=== PATIENT | female | born 1940 | race Caucasian/White ===

== ENCOUNTER → 2018-01-01 | Outpatient (CLI) | payer OTHER, MEDICARE ==
[2018-01-01 10:07] LABS: BASO % 0.4 %; BASO ABS # 0.03 K/uL (0-0.2); EOS % 5.4 %; HEMOGLOBIN 13.9 g/dL (12.0-16.0); IG# 0.03 K/uL (0.00-0.02); LYMPH % 25.7 %; LYMPH ABS # 1.89 K/uL (1.2-3.4); MEAN CELL VOLUME 92.3 fL (80-100); MEAN CORPUSCULAR HEMOGLOBIN 31.3 pg (25-34); MEAN CORPUSCULAR HGB CONC 33.9 g/dl (32-36); MEAN PLATELET VOLUME 9.5 fL (7.4-10.4); MONO % 10.1 %; MONO ABS # 0.74 K/uL (0.11-0.59); NEUT ABS # 4.26 K/uL (1.4-6.5); PLATELET COUNT 208 K/uL (130-400); RED CELL DISTRIBUTION WIDTH CV 13.7 % (11.5-14.5); RED CELL DISTRIBUTION WIDTH SD 46.3 fL (36.4-46.3); WHITE BLOOD COUNT 7.35 K/uL (4.8-10.8)
[2018-01-01 10:15] LABS: ALBUMIN 3.5 gm/dl (3.4-5.0); BLOOD UREA NITROGEN 13 mg/dl (7-18); CALCIUM 9.4 mg/dl (8.5-10.1); CARBON DIOXIDE 30 mmol/L (21-32); CREATININE 0.83 mg/dl (0.60-1.20); GLUCOSE 80 mg/dl (70-99); POTASSIUM 3.5 mmol/L (3.5-5.1); SODIUM 139 mmol/L (136-145)
[2018-01-01 10:26] LABS: ALKALINE PHOSPHATASE 67 U/L (45-117); ALT/SGPT 28 U/L (12-78); AST/SGOT 20 U/L (15-37); TOTAL PROTEIN 6.9 gm/dl (6.4-8.2)
== END | disposition home or self-care (01) ==
LOC: C.LABVPSUW 09:30
PROVIDERS: ATTEND Internal Medicine Critical Care Medicine
DX: D64.9 Anemia, unspecified (principal); E03.9 Hypothyroidism, unspecified; I10 Essential (primary) hypertension; L93.0 Discoid lupus erythematosus

== ENCOUNTER 2019-04-16 10:34 | Inpatient (IN) ==
[2019-04-16 11:37] LABS: Basophils # (auto) 0.03 K/uL (0-0.2); Basophils % (auto) 0.2 %; Eosinophils # (auto) 0.03 K/uL (0-0.5); Eosinophils % (auto) 0.2 %; Hematocrit (blood only) 38.8 % (37-47); Hemoglobin 13.9 g/dL (12.0-16.0); Immature Granulocytes # (auto) 0.06 K/uL (0.00-0.02); Immature Granulocytes % (auto) 0.4 %; Lymphocytes # (auto) 0.95 K/uL (1.2-3.4); Lymphocytes % (auto) 5.7 %; Mean Corpuscular Hgb Conc 35.8 g/dL (32-36); Mean Corpuscular Volume 89.6 fL (80-100); Mean Platelet Volume 8.7 fL (7.4-10.4); Monocytes # (auto) 1.41 K/uL (0.11-0.59); Monocytes % (auto) 8.5 %; Neutrophils # (auto) 14.12 K/uL (1.4-6.5); Platelet Count 252 K/uL (130-400); RDW Coefficient of Variation 12.8 % (11.5-14.5); RDW Standard Deviation 42.2 fL (36.4-46.3); Red Blood Count 4.33 M/uL (4.2-5.4)
[2019-04-16] MEDS ORDERED: SODIUM CHLORIDE 0.9% 500 ML IV SCH (11:45)
[2019-04-16 11:52] LABS: Albumin Level 3.3 gm/dl (3.4-5.0); BUN Creatinine Ratio 13.5 (10-20); Calcium 9.6 mg/dl (8.5-10.1); Creatinine Clr Calc Pharmacy 52.5 ml/min; Est GFR (African American) 76.6; Est GFR (Non-African American) 66.1; Potassium 3.8 mmol/L (3.5-5.1)
[2019-04-16 11:54] LABS: Appearance Urine Clear (Clear); Bacteria Urine Automated Negative (Negative); Bilirubin Urine Negative (Negative); Blood Urine Negative (Negative); Color Urine Yellow; Glucose Urine UA Negative (Negative); Ketones Urine Negative (Negative); Leukocyte Esterase Urine 2+ (Negative); Nitrite Urine Negative (Negative); Protein Urine Negative (Negative); Specific Gravity Urine 1.015 (1.000-1.030); Urobilinogen Urine Negative (Negative)
[2019-04-16 11:56] LABS: Albumin Globulin Ratio 0.8 (0.9-2); Bilirubin,Total 0.4 mg/dl (0.2-1); Total Protein 7.3 gm/dl (6.4-8.2)
[2019-04-16] MEDS ORDERED: IOVERSOL 100ml IV PRN (12:32)
--- NOTE | 2019-04-16 12:46 | CT Scan Report ---
CT SCAN OF THE ABDOMEN AND PELVIS WITH IV CONTRAST CLINICAL HISTORY: Left lower quadrant abdominal pain. COMPARISON STUDY: No priors. TECHNIQUE: Following the IV administration of 94 cc of Optiray 320, CT scan of the abdomen and pelvi s is performed from the lung bases to the proximal femora. Images are reviewed in the axial, sagittal , and coronal planes. IV contrast was administered without complication. A dose lowering technique wa s utilized adhering to the principles of ALARA. CT DOSE: 484.39 mGy.cm FINDINGS: Lung bases: The heart is normal in size and without pericardial effusion. The coronary arteries are d ensely calcified. The lung bases are clear. Postoperative change is noted in the left breast. A 5.5 x 3 cm fluid collection left breast likely represents a seroma. There is a tiny hiatal hernia. Liver: The contrast-enhanced liver is normal in size, contour, and attenuation. There is no intrahepa tic biliary ductal dilatation. The hepatic veins and portal veins are patent. Gallbladder: Unremarkable. Spleen: Normal in size and attenuation. Pancreas: Unremarkable. Adrenal glands: Unremarkable. Kidneys: The contrast enhanced kidneys demonstrate mild cortical atrophy and are without hydronephros is. The kidneys enhance symmetrically. Abdominal vasculature: The abdominal aorta is normal in course and caliber noting mild to moderate at herosclerotic calcification. Bowel: There is no bowel obstruction. There are scattered colonic diverticula. There is focal wall th ickening involving the distal descending/proximal sigmoid colon with surrounding inflammatory change and trace fluid. The appearance is typical for acute diverticulitis. There is a small and multilocula yared diverticular abscess seen on image #327 which measures approximately 2 x 3 x 1.5 cm. The appendix is well-visualized and normal. Peritoneum: Trace free fluid is noted in the paracolic gutter and the pelvis. No intraperitoneal free air is seen. Lymphadenopathy: None. Pelvic viscera: Evaluation of the pelvis is degraded by streak artifact from a right hip arthroplasty . The bladder is partially distended and grossly unremarkable. The uterus is surgically absent. No ad nexal lesion is seen. Skeletal structures: The skeletal structures are osteopenic. There is [id number] lumbosacral s pondylosis and scoliosis. No lytic or blastic lesions are seen. A right hip arthroplasty is in place. IMPRESSION: 1. Findings are consistent with acute diverticulitis involving the distal descending/proximal sigmoid colon. 2. There is a small loculated diverticular abscess which measures approximately 2 x 3 x 1.5 cm. 3. No intraperitoneal free air is seen. 4. Postoperative change is noted in the left breast, with an associated 5.5 cm simple appearing fluid collection. This likely represents a seroma. Clinical correlation will be required. 5. Additional findings as above. Electronically signed by: Navneet Suresh M.D. 04/16/2019 12:44 PM
[2019-04-16] MEDS ORDERED: AMPICILLIN/SULBACTAM SOD 3,000 MG in 0.9 % SODIUM CHLORIDE 100 ML IV STA (13:07)
--- NOTE | 2019-04-16 14:04 | History & Physical Report ---
Date of Service April 16, 2019 Assessment & Plan (1) Diverticulitis: Patient with diverticulitis with abscess formation. Presently afebrile, hemodynamically stable, non-toxic in appearance. Abdomen is soft, NT and ND. No prior history of diverticulitis. -Observation to medical floor -Unasyn 3mg IV q 6 hours -LR at 80mL/hr x 1 liter -Clear liquid diet -General Surgery consultation -Patient should have referral to GI for colonoscopy after acute issues resolve Present on Admission?: Yes (2) Colonic diverticular abscess: As above Present on Admission?: Yes (3) Lupus: Chronic. Stable -Continue Plaquenil -Continue Prednisone -Stress dosed steroids should patient develop hypotension Present on Admission?: Yes (4) Hypertension: Blood pressure stable at present -Continue Lisinopril -Continue HCTZ -Continue to monitor Present on Admission?: Yes (5) Gout: Chronic. Stable. No acute flare -Continue Allopurinol Present on Admission?: Yes (6) Breast cancer: Patient in remission Present on Admission?: Yes (7) UTI (urinary tract infection): Patient on Nitrofurantoin. Afebrile, no urinary symptoms -Unasyn as above F/E/N - LR at 80mL/hr, monitor electrolytes and replete as needed, Clear liquids for now Ppx - low risk for DVT Code -DNR/DNI per discussion with patient Dispo - Obs to medical floor History of Present Illness Chief Complaint: diverticulitis with abscess Primary Care Provider: [facility] Mrs. Hayward is a pleasant 78yo C female with history of lupus presenting with acute diverticulitis. She has had abdominal pain in the LLQ for the last 7-10 days. Pain is intermittent, squeezing, crescendo, 4/10 in severity. She denies nausea/vomiting/abdominal distention/fevers/chills. Her BMs have been more loose than usual. She had an episode of watery diarrhea this AM. Denies m marguerite/hematochezia. No known history of diverticulitis. Reports last screening colonoscopy performed approximately 10 years ago at the [facility] with no concerning findings. No additional complaints at this time. Recent UTI - patient on day 4/5 of Macrobid ER Course: Unasyn, NSS, Surgical consult Allergies Allergy/AdvReac Type Severity Reaction Status Date / Time SEAFOOD AdvReac Severe Gastrointestinal Uncoded 04/16/19 12:27 Upset Home Medications Home Medications Medication Instructions Recorded Confirmed Type allopurinol [Zyloprim] 300 mg PO QAM 02/16/19 04/16/19 History cholecalciferol (vitamin D3) 4,000 unit PO QAM 02/16/19 04/16/19 History [Vitamin D3] hydrochlorothiazide 25 mg PO QAM 02/16/19 04/16/19 History hydroxychloroquine [Plaquenil] 300 mg PO QAM 02/16/19 04/16/19 History lisinopril [Zestril] 5 mg PO QAM 02/16/19 04/16/19 History bjai-3-oiv-dha-fish oil-flax-E 1 cap PO QAM 02/16/19 04/16/19 History [Thera Tears Nutrition] prednisone 5 mg PO QAM 02/16/19 04/16/19 History nitrofurantoin monohyd/m-cryst 100 mg PO BID 04/16/19 04/16/19 History Past Med/Surg History Medical History Breast cancer In remission Gout H/O: hysterectomy Hypertension Lupus Surgical History H/O bladder repair surgery Family History Other Coronary heart disease Social History Preferred Language: [place] marital status: Current Living Situation: Spouse current occupational status: retired Feels Safe at Home: Yes Smoking Status: Former smoker Hx Alcohol Use: No Hx Substance Use: No Review of Systems Review of Systems: All systems reviewed & are unremarkable except as noted in HPI & below Physical Exam Physical Exam: General: patient resting comfortably, NAD, non-toxic in appearance, AA&O x 4 Skin: warm, dry, intact, no rashes or lesions HEENT: NC/AT, PERRL, EOMI, anicteric sclera, conjunctiva without injection, external ear normal to inspection and nontender, nares patent, moist mucus membranes, dentition intact, no oropharyngeal lesions, neck supple, trachea midline, no LAD, no thyromegaly, no JVD Heart: +S1/S2, regular, no m/r/g Lungs: equal air entry bilaterally, no rales/rhonchi/wheezes Abd: +BS, soft, NT/ND, no masses/organomegaly/ascites Ext: warm, 2+ pulses in UE/LE bilaterally, no clubbing/cyanosis or edema Neuro: nonfocal, patient AA&O x 4, speech intact, no facial droop, moving all extremities on command with equal strength 5/5 Results & Data Vital Signs (Past 12 Hours) Vital Signs Temp Pulse Pulse Resp BP BP Pulse Ox 04/16/19 12:30 77 16 99/64 L 99 04/16/19 10:36 36.6 C 97 H 18 120/76 95 Laboratory Results Lab Results 04/16/19 04/16/19 04/16/19 Range/Units 11:30 11:30 11:39 WBC 16.60 H (4.8-10.8) K/uL RBC 4.33 (4.2-5.4) M/uL Hgb 13.9 (12.0-16.0) g/dL Hct 38.8 (37-47) % MCV 89.6 (80-100) fL MCH 32.1 (25-34) pg MCHC 35.8 (32-36) g/dL RDW Std Deviation 42.2 (36.4-46.3) fL RDW Coeff of Ivana 12.8 (11.5-14.5) % Plt Count 252 (130-400) K/uL MPV 8.7 (7.4-10.4) fL Immature Gran % (Auto) 0.4 % Neut % (Auto) 85.0 % Lymph % (Auto) 5.7 % [place] % (Auto) 8.5 % Eos % (Auto) 0.2 % Baso % (Auto) 0.2 % Immature Gran # (Auto) 0.06 H (0.00-0.02) K/uL Neut # (Auto) 14.12 H (1.4-6.5) K/uL Lymph # (Auto) 0.95 L (1.2-3.4) K/uL [place] # (Auto) 1.41 H (0.11-0.59) K/uL Eos # (Auto) 0.03 (0-0.5) K/uL Baso # (Auto) 0.03 (0-0.2) K/uL Sodium 137 (136-145) mmol/L Potassium 3.8 (3.5-5.1) mmol/L Chloride 101 (98-107) mmol/L Carbon Dioxide 29 (21-32) mmol/L Anion Gap 7.0 (3-11) BUN 11 (7-18) mg/dl Creatinine 0.85 (0.6-1.2) mg/dl Est Cr Clr Drug Dosing 52.5 ml/min Est GFR ( Amer) 76.6 Est GFR (Non-Af Amer) 66.1 BUN/Creatinine Ratio 13.5 (10-20) Glucose 123 H (70-99) mg/dl Calcium 9.6 (8.5-10.1) mg/dl Total Bilirubin 0.4 (0.2-1) mg/dl AST 22 (15-37) U/L ALT 28 (12-78) U/L Alkaline Phosphatase 75 (45-117) U/L Total Protein 7.3 (6.4-8.2) gm/dl Albumin 3.3 L (3.4-5.0) gm/dl Globulin 4.0 (2.5-4.0) gm/dl Albumin/Globulin Ratio 0.8 L (0.9-2) Lipase 114 (73-393) U/L Urine Color Yellow Urine Appearance Clear (Clear) Urine pH 7.0 (4.5-7.5) Ur Specific Ola 1.015 (1.000-1.030) Urine Protein Negative (Negative) Urine Glucose (UA) Negative (Negative) Urine Ketones Negative (Negative) Urine Blood Negative (Negative) Urine Nitrite Negative (Negative) Urine Bilirubin Negative (Negative) Urine Urobilinogen Negative (Negative) Ur Leukocyte Esterase 2+ H (Negative) Urine WBC (Auto) 5-10 H (0-5) /hpf Urine RBC (Auto) 5-10 H (0-4) /hpf U Hyaline Cast (Auto) 1-5 (0-5) /lpf U Epithel Cells (Auto) 10-20 H (0-5) /lpf Urine Bacteria (Auto) Negative (Negative) Diagnostic Findings CT SCAN OF THE ABDOMEN AND PELVIS WITH IV CONTRAST CLINICAL HISTORY: Left lower quadrant abdominal pain. COMPARISON STUDY: No priors. TECHNIQUE: Following the IV administration of 94 cc of Optiray 320, CT scan of the abdomen and pelvis is performed from the lung bases to the proximal femora. Images are reviewed in the axial, sagittal, and coronal planes. IV contrast was administered without complication. A dose lowering technique was utilized adhering to the principles of ALARA. CT DOSE: 484.39 mGy.cm FINDINGS: Lung bases: The heart is normal in size and without pericardial effusion. The coronary arteries are densely calcified. The lung bases are clear. Postoperative change is noted in the left breast. A 5.5 x 3 cm fluid collection left breast likely represents a seroma. There is a tiny hiatal hernia. Liver: The contrast-enhanced liver is normal in size, contour, and attenuation. There is no intrahepatic biliary ductal dilatation. The hepatic veins and portal veins are patent. Gallbladder: Unremarkable. Spleen: Normal in size and attenuation. Pancreas: Unremarkable. Adrenal glands: Unremarkable. Kidneys: The contrast enhanced kidneys demonstrate mild cortical atrophy and are without hydronephrosis. The kidneys enhance symmetrically. Abdominal vasculature: The abdominal aorta is normal in course and caliber noting mild to moderate atherosclerotic calcification. Bowel: There is no bowel obstruction. There are scattered colonic diverticula. There is focal wall thickening involving the distal descending/proximal sigmoid colon with surrounding inflammatory change and trace fluid. The appearance is typical for acute diverticulitis. There is a small and multiloculated diverticular abscess seen on image #327 which measures approximately 2 x 3 x 1.5 cm. The appendix is well-visualized and normal. Peritoneum: Trace free fluid is noted in the paracolic gutter and the pelvis. No intraperitoneal free air is seen. Lymphadenopathy: None. Pelvic viscera: Evaluation of the pelvis is degraded by streak artifact from a right hip arthroplasty. The bladder is partially distended and grossly unremarkable. The uterus is surgically absent. No adnexal lesion is seen. Skeletal structures: The skeletal structures are osteopenic. There is [id number] lumbosacral spondylosis and scoliosis. No lytic or blastic lesions are seen. A right hip arthroplasty is in place. IMPRESSION: 1. Findings are consistent with acute diverticulitis involving the distal desc ending/proximal sigmoid colon. 2. There is a small loculated diverticular abscess which measures approximately 2 x 3 x 1.5 cm. 3. No intraperitoneal free air is seen. 4. Postoperative change is noted in the left breast, with an associated 5.5 cm simple appearing fluid collection. This likely represents a seroma. Clinical correlation will be required. 5. Additional findings as above. Electronically signed by: Navneet Suresh M.D. 04/16/2019 12:44 PM Dictated: 04/16/19 1235 Transcribed: 04/16/19 1235 Code Status & VTE Plan Code Status DNR/DNI per discussion with patient Critical Care Time Critical Care Time: No (1) Hypertension Hypertension type: essential hypertension Qualified Code(s): I10 - Essential (primary) hypertension
--- NOTE | 2019-04-16 14:40 | Surgery Consultation ---
Date of Consultation April 16, 2019 Assessment & Plan (1) Colonic diverticular abscess: (2) Diverticulitis: 78-yo female with first episode of acute diverticulitis complicated by small diverticular abscess. Patient to be admitted by Hospitalist service. Recommend IV cipro and flagyl. Patient can try clear liquids and see how she tolerates. Pain med PRN. No surgical intervention indicated at this time- hopefully abscess will respond to antibiotic therapy. General Surgery will continue to follow her closely. pt seen/as above clinically looks good clear liquids only. IV antibiotics no indication for surgical intervention at this time. will follow along closely. History of Present Illness Reason for Consultation: Diverticular abscess, Diverticulitis History of Present Illness Very pleasant 78-year-old female with past medical history significant for hypertension, gout, lupus, and recent UTI presents to [facility] at the instruction of her primary care provider for evaluation of left lower quadrant abdominal pain x 1 week. Patient states that the pain began shortly after being diagnosed with a UTI. Patient states that she was started on Macrobid for her UTI. She reports that the LLQ abdominal pain, which at first began as just a dull ache, became more intense and sharp. Patient reports that she has never had this type of pain before. Her last colonoscopy was roughly 10 years ago and she states that it was "normal." She denies fever or chills. Denies nausea or vomiting. Past surgical history includes a breast lumpectomy (6 yrs ago) hysterectomy and bladder surgery for bladder prolapse. 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 Denies family history of diverticulitis or colon cancer. Patient does states that she is supposed to fly out to [employer] this . In ED- WBC elevated at 16.60 CT scan of abdomen reveals acute diverticulitis involving the distal descending/proximal sigmoid colon with a small loculated diverticular abscess which measures approximately 2 x 3 x 1.5 cm. Currently, patient states that she is hungry. She reports that her abdominal pain is much improved since arriving to ED. She denies nausea or vomiting. Allergies Allergy/AdvReac Type Severity Reaction Status Date / Time SEAFOOD AdvReac Severe Gastrointestinal Uncoded 04/16/19 12:27 Upset Home Medications Home Medications Medication Instructions Recorded Confirmed Type allopurinol [Zyloprim] 300 mg PO QAM 02/16/19 04/16/19 History cholecalciferol (vitamin D3) 4,000 unit PO QAM 02/16/19 04/16/19 History [Vitamin D3] hydrochlorothiazide 25 mg PO QAM 02/16/19 04/16/19 History hydroxychloroquine [Plaquenil] 300 mg PO QAM 02/16/19 04/16/19 History lisinopril [Zestril] 5 mg PO QAM 02/16/19 04/16/19 History cjrj-1-eee-dha-fish oil-flax-E 1 cap PO QAM 02/16/19 04/16/19 History [Thera Tears Nutrition] prednisone 5 mg PO QAM 02/16/19 04/16/19 History nitrofurantoin monohyd/m-cryst 100 mg PO BID 04/16/19 04/16/19 History Patient History Medical History Breast cancer In remission Gout H/O: hysterectomy Hypertension Lupus Surgical History H/O bladder repair surgery Family History Other Coronary heart disease Social History Preferred Language: Dive[place] marital status: Current Living Situation: Spouse current occupational status: retired Feels Safe at Home: Yes Smoking Status: Former smoker Hx Alcohol Use: No Hx Substance Use: No Physical Exam Constitutional: WD/WN, vitals as above no acute distress Gastrointestinal (Abdomen): Inspection/Auscultation: abdomen not distended Percussion/Palpation: + abdomen tender (tender with deep palpation in left lower quadrant. ) and abdomen soft; no guarding and abdomen not rigid Results & Data Vital Signs (Past 12 Hours) Vital Signs Temp Pulse Pulse Resp BP BP Pulse Ox 04/16/19 12:30 77 16 99/64 L 99 04/16/19 10:36 36.6 C 97 H 18 120/76 95
--- NOTE | 2019-04-16 15:30 | Emergency Department Note ---
Entered by Tona Burris acting as a scribe for Navneet Hamilton MD History of Present Illness General Chief complaint: Abdominal Pain Stated complaint: ABD PAIN Time Seen by Provider: 04/16/19 11:29 Source: patient History of Present Illness Provider complaint: LLQ abdominal pain Onset (ago): week(s) (over the last week ) Location: abdomen and left Maximum Pain Intensity: 4 Current Pain Intensity: 0 Quality: + other (pain) Associated symptoms: + other (diarrhea); no fever/chills and no nausea/vomiting The patient is a 78 year old female who presents to the Emergency Department with complaints of worsening left lower quadrant abdominal pain over the last week. The patient rates her pain at a 0/10 currently but states that when she has the pain she rates it at a 4/10. She denies a history of diverticulitis. She states that her pain began in her left groin over a week ago and states that she also had a bladder infection at this time and is on her last pill of Macrobid. The patient denies being febrile or having nausea or vomiting. She states that she has had a little bit of diarrhea today. She denies having blood in the diarrhea or urine. She reports a history of a bladder repair and a hysterectomy. The patient states that her doctor referred her here. Review of notes show that the patient was sent in for possible diverticulitis. She has had a low grade temperature elevation and a change in bowel habits. She is from the [facility]. Home Medications Home Medications Medication Instructions Recorded Confirmed Type allopurinol [Zyloprim] 300 mg PO QAM 02/16/19 04/16/19 History cholecalciferol (vitamin D3) 4,000 unit PO QAM 02/16/19 04/16/19 History [Vitamin D3] hydrochlorothiazide 25 mg PO QAM 02/16/19 04/16/19 History hydroxychloroquine [Plaquenil] 300 mg PO QAM 02/16/19 04/16/19 History lisinopril [Zestril] 5 mg PO QAM 02/16/19 04/16/19 History oyhd-0-vuz-dha-fish oil-flax-E 1 cap PO QAM 02/16/19 04/16/19 History [Thera Tears Nutrition] prednisone 5 mg PO QAM 02/16/19 04/16/19 History nitrofurantoin monohyd/m-cryst 100 mg PO BID 04/16/19 04/16/19 History Allergies Allergy/AdvReac Type Severity Reaction Status Date / Time SEAFOOD AdvReac Severe Gastrointestinal Uncoded 04/16/19 12:27 Upset Past Med/Surg History Medical History Breast cancer In remission Gout H/O: hysterectomy Hypertension Lupus Surgical History H/O bladder repair surgery Family History Other Coronary heart disease Social History Preferred Language: Czech marital status: Current Living Situation: Spouse current occupational status: retired Feels Safe at Home: Yes Smoking Status: Former smoker Hx Alcohol Use: No Hx Substance Use: No Review of Systems See HPI for pertinent positives & negatives. and A total of 10 systems reviewed and were otherwise negative Physical Exam Vital Signs Vital Signs - 24 hr 04/16/19 10:36 04/16/19 12:30 Temperature 36.6 C Temperature Source Oral Sepsis Recent Fever Within 48 Hours No Sepsis New/Unexplained Change in Mental Status No Sepsis Action Taken by Nursing No Action Required Pulse Rate 97 H Pulse Rate [Finger] 77 Pulse Rhythm [Finger] Regular Pulse Strength [Finger] Normal Respiratory Rate 18 16 Respiratory Effort / Characteristics Non-Labored Spontaneous Non-Labored Spontaneous Respiratory Depth Normal Normal Respiratory Pattern Regular Regular Blood Pressure 120/76 Blood Pressure [Right Arm] 99/64 L Blood Pressure Mean 90 Blood Pressure Mean [Right Arm] 75 Blood Pressure Position Sitting Blood Pressure Position [Right Arm] Lying Pulse Oximetry 95 99 Oxygen Delivery Method Room Air Room Air GENERAL: Patient is in no acute distress. HEENT: No acute trauma, normocephalic atraumatic, mucous membranes moist, no nasal congestion, no scleral icterus. NECK: No stridor, no adenopathy, no meningismus, trachea is midline. LUNGS: Clear to auscultation bilaterally, no wheeze, no rhonchi, breath sounds equal. HEART: Without murmurs gallops or rubs, regular rate and rhythm. ABDOMEN: Soft, moderately tender in the left lower quadrant, bowel sounds positive, no hernias, no peritonitis. EXTREMITIES: No cyanosis or edema, full range of motion of all the joints without pain or difficulty, no signs for acute trauma. NEUROLOGIC: Oriented x 3, no acute motor or sensory deficits, no focal weakness. SKIN: No rash, no jaundice, no diaphoresis. Course 1132: The patient was evaluated in room C2B. A history and physical were performed. 1305: I discussed the patient's case with Bon Whiteside PA-C General Surgery who said that no surgical intervention is necessary and to admit to Medicine. 1310: I updated the patient who verbalized agreement and understanding of the treatment plan. 1314: I discussed the patient's case with Dr. Jose Gilbert who will evaluate the patient for further management. Consultations Consultation #1: Bon Whiteside PA-C General Surgery Time: 13:05 Consultation #2: Dr. Jose Gilbert Time: 13:14 Administered Medications Discontinued Medications Sodium Chloride (Nss) 500 mls @ 999 mls/hr IV .Q31M CHANDAN Stop: 04/16/19 12:15 Last Infusion: 04/16/19 12:15 Dose: 0 mls/hr Documented by: [id number] Admin: 04/16/19 11:44 Dose: 999 mls/hr Documented by: [id number] Ampicillin Sodium/Sulbactam Sodium 3,000 mg/ Sodium Chloride 108 mls @ 200 mls/hr IV NOW STA; Protocol Stop: 04/16/19 13:39 Last Infusion: 04/16/19 14:04 Dose: 0 mls/hr Documented by: [id number] Admin: 04/16/19 13:31 Dose: 200 mls/hr Documented by: [id number] Ioversol (Optiray 320 100ml) 94 ml IV ONCE PRN PRN Reason: Interaction Checking Stop: 04/20/19 12:31 Last Admin: 04/16/19 12:32 Dose: 94 ml Documented by: [id number] Medical Decision Making Differential Diagnosis Differentials include diverticulitis, colitis, abscess, UTI, pyelonephritis, renal colic, hernia, pancreatitis, and hematoma. Medical Records Attestation: I reviewed the patient's medical records. Home Medications Current Medication List: was personally reviewed by me Laboratory Data Attestation: I reviewed the patient's lab results. Result diagrams: 04/16/19 11:30 04/16/19 11:30 Lab Results 04/16/19 04/16/19 04/16/19 Range/Units 11:30 11:30 11:39 WBC 16.60 H (4.8-10.8) K/uL RBC 4.33 (4.2-5.4) M/uL Hgb 13.9 (12.0-16.0) g/dL Hct 38.8 (37-47) % MCV 89.6 (80-100) fL MCH 32.1 (25-34) pg MCHC 35.8 (32-36) g/dL RDW Std Deviation 42.2 (36.4-46.3) fL RDW Coeff of Ivana 12.8 (11.5-14.5) % Plt Count 252 (130-400) K/uL MPV 8.7 (7.4-10.4) fL Immature Gran % (Auto) 0.4 % Neut % (Auto) 85.0 % Lymph % (Auto) 5.7 % Upson % (Auto) 8.5 % Eos % (Auto) 0.2 % Baso % (Auto) 0.2 % Immature Gran # (Auto) 0.06 H (0.00-0.02) K/uL Neut # (Auto) 14.12 H (1.4-6.5) K/uL Lymph # (Auto) 0.95 L (1.2-3.4) K/uL Upson # (Auto) 1.41 H (0.11-0.59) K/uL Eos # (Auto) 0.03 (0-0.5) K/uL Baso # (Auto) 0.03 (0-0.2) K/uL Sodium 137 (136-145) mmol/L Potassium 3.8 (3.5-5.1) mmol/L Chloride 101 (98-107) mmol/L Carbon Dioxide 29 (21-32) mmol/L Anion Gap 7.0 (3-11) BUN 11 (7-18) mg/dl Creatinine 0.85 (0.6-1.2) mg/dl Est Cr Clr Drug Dosing 52.5 ml/min Est GFR ( Amer) 76.6 Est GFR (Non-Af Amer) 66.1 BUN/Creatinine Ratio 13.5 (10-20) Glucose 123 H (70-99) mg/dl Calcium 9.6 (8.5-10.1) mg/dl Total Bilirubin 0.4 (0.2-1) mg/dl AST 22 (15-37) U/L ALT 28 (12-78) U/L Alkaline Phosphatase 75 (45-117) U/L Total Protein 7.3 (6.4-8.2) gm/dl Albumin 3.3 L (3.4-5.0) gm/dl Globulin 4.0 (2.5-4.0) gm/dl Albumin/Globulin Ratio 0.8 L (0.9-2) Lipase 114 (73-393) U/L Urine Color Yellow Urine Appearance Clear (Clear) Urine pH 7.0 (4.5-7.5) Ur Specific Delanson 1.015 (1.000-1.030) Urine Protein Negative (Negative) Urine Glucose (UA) Negative (Negative) Urine Ketones Negative (Negative) Urine Blood Negative (Negative) Urine Nitrite Negative (Negative) Urine Bilirubin Negative (Negative) Urine Urobilinogen Negative (Negative) Ur Leukocyte Esterase 2+ H (Negative) Urine WBC (Auto) 5-10 H (0-5) /hpf Urine RBC (Auto) 5-10 H (0-4) /hpf U Hyaline Cast (Auto) 1-5 (0-5) /lpf U Epithel Cells (Auto) 10-20 H (0-5) /lpf Urine Bacteria (Auto) Negative (Negative) Imaging Data Radiologist's Impression: Radiology results as stated below per my review and t he radiologist's interpretation: CT SCAN OF THE ABDOMEN AND PELVIS WITH IV CONTRAST CLINICAL HISTORY: Left lower quadrant abdominal pain. COMPARISON STUDY: No priors. TECHNIQUE: Following the IV administration of 94 cc of Optiray 320, CT scan of the abdomen and pelvis is performed from the lung bases to the proximal femora. Images are reviewed in the axial, sagittal, and coronal planes. IV contrast was administered without complication. A dose lowering technique was utilized adhering to the principles of ALARA. CT DOSE: 484.39 mGy.cm FINDINGS: Lung bases: The heart is normal in size and without pericardial effusion. The coronary arteries are densely calcified. The lung bases are clear. Postoperative change is noted in the left breast. A 5.5 x 3 cm fluid collection left breast likely represents a seroma. There is a tiny hiatal hernia. Liver: The contrast-enhanced liver is normal in size, contour, and attenuation. There is no intrahepatic biliary ductal dilatation. The hepatic veins and portal veins are patent. Gallbladder: Unremarkable. Spleen: Normal in size and attenuation. Pancreas: Unremarkable. Adrenal glands: Unremarkable. Kidneys: The contrast enhanced kidneys demonstrate mild cortical atrophy and are without hydronephrosis. The kidneys enhance symmetrically. Abdominal vasculature: The abdominal aorta is normal in course and caliber noting mild to moderate atherosclerotic calcification. Bowel: There is no bowel obstruction. There are scattered colonic diverticula. There is focal wall thickening involving the distal descending/proximal sigmoid colon with surrounding inflammatory change and trace fluid. The appearance is typical for acute diverticulitis. There is a small and multiloculated diverticular abscess seen on image #327 which measures approximately 2 x 3 x 1.5 cm. The appendix is well-visualized and normal. Peritoneum: Trace free fluid is noted in the paracolic gutter and the pelvis. No intraperitoneal free air is seen. Lymphadenopathy: None. Pelvic viscera: Evaluation of the pelvis is degraded by streak artifact from a right hip arthroplasty. The bladder is partially distended and grossly unremarkable. The uterus is surgically absent. No adnexal lesion is seen. Skeletal structures: The skeletal structures are osteopenic. There is [id number]-[id number] lumbosacral spondylosis and scoliosis. No lytic or blastic lesions are seen. A right hip arthroplasty is in place. IMPRESSION: 1. Findings are consistent with acute diverticulitis involving the distal descending/proximal sigmoid colon. 2. There is a small loculated diverticular abscess which measures approximately 2 x 3 x 1.5 cm. 3. No intraperitoneal free air is seen. 4. Postoperative change is noted in the left breast, with an associated 5.5 cm simple appearing fluid collection. This likely represents a seroma. Clinical correlation will be required. 5. Additional findings as above. Electronically signed by: Navneet Suresh M.D. 04/16/2019 12:44 PM Blood Pressure Blood Pressure Findings: Normal blood pressure MDM Narrative There is a moderate leukocytosis at 16,000, this is consistent with infection. No significant electrolyte abnormality or kidney failure. No findings of pancreatitis. No liver enzyme elevation. Urinalysis shows some contamination, no obvious infection. Abdominal and pelvis CT shows diverticulitis with a small abscess, no bowel perforation. The patient received IV Unasyn, 3 g. She was given IV saline. I spoke with general surgery. A hospital stay was recommended on the medical service. No surgical intervention recommended at this point. I spoke to the patient and case management. The on-call hospitalist has been consulted. Patient has diverticulitis with a small abscess, admission/observation is warranted. Impression & Plan Colonic diverticular abscess, Diverticulitis, Leukocytosis Discharge Plan Visit Data *Final* Discharge Date/Time: 04/16/19 15:35 Chief Complaint: Abdominal Pain Stated Complaint: ABD PAIN ED Provider: Navneet Hamilton Discharge Problem: Colonic diverticular abscess, Diverticulitis, Leukocytosis Patient Disposition: Admitted As Inpatient Discharge Instructions Interventions: ED Discharge Assessment Last Done: 04/16/19 15:35 Discharge Problem: Leukocytosis Qualifiers: Leukocytosis type: unspecified Qualified Code(s): D72.829 - Elevated white blood cell count, unspecified The lyssaibe's documentation has been prepared under my direction and personally reviewed by me in its entirety. I confirm that the note above accurately reflects all work, treatment, procedures, and medical decision making performed by me.
[2019-04-16] MEDS ORDERED: ONDANSETRON INJ 2 MG/ML 2 ML VIAL IV PRN (16:49)
[2019-04-16] MEDS ORDERED: ACETAMINOPHEN 325 MG TAB PO PRN (16:49)
[2019-04-16] MEDS ORDERED: LACTATED RINGER'S 1,000 ML IV SCH (16:49)
[2019-04-16] MEDS: AMPICILLIN/SULBACTAM SOD 3,000 MG in 0.9 % SODIUM CHLORIDE 100 ML IV SCH (20:25)
[2019-04-17] MEDS: AMPICILLIN/SULBACTAM SOD 3,000 MG in 0.9 % SODIUM CHLORIDE 100 ML IV SCH ×2 (01:30→08:46)
[2019-04-17 07:02] LABS: Basophils # (auto) 0.03 K/uL (0-0.2); Basophils % (auto) 0.4 %; Eosinophils # (auto) 0.19 K/uL (0-0.5); Eosinophils % (auto) 2.7 %; Hematocrit (blood only) 36.4 % (37-47); Hemoglobin 12.5 g/dL (12.0-16.0); Immature Granulocytes # (auto) 0.04 K/uL (0.00-0.02); Immature Granulocytes % (auto) 0.6 %; Lymphocytes # (auto) 1.25 K/uL (1.2-3.4); Lymphocytes % (auto) 17.8 %; Mean Corpuscular Hgb Conc 34.3 g/dL (32-36); Mean Platelet Volume 8.9 fL (7.4-10.4); Monocytes # (auto) 0.77 K/uL (0.11-0.59); Neutrophils # (auto) 4.74 K/uL (1.4-6.5); Neutrophils % (auto) 67.5 %; Platelet Count 210 K/uL (130-400); RDW Standard Deviation 43.4 fL (36.4-46.3); White Blood Count 7.02 K/uL (4.8-10.8)
[2019-04-17 07:31] LABS: BUN Creatinine Ratio 11.9 (10-20); Est GFR (African American) 93.6; Est GFR (Non-African American) 80.8; Potassium 3.5 mmol/L (3.5-5.1)
[2019-04-17] MEDS: metroNIDAZOLE 500 MG/100 ML BAG IV SCH ×2 (08:56→16:46)
[2019-04-17] MEDS: CIPROFLOXACIN 400 MG/200 ML BAG IV SCH ×2 (08:56→20:42)
[2019-04-17] MEDS: LISINOPRIL 5 MG TAB PO SCH (08:57)
[2019-04-17] MEDS: predniSONE 5 MG TAB PO SCH (08:57)
[2019-04-17] MEDS: hydroCHLOROthiazide 25 MG TAB PO SCH (08:57)
[2019-04-17] MEDS: ALLOPURINOL 300 MG TAB PO SCH (08:58)
[2019-04-17] MEDS: HYDROXYCHLOROQUINE SULFATE 200 MG TAB PO SCH (08:58)
[2019-04-17] MEDS: OMEGA-3 (PURIFIED FISH OIL) 1 GM CAP PO SCH (08:58)
--- NOTE | 2019-04-17 10:44 | Surgery Progress Note ---
Date of Service April 17, 2019 Assessment & Plan (1) Diverticulitis: Patient doing very well this AM- abdominal pain has resolved. WBC within normal limits. Pt afebrile, vital signs stable. She is tolerating a clear liquid diet. IV abx per primary team. Hopefully can be discharged home possibly tomorrow if she continues to do well. Pt will need to be discharged with PO abx. doing great. denies pain today wbc normal will advance to full liquids will need home antibiotics and low residue diet at d/c f/u with me in 2-3 weeks. (2) Colonic diverticular abscess: Subjective Patient sitting in chair at bedside- she states that she feels good. No abdominal pain since yesterday. Denies nausea. Yesenia clear liquid diet very well. Physical Exam Gastrointestinal (Abdomen): Inspection/Auscultation: abdomen not distended Percussion/Palpation: abdomen soft; abdomen nontender, no guarding and abdomen not rigid Results & Data Vital Signs (Past 12 Hours) Vital Signs Temp Pulse Pulse Resp BP Pulse Ox 04/17/19 07:31 36.7 C 68 17 118/76 96 04/16/19 23:20 36.7 C 82 16 110/64 96
--- NOTE | 2019-04-17 12:31 | Hospitalist Progress Note ---
Date of Service April 17, 2019 Assessment & Plan (1) Diverticulitis: Patient with diverticulitis with abscess formation. Continues to be afebrile, hemodynamically stable, non-toxic in appearance. Abdomen is soft, NT and ND. No prior history of diverticulitis. -Cipro, flagyl -Clear liquid diet -General Surgery consultation - medical management, can likely dc tomorrow. -Patient should have referral to GI for colonoscopy after acute issues resolve (2) Colonic diverticular abscess: As above (3) Lupus: Chronic. Stable -Continue Plaquenil -Continue Prednisone -no need for stress dosing at this time (4) Hypertension: Blood pressure stable at present -Continue Lisinopril -Continue HCTZ -Continue to monitor (5) Gout: Chronic. Stable. No acute flare -Continue Allopurinol (6) Breast cancer: Patient in remission (7) UTI (urinary tract infection): Patient on Nitrofurantoin. Afebrile, no urinary symptoms - abx as above Ppx - low risk for DVT Subjective Ms. Hayward is feeling well this morning, no pain, no nausea. Had a bowel movement this morning. Tolerating clear liquid diet Review of Systems Review of Systems: All systems reviewed & are unremarkable except as noted in HPI & below Physical Exam Physical Exam: General: no distress Eyes: normal inspection, PERLL Respiratory: chest non tender, clear to auscultation, normal breath sounds, no respiratory distress, no accessory muscle use Cardiac: regular rate and rhythm, no rub or gallop, no murmur, no edema, no jvd GI/: hypoactive bowel sounds, no abd pain or tenderness, soft, non distended Extremities: normal range of motion, normal strength, non tender Neuro/Psych: alert and oriented x 3, normal mood and affect Skin: normal color, dry Results & Data Vital Signs (Past 12 Hours) Vital Signs Temp Pulse Resp BP Pulse Ox 04/17/19 07:31 36.7 C 68 17 118/76 96 (1) Hypertension Hypertension type: essential hypertension Qualified Code(s): I10 - Essential (primary) hypertension
[2019-04-18] MEDS: metroNIDAZOLE 500 MG/100 ML BAG IV SCH ×2 (00:46→07:33)
[2019-04-18] MEDS: CIPROFLOXACIN 400 MG/200 ML BAG IV SCH (07:33)
[2019-04-18 08:21] LABS: Basophils # (auto) 0.02 K/uL (0-0.2); Basophils % (auto) 0.3 %; Eosinophils # (auto) 0.18 K/uL (0-0.5); Eosinophils % (auto) 2.5 %; Hematocrit (blood only) 37.5 % (37-47); Immature Granulocytes # (auto) 0.04 K/uL (0.00-0.02); Immature Granulocytes % (auto) 0.5 %; Lymphocytes # (auto) 1.24 K/uL (1.2-3.4); Lymphocytes % (auto) 16.9 %; Mean Corpuscular Hgb Conc 34.7 g/dL (32-36); Mean Corpuscular Volume 90.8 fL (80-100); Mean Platelet Volume 8.8 fL (7.4-10.4); Monocytes # (auto) 0.62 K/uL (0.11-0.59); Monocytes % (auto) 8.4 %; Neutrophils # (auto) 5.24 K/uL (1.4-6.5); Neutrophils % (auto) 71.4 %; Platelet Count 232 K/uL (130-400); RDW Coefficient of Variation 12.7 % (11.5-14.5); RDW Standard Deviation 42.5 fL (36.4-46.3); Red Blood Count 4.13 M/uL (4.2-5.4); White Blood Count 7.34 K/uL (4.8-10.8)
[2019-04-18 08:50] LABS: BUN Creatinine Ratio 9.5 (10-20); Calcium 9.4 mg/dl (8.5-10.1); Creatinine Clr Calc Pharmacy 53.7 ml/min; Est GFR (African American) 78.8; Potassium 3.7 mmol/L (3.5-5.1)
[2019-04-18] MEDS: OMEGA-3 (PURIFIED FISH OIL) 1 GM CAP PO SCH (09:45)
[2019-04-18] MEDS: LISINOPRIL 5 MG TAB PO SCH (09:45)
[2019-04-18] MEDS: predniSONE 5 MG TAB PO SCH (09:45)
[2019-04-18] MEDS: HYDROXYCHLOROQUINE SULFATE 200 MG TAB PO SCH (09:46)
[2019-04-18] MEDS: ALLOPURINOL 300 MG TAB PO SCH (09:46)
[2019-04-18] MEDS: hydroCHLOROthiazide 25 MG TAB PO SCH (09:46)
--- NOTE | 2019-04-18 14:13 | Discharge Summary ---
Date of Service April 18, 2019 Admission HPI Per Admitting Provider Mrs. Hayward is a pleasant 78yo C female with history of lupus presenting with acute diverticulitis. She has had abdominal pain in the LLQ for the last 7-10 days. Pain is intermittent, squeezing, crescendo, 4/10 in severity. She denies nausea/vomiting/abdominal distention/fevers/chills. Her BMs have been more loose than usual. She had an episode of watery diarrhea this AM. Denies melena/hematochezia. No known history of diverticulitis. Reports last screening colonoscopy performed approximately 10 years ago at the [facility] with no concerning findings. No additional complaints at this time. Recent UTI - patient on day 4 of Macrobid ER Course: Unasyn, NSS, Surgical consult Principal Diagnosis Diverticulitis with abscess Discharge Exam Constitutional WD/WN, vitals as above Respiratory normal respiratory effort, lungs clear to auscultation Cardiovascular RRR, no murmur, no edema Gastrointestinal (Abdomen) Inspection/Auscultation: + hypoactive bowel sounds; abdomen not distended Percussion/Palpation: abdomen soft; abdomen nontender and no guarding Musculoskeletal no cyanosis or clubbing, extremities motor strength 5/5 Skin no rashes, warm and dry Neurologic moves all extremities and awake Psychiatric A+Ox3, euthymic affect Discharge Data Allergies Allergy/AdvReac Type Severity Reaction Status Date / Time SEAFOOD AdvReac Severe Gastrointestinal Uncoded 04/16/19 12:27 Upset Consultations 04/16/19 13:15 ED Decision to Admit Stat 04/16/19 16:49 Consult General Surgery Routine Ordered Studies 04/16/19 11:33 CT abd pelvis IV con only Stat Hospital Course (1) Diverticulitis: Patient with diverticulitis with abscess formation. Continues to be afebrile, hemodynamically stable, non-toxic in appearance. Abdomen is soft, NT and ND. No prior history of diverticulitis. -Cipro flagyl - will dc with 10 day regimen -Clear liquid diet - advanced to bland diet -General Surgery consultation - medical management -Patient should have referral to GI for colonoscopy after acute issues resolve (2) Colonic diverticular abscess: As above (3) Lupus: Chronic. Stable -Continue Plaquenil -Continue Prednisone -no need for stress dosing at this time (4) Hypertension: Blood pressure stable at present -Continue Lisinopril -Continue HCTZ (5) Gout: Chronic. Stable. No acute flare -Continue Allopurinol (6) Breast cancer: Patient in remission (7) UTI (urinary tract infection): Patient on Nitrofurantoin. Afebrile, no urinary symptoms - abx as above Ppx - low risk for DVT Total Time Total Time Spent Total Time Spent (In Minutes): greater than 30 minutes Discharge Plan Discharge Items Patient Disposition: [facility] Reason For Visit: DIVERTICULITIS WITH ABSCESS Discharge Diagnosis: Diverticulitis with abscess Discharge Goals: Decrease discomfort and Improve disease control Activity: Resume your previous activity Non-emergency contact: Primary Care Provider Call non-emergency contact if: you have any medication questions, your symptoms worsen, your pain is not controlled, your pain is worsening and you have a fever Follow-up/Referrals: Fortunato Goldman DO [Surgeon] - [facility] [Primary Care Provider] - Diet: Low Fiber Addtl Provider Instructions: Please follow up with Dr. Goldman with general surgery in 2 weeks. Please see your primary care provider within a week. You will discharge with an antibiotic regimen, please complete the full course. Eat a low fiber diet until instructed otherwise by surgery. I did not continue the nitrofurantoin you were taking for your UTI as the ciprofloxacin will cover it. Prescriptions: New metronidazole 500 mg tablet 500 mg PO Q8H Qty: 25 RF: 0 ciprofloxacin HCl 500 mg tablet 500 mg PO BID Qty: 17 RF: 0 Continued prednisone 5 mg tablet 5 mg PO QAM RF: 0 allopurinol [Zyloprim] 300 mg tablet 300 mg PO QAM RF: 0 hydrochlorothiazide 25 mg tablet 25 mg PO QAM RF: 0 hydroxychloroquine [Plaquenil] 200 mg tablet 300 mg PO QAM RF: 0 lisinopril [Zestril] 5 mg tablet 5 mg PO QAM RF: 0 cholecalciferol (vitamin D3) [Vitamin D3] 2,000 unit Capsule 4,000 unit PO QAM RF: 0 Thera Tears Nutrition [phone] [id number]-unit Capsule 1 cap PO QAM RF: 0 Discontinued nitrofurantoin monohyd/m-cryst 100 mg capsule 100 mg PO BID RF: 0 Stand-Alone Forms: Call Back Authorization, [facility] Discharge Orders: Discharge Order (Routine); Ordered 04/18/19 Ordered By: Lacey Vargas Admission Data Admit Date/Time: 04/17/19 16:57 Attending Provider: Luis Eduardo May Admit Provider: Viviana Soria Primary Care Provider: Lacey Cortes Other Providers: Viviana Soria ; Jasmin Abernathy Service: Medical
--- NOTE | 2019-04-18 14:32 | Surgery Progress Note ---
Date of Service April 18, 2019 Assessment & Plan (1) Colonic diverticular abscess: Pt doing very well. No abdominal pain, no nausea. Yesenia low fiber diet. She was seen by motion study engineer yesterday and was given handout on low fiber diet. Ok for discharge to home today. Discharge per primary service. PO abx per primary service. Patient to follow up with General Surgery in 2-3 weeks. Return precautions reviewed. Subjective Patient in chair at bedside- eager to go home today. Feeling wonderful- no abdominal, no nausea. Yesenia low fiber diet. Physical Exam Gastrointestinal (Abdomen): Inspection/Auscultation: abdomen not distended Percussion/Palpation: abdomen soft; abdomen nontender, no guarding and abdomen not rigid Results & Data Vital Signs (Past 12 Hours) Vital Signs Temp Pulse Resp BP Pulse Ox 04/18/19 07:18 36.5 C 69 16 121/74 98
== END 2019-04-18 15:42 | disposition home or self-care (01) | DRG 392 ==
LOC: 3N 10:34 → ED 10:34 → SUATTDRO 14:22 → 3N 15:35

== ENCOUNTER 2019-12-26 06:35 | Inpatient (IN) ==
--- NOTE | 2019-12-06 15:42 | PAT Medication Instructions ---
Medication Instructions Date of Service December 06, 2019 Home Medications allopurinol [Zyloprim] 300 mg PO QAM cholecalciferol (vitamin D3) [Vitamin D3] 4,000 unit PO QAM hydrochlorothiazide 25 mg PO QAM hydroxychloroquine [Plaquenil] 300 mg PO QAM lisinopril [Zestril] 5 mg PO QAM prednisone 5 mg PO QAM cyclosporine [Restasis] 1 drp OPHTHALMIC (EYE) BID valacyclovir 500 mg PO QAM ASK your prescriber and surgeon hydroxychloroquine [Plaquenil] 300 mg PO QAM DO NOT take the morning of surgery cholecalciferol (vitamin D3) [Vitamin D3] 4,000 unit PO QAM hydrochlorothiazide 25 mg PO QAM lisinopril [Zestril] 5 mg PO QAM Take morning of surgery With a small sip of water, OTHERWISE NOTHING TO EAT OR DRINK AFTER MIDNIGHT: allopurinol [Zyloprim] 300 mg PO QAM prednisone 5 mg PO QAM cyclosporine [Restasis] 1 drp OPHTHALMIC (EYE) BID valacyclovir 500 mg PO QAM Take evening before surgery cyclosporine [Restasis] 1 drp OPHTHALMIC (EYE) BID Other Notes If you have any questions please call us at [phone] or [phone] or [phone] or [phone]
--- NOTE | 2019-12-09 11:06 | Anesthesiology Consultation ---
Date of Service December 09, 2019 Assessment & Plan (1) Encounter for pre-operative examination: Chart Review Chart Review: Acceptable Risk for Surgery (pending preop UA (bringing specimen to outpatient lab)) and Patient seen in Pre Admission Testing Teaching & Discussion Pre-Anesthesia Teaching/Discussion Notes: Instructed NPO after midnight before surgery,except medications with 15 cc of water. Medication instructions provided according to the PAT guidelines. History Surgery Operation Date: 12/26/19 08:15 Proposed Procedures p Right Total Shoulder Arthroplasty Chong - Xander Darby M.D. Height/Weight Height: 5 ft 2 in Weight: 68.3 kg Allergies Allergy/AdvReac Type Severity Reaction Status Date / Time morphine AdvReac Unknown n/v Verified 12/05/19 08:27 SEAFOOD AdvReac Severe Gastrointestinal Uncoded 12/05/19 08:27 Upset Medications Home Medications Medication Instructions Recorded Confirmed Last Taken allopurinol [Zyloprim] 300 mg PO QAM 02/16/19 12/05/19 12/05/19 cholecalciferol (vitamin D3) 4,000 unit PO QAM 02/16/19 12/05/19 12/05/19 [Vitamin D3] hydrochlorothiazide 25 mg PO QAM 02/16/19 12/05/19 12/05/19 hydroxychloroquine [Plaquenil] 300 mg PO QAM 02/16/19 12/05/19 12/05/19 lisinopril [Zestril] 5 mg PO QAM 02/16/19 12/05/19 12/05/19 prednisone 5 mg PO QAM 02/16/19 12/05/19 12/05/19 cyclosporine [Restasis] 1 drp OPHTHALMIC (EYE) BID 12/05/19 12/05/19 Unknown valacyclovir 500 mg PO QAM 12/05/19 12/05/19 12/05/19 Past Medical History Medical History Breast cancer in remission/hx radiation- LUE restriction Gout hx History of diverticulitis 03/2019 Hypertension Lupus on prednisone/plaquenil Shoulder problem right Exercise / Class Metabolic Activity II 4-5 Yardwork/Stairs/Walk up hill Past Family History Family History Mother Family history of diabetes mellitus Grandmother Family history of diabetes mellitus Other Coronary heart disease Past Surgical History Surgical History H/O bladder repair surgery H/O: hysterectomy History of colonoscopy History of left cataract surgery History of lumpectomy of left breast History of right cataract surgery History of total right hip replacement Past Anesthesia History No Family Hx of Anesthesia Complications and Other ("slow to wake") History of PONV No Hx of PONV and No Hx of Motion Sickness Social History Smoking Status: Former smoker tobacco type: cigarettes Do You Dip or Chew Tobacco: No Smoking End Date: QUIT 40 YRS AGO Hx Alcohol Use: Yes Alcohol type: wine and hard liquor alcohol intake frequency: other Alcohol Intake Frequency Comment: ONCE A WEEK Hx Substance Use: No substance use type: does not use Review of Systems Patient denies chest pain, shortness of breath, dyspnea on exertion, joint pain, reflux, cough, wheezing, palpitations. Physical Exam Vital Signs VITALS BP 118/73 P 80 TEMP 98.5 SP02 98%RA RESP 18 PHYSICAL Full neck and c-spine range of motion. Full TMJ range of motion. TMD 4 finger breaths Mallampati Score 3 Dentition: intact, several crowns, upper front left filling Lungs: clear throughout to auscultation Cardiac: regular rate and rhythm, no murmurs noted Spine: normal Carotid arteries: negative bruit Extremities: no edema Testing Laboratory Results 12/09/19 11:19 12/09/19 11:19 PT 10.4 Seconds (9.0-12.0) 12/09/19 11: INR 1.0 (0.9-1.1) 12/09/19 11:19 APTT 23.4 Seconds (21.0-31.0) 12/09/19 11:19 Hemoglobin A1c 5.9 % (4.5-5.6) H 12/09/19 11:19 Blood Type B Positive 12/09/19 11:19 Antibody Screen NEGATIVE 12/09/19 11:19 Electrocardiogram Date: 12/09/19 NSR at 79bpm. LAD. Prolonged QT. Chest X-Ray Date: 12/09/19 Findings: + NAD
[2019-12-09 11:38] LABS: Basophils # (auto) 0.02 K/uL (0-0.2); Basophils % (auto) 0.2 %; Eosinophils # (auto) 0.07 K/uL (0-0.5); Eosinophils % (auto) 0.8 %; Hematocrit (blood only) 43.9 % (37-47); Immature Granulocytes # (auto) 0.04 K/uL (0.00-0.02); Immature Granulocytes % (auto) 0.5 %; Lymphocytes # (auto) 1.02 K/uL (1.2-3.4); Lymphocytes % (auto) 11.6 %; Mean Corpuscular Hemoglobin 32.3 pg (25-34); Mean Corpuscular Hgb Conc 34.2 g/dL (32-36); Mean Corpuscular Volume 94.6 fL (80-100); Monocytes # (auto) 0.57 K/uL (0.11-0.59); Monocytes % (auto) 6.5 %; Neutrophils # (auto) 7.08 K/uL (1.4-6.5); Neutrophils % (auto) 80.4 %; Platelet Count 182 K/uL (130-400); RDW Coefficient of Variation 13.8 % (11.5-14.5); RDW Standard Deviation 47.5 fL (36.4-46.3); Red Blood Count 4.64 M/uL (4.2-5.4)
[2019-12-09 11:52] LABS: Partial Thromboplastin Ratio 0.9; Partial Thromboplastin Time 23.4 Seconds (21.0-31.0); Prothrombin Time 10.4 Seconds (9.0-12.0)
[2019-12-09 11:59] LABS: Estimated Average Glucose 123 mg/dl; Hemoglobin A1C 5.9 % (4.5-5.6)
--- NOTE | 2019-12-09 12:33 | XRay Report ---
XR chest Pre-admission PA/Lat HISTORY: Preop. COMPARISON: None. FINDINGS: The lungs are clear. Cardiac silhouette is normal in size. No pleural effusions. No pneumot horax. Surgical clips noted within the left breast. IMPRESSION: No acute process. ACT 112: Negative or not required by law. Electronically signed by: Kevin Licona M.D. 12/09/2019 12:32 PM
[2019-12-09 13:19] LABS: Albumin Level 3.8 gm/dl (3.4-5.0); BUN Creatinine Ratio 18.9 (10-20); Calcium 9.6 mg/dl (8.5-10.1); Creatinine Clr Calc Pharmacy 47.2 ml/min; Est GFR (African American) 71.9; Est GFR (Non-African American) 62.1; Potassium 3.7 mmol/L (3.5-5.1)
--- NOTE | 2019-12-09 23:00 | Electrocardiogram Report ---
Test Reason : Blood Pressure : / mmHG Vent. Rate : 079 BPM Atrial Rate : 079 BPM P-R Int : 160 ms QRS Dur : 086 ms QT Int : 428 ms P-R-T Axes : 068 -36 024 degrees QTc Int : 490 ms Normal sinus rhythm Left axis deviation Prolonged QT Abnormal ECG No previous ECGs available Confirmed by Chino Parker ([id number]) on 12/09/2019 10:59:49 PM Referred By: Xander Darby Confirmed By:Chino Parker
--- NOTE | 2019-12-25 16:47 | History & Physical Report ---
Date of Service December 25, 2019 Assessment & Plan (1) Right rotator cuff tear arthropathy: She has a massive, retracted, full-thickness supraspinatus rotator cuff tear with 70% fatty atrophy of the muscle belly. This was atraumatic. I explained to her that this is an irrepairable rotator cuff tear. Explained the process of rotator cuff tear arthropathy. We discussed the range of treatment options, including observation, injections, and a reverse total shoulder arthroplasty. I recommended injections as first-line treatment, but surprisingly she was fairly opposed to this. She would really like to just proceed with a reverse total shoulder arthroplasty to improve her function. I do not think that this is unreasonable, as injections will likely only provide temporary benefit, but I still recommended a trial of injections first, but she declined. We will therefore plan for a right reverse total shoulder arthroplasty. We will get a preoperative CT scan for planning. Risks, benefits, and alternatives of surgery were explained in detail. The surgical procedure, as well as postoperative recovery and rehabilitation, was also explained in detail. Risks include bleeding; infection; damage to surrounding structures such as nerves, blood vessels, and tendons that run in the area; persistent pain or stiffness; hardware failure; dislocation; brachial plexus palsy; blood clots; or need for further surgery. The patient understands all of this and wishes to proceed with surgery. Preoperative workup was completed today, and informed consent was obtained. Present on Admission?: Yes History of Present Illness Chief Complaint: Ms. Hayward is a 71-year-old [id number] female who returns today for follow-up of her progressively worsening right shoulder pain and weakness for the past month without any obvious injury or exacerbating event. She denies any significant problems with this shoulder prior to 1 month ago, although she does mention a similar incident of shoulder pain about 10 years ago that improved with therapy. Over the past week she is now had significant pain when reaching behind to latch her bra and also driving. The pain is now waking her up at night. When I first saw her last week for this, her x-rays showed proximal migration of the humeral head that I thought was likely consistent with rotator cuff tear arthropathy. I sent her for an MRI for further evaluation. She returns today for the results of this. Primary Care Provider: [facility] Allergies Allergy/AdvReac Type Severity Reaction Status Date / Time morphine AdvReac Unknown n/v Verified 12/05/19 08:27 SEAFOOD AdvReac Severe Gastrointestinal Uncoded 12/05/19 08:27 Upset Home Medications Home Medications Medication Instructions Recorded Confirmed Type allopurinol [Zyloprim] 300 mg PO QAM 02/16/19 12/05/19 History cholecalciferol (vitamin D3) 4,000 unit PO QAM 02/16/19 12/05/19 History [Vitamin D3] hydrochlorothiazide 25 mg PO QAM 02/16/19 12/05/19 History hydroxychloroquine [Plaquenil] 300 mg PO QAM 02/16/19 12/05/19 History lisinopril [Zestril] 5 mg PO QAM 02/16/19 12/05/19 History prednisone 5 mg PO QAM 02/16/19 12/05/19 History cyclosporine [Restasis] 1 drp OPHTHALMIC (EYE) BID 12/05/19 12/05/19 History valacyclovir 500 mg PO QAM 12/05/19 12/05/19 History Past Med/Surg History Medical History Breast cancer in remission/hx radiation- LUE restriction Gout hx History of diverticulitis 03/2019 Hypertension Lupus on prednisone/plaquenil Shoulder problem right Surgical History H/O bladder repair surgery H/O: hysterectomy History of colonoscopy History of left cataract surgery History of lumpectomy of left breast History of right cataract surgery History of total right hip replacement Family History Mother Family history of diabetes mellitus Grandmother Family history of diabetes mellitus Other Coronary heart disease Social History Preferred Language: Welsh Communication Ability: Effective 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 Awake, alert, and oriented x 3. Appropriate mood and affect. Normal gait and station. Normal coordination and balance. Skin: The skin over the right shoulder shows no lesion or erythema. Inspection/Palpation: Visual inspection reveals no gross deformity of the shoulder. There is no palpable focal swelling. There is no significant focal tenderness to palpation. Range of Motion: There is full symmetric passive range of motion of the shoulder. Active abduction is limited due to pain. Stability: There is no gross ligamentous laxity. Strength: Supraspinatous and especially infraspinatous strength is limited due to pain. Subscapularis strength is well maintained. Sensation: The patient reports no numbness in the hand. Vascular: Hand is warm and well perfused. No diffuse edema. Results & Data Diagnostic Findings MRI of the right shoulder was reviewed. It shows a massive, retracted, full- thickness rotator cuff tear involving the entirety of the supraspinatus tendon and the upper border of the subscapularis. The biceps tendon is ruptured. The infraspinatus looks largely intact. There is about 70% fatty atrophy of the supraspinatus muscle belly, with proximal migration of the humeral head.
[~2019-12-26 06:35] MED LIST: ACETAMINOPHEN 500 MG TAB PO SCH; CEFAZOLIN 2000MG 2,000 MG/15 ML SYR IV SCH; CeleBREX 200 MG CAP PO SCH; DEXAMETHASONE SOD INJ 4 MG/ML VIAL ONE; FAMOTIDINE 20 MG TAB PO SCH; GABAPENTIN 300 MG CAP PO SCH; GLYCOPYRROLATE 0.2 MG/ML VIAL ONE; LR 15ML/HR IV SCH; MIDAZOLAM HCL 1 MG/ML 2ML VIAL ONE; NEOSTIGMINE METHYLSULFATE 5 MG/5 ML SYR ONE; ONDANSETRON INJ 2 MG/ML 2 ML VIAL ONE; PROPOFOL IV EMULSION 10 MG/ML 20 ML VIAL IV ONE; ROCURONIUM BROMIDE 10 MG/ML 5 ML VIAL ONE; TRANEXAMIC ACID 1,000 MG **IV Pre-op IV SCH; dexAMETHasone 4 MG TAB PO SCH; fentaNYL citrate 100 MCG/2 ML VIAL ONE
[2019-12-26] MEDS ORDERED: DEXAMETHASONE SOD INJ 4 MG/ML VIAL ONE (06:44)
[2019-12-26] MEDS ORDERED: ROPIVACAINE 0.5% 5 MG/ML 30 ML VIAL ONE (06:45)
--- NOTE | 2019-12-26 07:50 | History & Physical Bridge Note ---
Date of Service December 26, 2019 History & Physical Bridge Note I have examined the patient, reviewed the History & Physical and in the interval since the performance of the History & Physical I have noted the following changes of clinical significance: no changes noted
[2019-12-26] MEDS ORDERED: LIDOCAINE HCL 2% MPF (LOCAL) 5 ML VIAL INFIL ONE (08:02)
[2019-12-26] MEDS ORDERED: ePHEDrine sulfate 50 MG/ML AMP ONE (09:17)
[2019-12-26] MEDS ORDERED: ONDANSETRON INJ 2 MG/ML 2 ML VIAL IV PRN (10:17)
[2019-12-26] MEDS ORDERED: HYDROmorphone INJ 2 MG/ML SYR/VIAL IV PRN (10:17)
[2019-12-26] MEDS ORDERED: ePHEDrine sulfate 50 MG/ML AMP IV PRN (10:17)
[2019-12-26] MEDS ORDERED: ATROPINE SULFATE 0.1 MG/ML 10ML SYR IV PRN (10:17)
[2019-12-26] MEDS ORDERED: fentaNYL citrate 100 MCG/2 ML VIAL IV PRN (10:17)
[2019-12-26] MEDS ORDERED: DEXAMETHASONE SOD INJ 4 MG/ML VIAL IV PRN (10:17)
--- NOTE | 2019-12-26 11:11 | Post Operative Brief Note ---
Immediate Post Op Note v1 Date of Surgery December 26, 2019 Pre & Post Diagnosis Operation Date: 12/26/19 08:15 Pre-Op Diagnosis: Right Shoulder Rotator Cuff Tear Arthropathy Post-Op Diagnosis: Right Shoulder Rotator Cuff Tear Arthropathy I identified the patient and participated in the time-out.: Yes Procedure Operation Date: 12/26/19 08:15 Actual Procedures p Right Reverse Total Shoulder Arthroplasty, uncemented(Right) - Xander Darby M.D. Surgeon Xander Darby District Associate Judge Hal Das PA-C Estimated Blood Loss 100 Findings Consistent with Post-Op Diagnosis
--- NOTE | 2019-12-26 12:05 | Operative Report ---
Post Operative Report Pre & Post Diagnosis Operation Date: 12/26/19 08:15 Pre-Op Diagnosis: Right Shoulder Rotator Cuff Tear Arthropathy Post-Op Diagnosis: Right Shoulder Rotator Cuff Tear Arthropathy I identified the patient and participated in the time-out.: Yes Procedure Operation Date: 12/26/19 08:15 Actual Procedures Right Reverse Total Shoulder Arthroplasty (25581) Open biceps tenodesis (73910) - Xander Darby M.D. Surgeon Xander Darby Hydroelectric Plant Electrician Hal Das PA-C Estimated Blood Loss 100 Findings Consistent with Post-Op Diagnosis Specimens Humeral head Drains None Anesthesia Type General Regional Complications none Disposition Disposition: Recovery Room Indications Ms. Hayward is a 79-year-old female with chronic right shoulder pain. History, clinical exam, and imaging were consistent with the above diagnosis. Risks, benefits, and alternatives of surgery were explained in detail. The patient understood all this and wished to proceed. Description of Procedure Components Implanted: Tornier Reverse Total Shoulder implants Perform glenoid baseplate: 25mm, 15 degree full wedge with 6.5mm central screw and 5.0mm peripheral screws Glenosphere: 36mm standard Ascend Flex humeral stem: 2B Standard length (70mm) Humeral tray: 1.5mm offset, +0mm thickness Polyethylene insert: 36mm, +9mm thickness Patient was identified in the preoperative holding area. Operative extremity was marked. Regional blockade was given by the Anesthesia Staff. Patient was then brought back to the operating room, and general anesthesia was induced without complication. Appropriate weight-based dose of Ancef was infused intravenously for antibiotic prophylaxis. The patient was then placed in the beachchair position. Right arm was then prepped and draped in a standard sterile fashion using Chlorhexidine prep. A standard deltopectoral incision was made through the skin and subcutaneous tissue. The cephalic vein was identified and retracted medially. Small branches to the deltoid were coagulated as necessary. The clavipectoral fascia was then incised and the subdeltoid space was opened. The rotator cuff was found to be deficient, and I therefore decided to perform a reverse total shoulder arthroplasty as planned preoperatively. The biceps tendon was identified within the bicipital groove and tenodesed at the superior border of the pectoralis tendon with #2 FiberWire sutures. The biceps tendon was then divided proximal to the tenodesis site and the rotator interval was opened. The proximal portion of the biceps tendon was excised. The remaining subscapularis tendon was elevated subperiosteally off of the lesser tuberosity and tagged with a #0 Vicryl suture. The glenohumeral joint was then dislocated, and large osteophytes were debrided with a ronguer. The humeral head cut was then made in the appropriate inclination and version using the cutting guide. The intramedullary canal of the humerus was then opened with a canal finder. The humeral canal was then sequentially broached to the appropriate size. A protective cap was then placed on top of the humeral trial. I then turned my attention to the glenoid. The proximal stump of the biceps tendon was excised, along with the labrum circumferentially around the glenoid. The Blueprint drill guide was then positioned on the glenoid, and the guidepin was then inserted. The 15 degree angled reamer was then inserted over the guidepin and an reamed to an appropriate depth. The central screw hole was drilled, and appropriate length 6.5mm central screw was selected. The baseplate was then implanted into place according to our preoperative Blueprint plan by tightening down the central screw. A peripheral 5mm nonlocking screw was placed superiorly first for additional compression of the baseplate, and then additional locking 5 mm peripheral screws were placed to complete fixation of the baseplate. Glenosphere was then impacted and secured. A trial humeral tray and insert were placed on the trial humeral stem, and a trial reduction was carried out. Once I achieved acceptable joint stability and range of motion with the trial implants, the final humeral implants were assembled on the back table and then impacted into position. I then took the shoulder through full range of motion to ensure good stability and acceptable motion. Wound was then copiously irrigated with sterile saline. Subscapularis was repaired to the lesser tuberosity with #2 FiberWire sutures. Deep fascia was closed with 0 V-lock suture. Subcutaneous tissue was closed with 2-0 V-lock, and skin was closed with 3-0 V-lock. Skin was then sealed with Dermabond. Sterile dressings were then applied with a waterproof silver-impregnated rajendra ssing, and the arm was placed into a sling. The patient was awakened from anesthesia and taken to the Post Anesthesia Care Unit in stable condition. There were no immediate complications from the procedure. I was present and scrubbed for the entire procedure, with the exception of final skin closure and dressing application. Due to the complex nature of the procedure, the entire surgery was performed with the operational assistance of Hal Das PA-C. The optical assistant, under direct supervision, was involved in the performance of all aspects of the surgical procedure including patient positioning, tissue retraction, hemostasis, wound closure, and dressing application. I attest to the content of the Intraoperative Record and any orders documented therein. Any exceptions are noted below.
--- NOTE | 2019-12-26 12:18 | Anesthesiology Progress Note ---
Date of Service December 26, 2019 Anesthesia Post Procedure Vital Signs Vital Signs: Temp Pulse Resp BP BP Pulse Ox 12/26/19 12:05 84 14 112/71 99 12/26/19 11:55 81 16 120/62 100 12/26/19 11:45 82 16 107/65 100 12/26/19 11:39 36.0 C L 86 18 118/65 94 12/26/19 07:03 36.4 C L 79 18 113/78 98 Pain Intensity Right Shoulder: Pain Intensity: 0 Transfer of Care Handoff Completed per policy Notes Mental Status: alert / awake / arousable and participated in evaluation Patient Amnestic to Procedure: Yes Nausea / Vomiting: adequately controlled Pain: adequately controlled Airway Patency, RR, SpO2: stable & adequate BP & HR: stable & adequate Hydration State: stable & adequate Anesthetic Complications: no major complications apparent
--- NOTE | 2019-12-26 12:34 | XRay Report ---
XR shoulder RT min 2V routine CLINICAL HISTORY: Post shoulder surgery COMPARISON: None FINDINGS: Alignment of the right shoulder arthroplasty is anatomic. There is no periprosthetic fract ure or unexpected radiopaque foreign body. IMPRESSION: Expected findings following right shoulder arthroplasty. ACT 112: Negative or not required by law. Electronically signed by: Bi Magana M.D. 12/26/2019 12:33 PM
[2019-12-26] MEDS ORDERED: NALOXONE HCL 0.4 MG/1 ML VIAL/CARP IV PRN (13:01)
[2019-12-26] MEDS ORDERED: MAGNESIUM HYDROXIDE SUSP 30 ML UDC PO PRN (13:01)
[2019-12-26] MEDS ORDERED: bisacodyL 10 MG SUPP PR PRN (13:01)
[2019-12-26] MEDS ORDERED: OXYCODONE HCL IR 5 MG TAB (IMMEDIATE RELEASE) PO PRN (13:01)
[2019-12-26] MEDS ORDERED: METOCLOPRAMIDE HCL INJ 5 MG/ML 2 ML VIAL IV PRN (13:01)
[2019-12-26] MEDS: ACETAMINOPHEN 500 MG TAB PO SCH ×2 (14:12→18:56)
[2019-12-26] MEDS: SODIUM CHLORIDE 0.9% 1000ML 1,000 ML IV SCH (14:13)
[2019-12-26] MEDS: IBUPROFEN 600 MG TAB PO SCH ×2 (16:09→22:09)
[2019-12-26] MEDS: CEFAZOLIN 2000MG 2,000 MG/15 ML SYR IV SCH (16:48)
[2019-12-26] MEDS: DOCUSATE SODIUM 100 MG CAP PO SCH (20:39)
[2019-12-26] MEDS: cycloSPORINE (RESTASIS) OP SCH (20:40)
[2019-12-26] MEDS ORDERED: SENNA 8.6 MG TAB PO SCH (21:00)
[2019-12-26] MEDS ORDERED: COUGH DROP (SUGAR FREE) LOZ 24 LOZ/1 BOX BUCCAL PRN (22:13)
[2019-12-27] MEDS: SODIUM CHLORIDE 0.9% 1000ML 1,000 ML IV SCH (00:10)
[2019-12-27] MEDS: CEFAZOLIN 2000MG 2,000 MG/15 ML SYR IV SCH (00:10)
[2019-12-27] MEDS: ACETAMINOPHEN 500 MG TAB PO SCH ×2 (00:11→06:38)
[2019-12-27] MEDS: IBUPROFEN 600 MG TAB PO SCH ×2 (03:20→09:31)
[2019-12-27 04:59] LABS: Basophils # (auto) 0.01 K/uL (0-0.2); Basophils % (auto) 0.1 %; Hematocrit (blood only) 34.7 % (37-47); Hemoglobin 12.1 g/dL (12.0-16.0); Immature Granulocytes # (auto) 0.05 K/uL (0.00-0.02); Immature Granulocytes % (auto) 0.3 %; Lymphocytes # (auto) 0.86 K/uL (1.2-3.4); Lymphocytes % (auto) 4.8 %; Mean Corpuscular Hemoglobin 32.3 pg (25-34); Mean Corpuscular Hgb Conc 34.9 g/dL (32-36); Mean Corpuscular Volume 92.5 fL (80-100); Mean Platelet Volume 9.7 fL (7.4-10.4); Monocytes # (auto) 1.71 K/uL (0.11-0.59); Monocytes % (auto) 9.6 %; Neutrophils # (auto) 15.24 K/uL (1.4-6.5); Neutrophils % (auto) 85.2 %; Platelet Count 173 K/uL (130-400); RDW Coefficient of Variation 13.6 % (11.5-14.5); RDW Standard Deviation 45.8 fL (36.4-46.3); Red Blood Count 3.75 M/uL (4.2-5.4); White Blood Count 17.87 K/uL (4.8-10.8)
[2019-12-27 05:31] LABS: BUN Creatinine Ratio 14.6 (10-20); Calcium 8.5 mg/dl (8.5-10.1); Est GFR (Non-African American) 52.6; Potassium 4.3 mmol/L (3.5-5.1)
[2019-12-27] MEDS: cycloSPORINE (RESTASIS) OP SCH (08:27)
[2019-12-27] MEDS: DOCUSATE SODIUM 100 MG CAP PO SCH (08:28)
--- NOTE | 2019-12-27 08:39 | Anesthesiology Progress Note ---
Date of Service December 27, 2019 Anesthesia Post Procedure Vital Signs Vital Signs: Temp Pulse Pulse Resp BP Pulse Ox 12/27/19 07:45 36.7 C 82 16 122/76 95 12/27/19 03:29 36.8 C 73 17 106/65 93 12/26/19 22:58 36.7 C 90 17 108/69 93 12/26/19 22:14 36.4 C L 12/26/19 19:51 36.6 C 93 H 17 104/65 92 12/26/19 15:57 36.6 C 100 H 18 113/67 95 12/26/19 14:55 36.6 C 96 H 17 118/63 98 12/26/19 14:11 36.4 C L 96 H 18 113/70 99 12/26/19 13:23 36.4 C L 88 14 103/68 98 12/26/19 12:50 36.5 C 88 16 102/67 94 12/26/19 12:35 36.1 C L 85 13 114/66 99 12/26/19 12:25 36.2 C L 86 10 L 118/71 96 12/26/19 12:15 83 16 102/65 98 12/26/19 12:05 84 14 112/71 99 12/26/19 11:55 81 16 120/62 100 12/26/19 11:45 82 16 107/65 100 12/26/19 11:39 36.0 C L 86 18 118/65 94 Pain Intensity Right Shoulder: Pain Intensity: 0 Notes Mental Status: alert / awake / arousable and participated in evaluation Patient Amnestic to Procedure: Yes Nausea / Vomiting: adequately controlled Pain: adequately controlled Airway Patency, RR, SpO2: stable & adequate BP & HR: stable & adequate Hydration State: stable & adequate Anesthetic Complications: no major complications apparent and Pt Satisfied with anesthetic care
[2019-12-27] MEDS ORDERED: MULTIVITAMIN TAB PO SCH (09:00)
[2019-12-27] MEDS ORDERED: predniSONE 5 MG TAB PO SCH (09:00)
[2019-12-27] MEDS ORDERED: allopurinoL 300 MG TAB PO SCH (09:00)
[2019-12-27] MEDS ORDERED: ASPIRIN 325 MG ECTAB PO SCH (09:00)
[2019-12-27] MEDS ORDERED: CHOLECALCIFEROL 1,000 UNITS 25 MCG TAB PO SCH (09:00)
[2019-12-27] MEDS ORDERED: hydroCHLOROthiazide 25 MG TAB PO SCH (09:00)
[2019-12-27] MEDS ORDERED: lisinopriL 5 MG TAB PO SCH (09:00)
--- NOTE | 2019-12-27 11:04 | Orthopedic Progress Note ---
Date of Service December 27, 2019 Assessment & Plan (1) Right rotator cuff tear arthropathy: POD #1 s/p Right Reverse Total Shoulder Arthroplasty, Open biceps tenodesis Dressing kept in place. PT/OT Pain control DVT prophylaxis--325 mg BID x 30 days. D/C planning--d/c home today. Subjective Right shoulder has no pain it today. States she can feel some spasm in the shoulder from time to time but that's it. Denies CP, SOB, LH. States she lives with her so her plan is to head home, hopefully today. Physical Exam Constitutional: WD/WN, vitals as above Musculoskeletal: Shoulder: + surgical incision (Right anterior shoulder: dressing C/D/I.); no skin erythema, no ecchymosis and no surgical drain present Neurologic: normal touch/pain/proprioception (Right hand with full ROM of fingers. Sensation intact.) Psychiatric: A+Ox3, euthymic affect Speech: normal rate/rhythm/volume of speech Results & Data ([facility]) Vital Signs (Past 12 Hours) Vital Signs Temp Pulse Pulse Resp BP Pulse Ox 12/27/19 07:45 36.7 C 82 16 122/76 95 12/27/19 03:29 36.8 C 73 17 106/65 93
--- NOTE | 2019-12-27 13:04 | Discharge Summary ---
Date of Service December 27, 2019 Admission HPI Per Admitting Provider Ms. Hayward is a 79-year-old female with chronic right shoulder pain consistent with rotator cuff tear arthropathy. Principal Diagnosis Right rotator cuff tear arthropathy Discharge Data Allergies Allergy/AdvReac Type Severity Reaction Status Date / Time shellfish derived AdvReac Severe Gastrointestinal Verified 12/26/19 07:08 Upset morphine AdvReac Unknown n/v Verified 12/26/19 07:08 Procedures Performed Operation Date: 12/26/19 08:15 Actual Procedures p Right Reverse Total Shoulder Arthroplasty, uncemented(Right) - Xander Darby M.D. Ordered Studies 12/26/19 05:00 US - OR guided needle placemen Routine Hospital Course (1) Right rotator cuff tear arthropathy: She was taken to the operating room on the date of admission where she underwent a right reverse total shoulder arthroplasty without complication. She was transferred up to the general orthopedic surgery floor in stable condition. Perioperative antibiotic coverage was initiated with Ancef and continued for 24 hours. She was started on oral pain medications, which controlled her pain very well. She was started on DVT prophylaxis consisting of aspirin 325 mg daily starting the morning after surgery. On postoperative day 1, her pain was very well controlled on oral medications, and she was tolerating regular diet. She was determined to be safe and ready for discharge to home. Total Time Total Time Spent Total Time Spent (In Minutes): 5 Discharge Plan Discharge Items Patient Disposition: Home - Self-Care Reason For Visit: Right Shoulder Rotator Cuff Tear Arthropathy Discharge Diagnosis: right shoulder arthropathy Activity: Per Instructions section Non-emergency contact: Surgeon Call non-emergency contact if: your pain is not controlled, your temperature is above 101.5, your wound has increased redness and your wound has increased drainage Follow-up/Referrals: Xander Darby M.D. [Physician] - Lacey Cortes [Primary Care Provider] - Diet: Regular Addtl Attending Provider Instructions: Things to Watch Out For -Go to the Emergency Room if you have sudden onset of nausea, vomiting, chest pain, shortness of breath, or uncontrollable pain. -Call the clinic or go to the Emergency Room if you have a sudden increase in the amount of wound drainage or the drainage becomes thick, yellow or green, or foul-smelling. -For routine questions, call the clinic during regular business hours (8am-5pm). For urgent issues after regular business hours, you may call the clinic to be connected to the on-call physician. Dressings -A special waterproof, silver-impregnated dressing was placed on your shoulder. Keep this dressing in place for 1 week after surgery. You may shower with the waterproof dressing in place, but do not soak the dressing in the bathtub or pool. -One week after surgery, you may remove the waterproof dressing. You may continue to shower, and let water run BRIEFLY over the incision, but do not soak the incision in the bathtub or pool for 2 weeks. You may also gently clean the incision with mild soap and water; pat the incision dry after cleaning-do not rub the incision. Apply a new dressing daily thereafter. Shoulder Exercises -Keep your operative shoulder in the sling for comfort, except as detailed below. -You should come out of the sling 4-5 times a day for passive pendulum exercises: lean over and swing your arm in a circular pattern. -You should also do active-assisted forward flexion exercises: use your opposite hand to lift your operative arm forward to 90 degrees. -Do not use your arm to push yourself up out of bed or up from a seated position. -Do not flex your elbow (curl motion) or supinate your forearm (rotating palm up) against resistance. ?Subscapularis repair: Do not externally rotate your arm past neutral rotation (forearm pointed straight out from your body) or internally rotate your arm (pull your forearm towards your body) against resistance. Do not abduct your shoulder past 90 degrees (bring your arm out to the side past shoulder level). Ice Pack -You may use an ice pack for pain relief. You should use it 20-30 minutes at a time. Place a towel between the ice pack and your skin to prevent frostbite. -You should use the ice pack fairly regularly for the first 1-2 weeks after surgery to help reduce pain and inflammation. -About 2 weeks after your surgery, you should start using heat to loosen up your shoulder prior to doing your stretching exercises, then use the cooling sleeve after your exercises are complete to reduce swelling and pain. Pain Medicines -You have been prescribed an anti-inflammatory (Motrin/ibuprofen) and a non- narcotic pain medicine (Tylenol/acetaminophen). These are your primary pain medications. Take them each every 6 hours as instructed. It is recommended that you stagger these medicines every 3 hours (i.e. take ibuprofen at 8:00 am, then acetaminophen at 11:00 am, then ibuprofen at 2:00 pm, etc) -DO NOT take any additional anti-inflammatories (Advil, Aleve/naproxen, Mobic/meloxicam, Celebrex) or any additional Tylenol/acetaminophen products with these prescribed medications. -You have also been prescribed an additional narcotic pain medication (oxycodone). Take this medicine ONLY for breakthrough pain not controlled by the ibuprofen and acetaminophen. -Do not drive or operate heavy machinery while taking the narcotic medication. -Common side effects of narcotic pain medicines include itching, nausea, constipation, and feeling ``loopy. However, if you develop a rash or hives, stop taking the medicine and call the clinic. If you develop swelling in your throat or difficulty breathing, go to the Emergency Room or call 911 IMMEDIATELY. -You may take over the counter stool softeners if needed for constipation. Aspirin -Take a full strength (325mg) aspirin every day for 4 weeks (28 days) to prevent blood clots. -If you were taking a baby aspirin (81mg) prior to surgery, you may resume taking this 81mg dose after you complete the 28-day course of the 325mg strength dose; do not take the 325mg dose in addition to your 81mg dose. -Be aware that you will bruise easier while taking Aspirin; this is normal. However, if you develop a significantly large area of swelling after an injury, or have a cut that will not stop bleeding, call the clinic or go to the Emergency Room immediately. Pending Studies at Discharge: No Stand-Alone Forms: My [facility] Medications and DC Order Prescriptions: New aspirin 325 mg Tablet,Delayed Release (Dr/Ec) 325 mg PO QAM Qty: 50 RF: 0 oxycodone 5 mg Tablet 5 - 10 mg PO Q4H PRN (Reason: pain) Qty: 20 RF: 0 Continued prednisone 5 mg tablet 5 mg PO QAM RF: 0 allopurinol [Zyloprim] 300 mg tablet 300 mg PO QAM RF: 0 hydrochlorothiazide 25 mg tablet 25 mg PO QAM RF: 0 hydroxychloroquine [Plaquenil] 200 mg tablet 300 mg PO QAM RF: 0 lisinopril [Zestril] 5 mg tablet 5 mg PO QAM RF: 0 cholecalciferol (vitamin D3) [Vitamin D3] 2,000 unit Capsule 4,000 unit PO QAM RF: 0 Restasis 0.05 % Dropperette 1 drp OPHTHALMIC (EYE) BID RF: 0 valacyclovir 500 mg Tablet 500 mg PO QAM RF: 0 Discharge Orders: Discharge Order (Routine); Ordered 12/27/19 Ordered By: George Guidry Admission Data Admit Date/Time: 12/26/19 11:57 Attending Provider: Xander Darby Admit Provider: Xander Darby Primary Care Provider: Lacey Cortes Other Interventions: Discharge Summary Assessment (RN) Last Done: 12/27/19 11:16 DC Date/Time DO NOT enter until pt leaves facility: 12/27/19 12:09
== END 2019-12-27 12:09 | disposition home or self-care (01) | DRG 483 ==
LOC: ASU 06:35 → EDSTATUS 08:15 → 3E 11:57

== ENCOUNTER 2021-02-04 09:55 | Inpatient (IN) ==
--- NOTE | 2021-01-08 15:08 | PAT Medication Instructions ---
Medication Instructions Date of Service January 08, 2021 Home Medications allopurinol [Zyloprim] 300 mg PO QAM hydrochlorothiazide 25 mg PO QAM hydroxychloroquine [Plaquenil] 300 mg PO QAM lisinopril [Zestril] 5 mg PO QAM prednisone 5 mg PO QAM alendronate [Fosamax] 70 mg PO WK propylene glycol-glycerin [Soothe Lubricant] drp OPHTHALMIC (EYE) HS ASK your prescriber and surgeon hydroxychloroquine [Plaquenil] 300 mg PO QAM DO NOT take the morning of surgery hydrochlorothiazide 25 mg PO QAM lisinopril [Zestril] 5 mg PO QAM alendronate [Fosamax] 70 mg PO WK Take morning of surgery With a small sip of water, OTHERWISE NOTHING TO EAT OR DRINK AFTER MIDNIGHT: allopurinol [Zyloprim] 300 mg PO QAM prednisone 5 mg PO QAM Take evening before surgery propylene glycol-glycerin [Soothe Lubricant] drp OPHTHALMIC (EYE) HS Other Notes If you have any questions please call us at [phone] or [phone] or [phone] or [phone]
--- NOTE | 2021-01-12 15:00 | Anesthesiology Consultation ---
Date of Service January 12, 2021 Assessment & Plan (1) Encounter for pre-operative examination: Chart Review Chart Review: Pending: Refer to Additional Notes / Consult section (pending surgeon ordered PCP clearance and preop Covid testing ) and Patient seen in Pre Admission Testing Awaiting surgeon ordered PCP clearance (done 01/12/21) Per PAT appt on 01/12/21, patient denies any recent travel. No known Covid positive contacts or Covid related symptoms. No known Covid infection in the past 90 days. Preop Covid testing 01/28/21= await results. Educated on importance of self quarantining, social distancing and wearing mask in public both for the patient and household contacts. Right reverse total shoulder 12/26/19= Done under [facility] with Grade 1 view with MAC #3. ETT #7.0. Teaching & Discussion Pre-Anesthesia Teaching/Discussion Notes: Instructed NPO after midnight before surgery,except medications with 15 cc of water. Medication instructions provided according to the PAT guidelines. History Surgery Operation Date: 02/04/21 09:35 Proposed Procedures p Left Total Hip Arthroplasty - Jabier Bradshaw MD Height/Weight Height: 5 ft 3 in Weight: 70.9 kg Allergies Allergy/AdvReac Type Severity Reaction Status Date / Time shellfish derived AdvReac Intermediate Gastrointestinal Verified 01/07/21 09:59 Upset morphine AdvReac Mild n/v Verified 01/07/21 09:59 Medications Home Medications Medication Instructions Recorded Confirmed Last Taken allopurinol [Zyloprim] 300 mg PO QAM 02/16/19 01/07/21 12/26/19 05:30 hydrochlorothiazide 25 mg PO QAM 02/16/19 01/07/21 12/26/19 05:30 hydroxychloroquine [Plaquenil] 300 mg PO QAM 02/16/19 01/07/21 12/05/19 lisinopril [Zestril] 5 mg PO QAM 02/16/19 01/07/21 12/26/19 05:30 prednisone 5 mg PO QAM 02/16/19 01/07/21 12/26/19 05:30 alendronate [Fosamax] 70 mg PO WK 01/07/21 01/07/21 Unknown propylene glycol-glycerin [Soothe drp OPHTHALMIC (EYE) HS 01/07/21 Unknown Lubricant] Past Medical History Medical History (Updated 01/12/21 @ 15:30 by Sujatha Mathis PA-C) Dry eye syndrome FOLLOWS WITH EYE DOCTOR ANNUALLY USES LUBRICANT Q HS Hx of breast cancer LEFT (SURGERY AND RADIATION TX 8 YRS AGO) NO CURRENT ISSUES Hx of gout Hypertension Lumbar disc disease Lupus On prednisone/plaquenil- follows with PCP for management - controlled and stable Osteoarthritis Exercise / Class Metabolic Activity III < 4 Walking/Shop/Light housework (one flight of stairs - no chest pain, mild SOB) Past Family History Family History Mother Family history of diabetes mellitus Grandmother No problems noted. Grandmother (Maternal) Family history of diabetes mellitus Other Coronary heart disease No family history of adverse response to anesthesia Past Surgical History Surgical History H/O bladder repair surgery H/O shoulder replacement RT H/O: hysterectomy History of cataract surgery RT/LEFT History of colonoscopy History of esophagogastroduodenoscopy (EGD) History of lumpectomy of left breast History of total right hip replacement Anatone teeth removed Past Anesthesia History No Hx of Anesthesia Complications and No Family Hx of Anesthesia Complications History of PONV No Hx of PONV and No Hx of Motion Sickness Social History Smoking Status: Former smoker tobacco type: cigarettes Do You Dip or Chew Tobacco: No Smoking End Date: 30+ YEARS Hx Alcohol Use: Yes Alcohol type: wine and hard liquor alcohol intake frequency: a few times a month Hx Substance Use: No substance use type: does not use Review of Systems Patient denies chest pain, shortness of breath, dyspnea on exertion, reflux, cough, wheezing, palpitations. No hx of seizures, stroke, MD, apnea/snoring. No hx of blood clots or blood transfusions Physical Exam Vital Signs VITALS BP 118/71 P 94 TEMP 98.1 SP02 96% RESP 16 Constitutional no acute distress ENMT Mouth: no TMJ clicking Thyromental Distance: > or= 3.5 Finger Breadths (3.5) Mallampati Class: III Crowns on molars Neck + limited neck extension (mild ) Respiratory normal respiratory effort; no respiratory distress Auscultation: lungs clear to auscultation bilaterally; no wheezes Cardiovascular Rate/Rhythm: regular rate and regular rhythm Heart Sounds: no murmur Vessels: no carotid bruit Musculoskeletal Spine: no pain with cervical ROM Extremities: extremities normal to inspection Psychiatric Orientation: alert Testing Laboratory Results 01/12/21 15:30 01/12/21 15:30 PT 10.1 Seconds (9.0-12.0) 01/12/21 15:30 INR 1.0 (0.9-1.1) 01/12/21 15:30 Hemoglobin A1c 6.0 % (4.5-5.6) H 01/12/21 15:30 Urine Color Yellow 01/12/21 15:30 Urine Appearance Clear (Clear) 01/12/21 15:30 Urine pH 6.5 (4.5-7.5) 01/12/21 15:30 Ur Specific [place] 1.011 (1.000-1.030) 01/12/21 15:30 Urine Protein Negative (Negative) 01/12/21 15:30 Urine Glucose (UA) Negative (Negative) 01/12/21 15:30 Urine Ketones Negative (Negative) 01/12/21 15:30 Urine Nitrite Positive (Negative) A 01/12/21 15:30 Ur Leukocyte Esterase 2+ (Negative) H 01/12/21 15:30 Urine WBC (Auto) >30 /hpf (0-5) H 01/12/21 15:30 Urine RBC (Auto) 0-4 /hpf (0-4) 01/12/21 15:30 U Hyaline Cast (Auto) 1-5 /lpf (0-5) 01/12/21 15:30 U Epithel Cells (Auto) 0-5 /lpf (0-5) 01/12/21 15:30 Urine Bacteria (Auto) 4+ (Negative) H 01/12/21 15:30 Blood Type B Positive 01/12/21 15:30 Antibody Screen NEGATIVE 01/12/21 15:30 01/12/21 15:30 Urine Culture - Preliminary Urine,Clean Catch Gram negative bacilli L/m with surgeon's office regarding abnormal UA Electrocardiogram Date: 01/12/21 SR with premature supraventricular complexes at 91 bpm. Left axis deviation.
[2021-01-12 16:22] LABS: Basophils # (auto) 0.03 K/uL (0-0.2); Basophils % (auto) 0.3 %; Eosinophils # (auto) 0.07 K/uL (0-0.5); Eosinophils % (auto) 0.7 %; Hematocrit (blood only) 42.7 % (37-47); Hemoglobin 14.6 g/dL (12.0-16.0); Immature Granulocytes # (auto) 0.02 K/uL (0.00-0.02); Immature Granulocytes % (auto) 0.2 %; Lymphocytes # (auto) 1.24 K/uL (1.2-3.4); Lymphocytes % (auto) 12.1 %; Mean Corpuscular Hemoglobin 31.7 pg (25-34); Mean Corpuscular Hgb Conc 34.2 g/dL (32-36); Mean Corpuscular Volume 92.6 fL (80-100); Mean Platelet Volume 9.7 fL (7.4-10.4); Monocytes # (auto) 0.98 K/uL (0.11-0.59); Monocytes % (auto) 9.6 %; Neutrophils # (auto) 7.91 K/uL (1.4-6.5); Neutrophils % (auto) 77.1 %; Platelet Count 217 K/uL (130-400); RDW Coefficient of Variation 13.2 % (11.5-14.5); RDW Standard Deviation 44.4 fL (36.4-46.3); Red Blood Count 4.61 M/uL (4.2-5.4); White Blood Count 10.25 K/uL (4.8-10.8)
[2021-01-12 16:55] LABS: Prothrombin Time 10.1 Seconds (9.0-12.0)
--- NOTE | 2021-01-12 16:57 | Electrocardiogram Report ---
Test Reason : Blood Pressure : / mmHG Vent. Rate : 091 BPM Atrial Rate : 091 BPM P-R Int : 152 ms QRS Dur : 078 ms QT Int : 394 ms P-R-T Axes : 064 -37 032 degrees QTc Int : 484 ms Sinus rhythm with Premature supraventricular complexes Left axis deviation Abnormal ECG When compared with ECG of 09-DEC-2019 11:24, Premature supraventricular complexes are now Present Confirmed by Roland Brand ([id number]) on 01/12/2021 4:56:40 PM Referred By: Jaiber Bradshaw Confirmed By:Rock Brand
[2021-01-12 17:04] LABS: Albumin Level 3.8 gm/dl (3.4-5.0); Calcium 9.6 mg/dl (8.5-10.1); Creatinine Clr Calc Pharmacy 51.9 ml/min; Est GFR (African American) 77.7; Est GFR (Non-African American) 67.1; Potassium 3.7 mmol/L (3.5-5.1)
[2021-01-12 17:07] LABS: Albumin Globulin Ratio 1.1 (0.9-2); Bilirubin,Total 0.5 mg/dl (0.2-1); Globulin 3.5 gm/dl (2.5-4.0); Total Protein 7.3 gm/dl (6.4-8.2)
[2021-01-12 17:08] LABS: Appearance Urine Clear (Clear); Bacteria Urine Automated 4+ (Negative); Bilirubin Urine Negative (Negative); Blood Urine Trace (Negative); Color Urine Yellow; Epithelial Cell Urine Auto 0-5 /lpf (0-5); Glucose Urine UA Negative (Negative); Ketones Urine Negative (Negative); Leukocyte Esterase Urine 2+ (Negative); Nitrite Urine Positive (Negative); Protein Urine Negative (Negative); RBC Urine Automated 0-4 /hpf (0-4); Specific Gravity Urine 1.011 (1.000-1.030); Urobilinogen Urine Negative (Negative); WBC Urine Automated >30 /hpf (0-5); pH Urine 6.5 (4.5-7.5)
[2021-01-13 06:12] LABS: Estimated Average Glucose 126 mg/dl
--- NOTE | 2021-01-13 15:07 | History & Physical Report ---
Date of Service January 13, 2021 Assessment & Plan Admission and Anticipated Discharge Date Admission Date: PRE-OP Diagnosis: Left hip osteoarthritis; lupus Planned Procedure: Left total hip arthroplasty Plan: Patient is scheduled to undergo this procedure at the [facility] on February 04, [address] Jabier Bradshaw. Risks and complications of the procedure such as: Infection, bleeding, pain, scarring, nerve blood vessel damage, weakness, wound problems, stiffness, incomplete relief of symptoms, hardware failure, hardware loosening, wear, fracture, tendon or ligament injury, dislocation, leg length inequality, blood clots, embolism, heart attack, stroke and were explained the patient at her visit today by Dr. Bradshaw. Informed consent form the procedure was obtained. Patient also understands risks of proceeding with surgical intervention during the COVID-19 pandemic. Currently she is asymptomatic and she understands that she will need to be tested 1 week prior to surgery. Patient has her preanesthesia appointment after her visit today and while at the hospital she will obtain a CBC with differential, complete metabolic panel, PT/INR, blood type and screen, urinalysis, urine culture and sensitivity, EKG, hemoglobin A1c and a nasal culture for MRSA. We have already obtained preoperative medical clearance from the patient's primary care provider Dr. Morgan. During today's visit we discussed discharge planning, lectures offered by [facility] regarding joint replacement surgery via zoom, the use of antibiotics before dental cleaning or procedures, proper use of prep wipes, use of an abduction pillow for 6 weeks postoperatively, walker and cane use, purchasing a raised toilet seat and a hip kit, total hip precautions and I provided the patient with paperwork to obtain a handicap placard for her vehicle. Due to her history of lupus will most likely give her a loading dose of prednisone before surgery. I advised patient that I will provide her with prescriptions for an opioid a nalgesic for postoperative pain control, and anti-inflammatory and we will have her on Xarelto for 3 weeks postoperatively for blood clot prevention and then would like her to use 2 baby aspirin daily for an additional week. Patient is scheduled for 2-week postoperative follow-up with myself on February 19 at 1:30 PM. At that appointment I will provide her with an order for outpatient physical therapy and her rehab protocol. Patient verbalizes understanding of all information provided during today's visit. She thanks for the care that she received. Patient states she has questions or concerns should arise prior to her surgery, she will contact clinic. History of Present Illness Chief Complaint: Chief Complaint: Left hip pain Primary Care Provider: Jabier Morgan MD History of Present Illness (including history relevant to procedure): This 80-year-old female presents the clinic today for preoperative history and physical. Patient has had pain in her left hip since April of 2020. She has seen an outside orthopedic surgeon, who has done 2 cortisone shots in her left hip and 2 in her knee. Unfortunately, these have not given her much relief. She has been doing physical therapy for the last 1-1/2 months. Unfortunately, this has not helped her much. She is having difficulty lifting her left leg. She has had a right hip replacement done in the past back in 2006. She says this feels similar to the way her right hip felt before surgery. Denies any numbness or tingling. She feels like the pain is in the groin and nonradiating. Worse with walking and better with rest. Occasionally feels like her hip is going to give out on her. Review Of Systems: A 14 point review of systems performed is unremarkable except for those things stated in the HPI Past Medical History: Problems: Osteoarthritis of left hip Preop testing Actinic cheilitis Cheilitis Breast cancer Spitting suture Changing skin lesion Actinic keratoses Inflamed seborrheic keratosis History of squamous cell carcinoma Breast ca Arthritis of foot Hand arthritis Gout Hypertension Lupus HX: breast cancer Procedure History Procedure Procedure Date Comments Punch biopsy of skin Shave biopsy and cauterisation of skin 07/20/2020 Reverse shoulder replacement 12/26/2019 Mohs micrographic surgery 12/25/2018 Shave biopsy and cauterization of skin 11/27/2018 - right guevara Anterior colporrhaphy 12/13/2017 Cystourethroscopy 12/13/2017 Cystourethroscopy 05/01/2017 Hysterectomy 05/01/2017 Uterosacral ligament 05/01/2017 Mammogram - screening 09/15/2016 - Amendment; Prior outside mammograms from the [facility] dated , 09/23/2013, 09/03/2014, 09/09/15 became available for review. there has been no significant interval change compared to the recent prior mammograms. There are stable post surgical changes/posttreatment changes in the left breast. Scattered benignappearing calcifications bilaterally. No new suspicious mass, architectural distortion or cluster of suspicious microcalcifications is identif ied. Advise follow-upp in 1 year for next annual screening mammogram. - Impression: Expected postsurgical changes in the left breast from prior lumpectomy. There is no mammograpic evidence of maligna ncy bilaterally. Prior outside mammograms are currently being requested and if obtained they will be reviewed and compared to the current exam to assess for any more subtle changes. Then an addendum will be paid to this report. Otherwise, a 1 year screening mammogram is recommended. The patient will receive written notification of the results. Bone density scan 09/15/2016 - T-score: -1.5. Excision squamous cell ca of Right lower leg 2014 - 2014 Pap smear for cervical cancer screening 07/29/2015 - Diagnosis: Negative for intraepithelial lesion or malignancy. Lumpectomy of breast left 2013 - 2013 Pap smear for cervical cancer screening 07/08/2014 - diagnosis: negative for intraepithelial lesion or malignancy. Squamous epithelial atrophy. Pap smear for cervical cancer screening 07/03/2013 - diagnosis: Negative for intraepithelial lesion or malignancy. Hip replacement right 2010 - 2010 Cataracts, bilateral 2010 - 2010 Allergies and Sensitivities: morphine(Vomiting) scallops(nausea, vomitting & diarrhea) lobster(nausea, vomitting, diarrhea) Social history: Patient was a pack per day smoker but quit 35 years ago. She states she consumes approximately 1 alcoholic beverage per week. She denies illicit drug use Family history: Cancer, diabetes, heart disease, lung disease and stroke Current Home Meds: (Last Updated 01/13 11:43) alendronate (Fosamax 70 mg oral tablet) 70 mg PO q7days allopurinol (allopurinol 300 mg oral tablet) TAKE 1 TABLET BY MOUTH DAILY cholecalciferol (Vitamin D3 2000 intl units oral tablet) 4,000 Int_Unit PO Daily ciprofloxacin (Cipro 500 mg oral tablet) 500 mg PO q12h hydroCHLOROthiazide (hydroCHLOROthiazide 25 mg oral tablet) TAKE 1 TABLET BY MOUTH DAILY hydroxychloroquine (hydroxychloroquine 200 mg oral tablet) TAKE 1 AND 1/2 TABLETS BY MOUTH DAILY lisinopril (lisinopril 5 mg oral tablet) TAKE 1 TABLET BY MOUTH DAILY predniSONE (predniSONE 5 mg oral tablet) TAKE 1 TABLET BY MOUTH DAILY Initial Wt: 01/12 71.0 kg 156 lb Allergies Allergy/AdvReac Type Severity Reaction Status Date / Time shellfish derived AdvReac Intermediate Gastrointestinal Verified 01/07/21 09:59 Upset morphine AdvReac Mild n/v Verified 01/07/21 09:59 Home Medications Medication Instructions Recorded Confirmed Type allopurinol [Zyloprim] 300 mg PO QAM 02/16/19 01/07/21 History hydrochlorothiazide 25 mg PO QAM 02/16/19 01/07/21 History hydroxychloroquine [Plaquenil] 300 mg PO QAM 02/16/19 01/07/21 History lisinopril [Zestril] 5 mg PO QAM 02/16/19 01/07/21 History prednisone 5 mg PO QAM 02/16/19 01/07/21 History alendronate [Fosamax] 70 mg PO WK 01/07/21 01/07/21 History propylene glycol-glycerin [Soothe drp OPHTHALMIC (EYE) HS 01/07/21 History Lubricant] Past Med/Surg History Medical History Dry eye syndrome FOLLOWS WITH EYE DOCTOR ANNUALLY USES LUBRICANT Q HS Hx of breast cancer LEFT (SURGERY AND RADIATION TX 8 YRS AGO) NO CURRENT ISSUES Hx of gout Hypertension Lumbar disc disease Lupus On prednisone/plaquenil- follows with PCP for management - controlled and stable Osteoarthritis Surgical History H/O bladder repair surgery H/O shoulder replacement RT H/O: hysterectomy History of cataract surgery RT/LEFT History of colonoscopy History of esophagogastroduodenoscopy (EGD) History of lumpectomy of left breast History of total right hip replacement [place] teeth removed Family History Mother Family history of diabetes mellitus Grandmother No problems noted. Grandmother (Maternal) Family history of diabetes mellitus Other Coronary heart disease No family history of adverse response to anesthesia Social History Smoking Status: Former smoker Second Hand Exposure: Yes ( A CHILD); Hx Alcohol Use: Yes Alcohol type: wine and hard liquor Hx Substance Use: No Preferred Language: Turkish Communication Ability: Effective Visual Impairment: No Limitations Hearing Ability: Normal [employer] Ac[employer] Attorney Required: No Beliefs That Will Affect Care: None marital status: Current Living Situation: Spouse Current Living Situation Comment: LIVES AT [facility]. LIVING current occupational status: retired Feels Safe at Home: Yes Assistive Devices: Glasses Review of Systems All systems reviewed & are unremarkable except as noted in Subjective Physical Exam Physical Exam: Physical Exam: (relevant to the procedure, including heart and lung evaluation) General: Alert and oriented x3 appropriately and hygiene Eyes: Pupils are equal and reactive to light with accommodation. Extraocular movements are intact Throat: Deferred due to COVID-19 precautions Cardiac: Regular rate and rhythm with no murmurs or gallops appreciated Lungs: Clear to auscultation throughout with no wheezing, rales or rhonchi Abdomen: Nonobese, nondistended, nontender with normoactive bowel sounds Extremities: Left hip exam shows the patient's skin to be intact. Distally neurovascularly intact with palpable pulses. Positive Stinchfield test. Range of motion is reasonably well preserved, but is diminished compared with normal. She gets up to 120 degrees of flexion, external rotation to 45 degrees, internal rotation of 15 degrees. Neuro: Cranial nerves II through XII are intact no motor or sensory deficit Skin: Normal appearance no open skin areas or discharge Results & Data ([facility]) Laboratory Results Lab Results 01/12/21 01/12/21 01/12/21 Range/Units 15:30 15:30 15:30 WBC 10.25 (4.8-10.8) K/uL RBC 4.61 (4.2-5.4) M/uL Hgb 14.6 (12.0-16.0) g/dL Hct 42.7 (37-47) % MCV 92.6 (80-100) fL MCH 31.7 (25-34) pg MCHC 34.2 (32-36) g/dL RDW Std Deviation 44.4 (36.4-46.3) fL RDW Coeff of Ivana 13.2 (11.5-14.5) % Plt Count 217 (130-400) K/uL MPV 9.7 (7.4-10.4) fL Immature Gran % (Auto) 0.2 % Neut % (Auto) 77.1 % Lymph % (Auto) 12.1 % [place] % (Auto) 9.6 % Eos % (Auto) 0.7 % Baso % (Auto) 0.3 % Neut # (Auto) 7.91 H (1.4-6.5) K/uL Lymph # (Auto) 1.24 (1.2-3.4) K/uL [place] # (Auto) 0.98 H (0.11-0.59) K/uL Eos # (Auto) 0.07 (0-0.5) K/uL Baso # (Auto) 0.03 (0-0.2) K/uL Immature Gran # (Auto) 0.02 (0.00-0.02) K/uL PT 10.1 (9.0-12.0) Seconds INR 1.0 (0.9-1.1) Sodium (136-145) mmol/L Potassium (3.5-5.1) mmol/L Chloride (98-107) mmol/L Carbon Dioxide (21-32) mmol/L Anion Gap (3-11) BUN (7-18) mg/dl Creatinine (0.6-1.2) mg/dl Est Cr Clr Drug Dosing ml/min Est GFR ( Amer) Est GFR (Non-Af Amer) BUN/Creatinine Ratio (10-20) Glucose (70-99) mg/dl Estimat Average Glucose 126 mg/dl Hemoglobin A1c 6.0 H (4.5-5.6) % Calcium (8.5-10.1) mg/dl Total Bilirubin (0.2-1) mg/dl AST (15-37) U/L ALT (12-78) U/L Alkaline Phosphatase (45-117) U/L Total Protein (6.4-8.2) gm/dl Albumin (3.4-5.0) gm/dl Globulin (2.5-4.0) gm/dl Albumin/Globulin Ratio (0.9-2) Urine Color Urine Appearance (Clear) Urine pH (4.5-7.5) Ur Specific [place] (1.000-1.030) Urine Protein (Negative) Urine Glucose (UA) (Negative) Urine Ketones (Negative) Urine Blood (Negative) Urine Nitrite (Negative) Urine Bilirubin (Negative) Urine Urobilinogen (Negative) Ur Leukocyte Esterase (Negative) Urine WBC (Auto) (0-5) /hpf Urine RBC (Auto) (0-4) /hpf U Hyaline Cast (Auto) (0-5) /lpf U Epithel Cells (Auto) (0-5) /lpf Urine Bacteria (Auto) (Negative) Nasal Screen MRSA (PCR) (Negative) Blood Type Antibody Screen 01/12/21 01/12/21 01/12/21 Range/Units 15:30 15:30 15:30 WBC (4.8-10.8) K/uL RBC (4.2-5.4) M/uL Hgb (12.0-16.0) g/dL Hct (37-47) % MCV (80-100) fL MCH (25-34) pg MCHC (32-36) g/dL RDW Std Deviation (36.4-46.3) fL RDW Coeff of Ivana (11.5-14.5) % Plt Count (130-400) K/uL MPV (7.4-10.4) fL Immature Gran % (Auto) % Neut % (Auto) % Lymph % (Auto) % [place] % (Auto) % Eos % (Auto) % Baso % (Auto) % Neut # (Auto) (1.4-6.5) K/uL Lymph # (Auto) (1.2-3.4) K/uL [place] # (Auto) (0.11-0.59) K/uL Eos # (Auto) (0-0.5) K/uL Baso # (Auto) (0-0.2) K/uL Immature Gran # (Auto) (0.00-0.02) K/uL PT (9.0-12.0) Seconds INR (0.9-1.1) Sodium 138 (136-145) mmol/L Potassium 3.7 (3.5-5.1) mmol/L Chloride 102 (98-107) mmol/L Carbon Dioxide 29 (21-32) mmol/L Anion Gap 7.0 (3-11) BUN 14 (7-18) mg/dl Creatinine 0.83 (0.6-1.2) mg/dl Est Cr Clr Drug Dosing 51.9 ml/min Est GFR ( Amer) 77.7 Est GFR (Non-Af Amer) 67.1 BUN/Creatinine Ratio 17.0 (10-20) Glucose 85 (70-99) mg/dl Estimat Average Glucose mg/dl Hemoglobin A1c (4.5-5.6) % Calcium 9.6 (8.5-10.1) mg/dl Total Bilirubin 0.5 (0.2-1) mg/dl AST 27 (15-37) U/L ALT 32 (12-78) U/L Alkaline Phosphatase 66 (45-117) U/L Total Protein 7.3 (6.4-8.2) gm/dl Albumin 3.8 (3.4-5.0) gm/dl Globulin 3.5 (2.5-4.0) gm/dl Albumin/Globulin Ratio 1.1 (0.9-2) Urine Color Yellow Urine Appearance Clear (Clear) Urine pH 6.5 (4.5-7.5) Ur Specific [place] 1.011 (1.000-1.030) Urine Protein Negative (Negative) Urine Glucose (UA) Negative (Negative) Urine Ketones Negative (Negative) Urine Blood Trace H (Negative) Urine Nitrite Positive A (Negative) Urine Bilirubin Negative (Negative) Urine Urobilinogen Negative (Negative) Ur Leukocyte Esterase 2+ H (Negative) Urine WBC (Auto) >30 H (0-5) /hpf Urine RBC (Auto) 0-4 (0-4) /hpf U Hyaline Cast (Auto) 1-5 (0-5) /lpf U Epithel Cells (Auto) 0-5 (0-5) /lpf Urine Bacteria (Auto) 4+ H (Negative) Nasal Screen MRSA (PCR) Negative (Negative) Blood Type Antibody Screen 01/12/21 Range/Units 15:30 WBC (4.8-10.8) K/uL RBC (4.2-5.4) M/uL Hgb (12.0-16.0) g/dL Hct (37-47) % MCV (80-100) fL MCH (25-34) pg MCHC (32-36) g/dL RDW Std Deviation (36.4-46.3) fL RDW Coeff of Ivana (11.5-14.5) % Plt Count (130-400) K/uL MPV (7.4-10.4) fL Immature Gran % (Auto) % Neut % (Auto) % Lymph % (Auto) % [place] % (Auto) % Eos % (Auto) % Baso % (Auto) % Neut # (Auto) (1.4-6.5) K/uL Lymph # (Auto) (1.2-3.4) K/uL [place] # (Auto) (0.11-0.59) K/uL Eos # (Auto) (0-0.5) K/uL Baso # (Auto) (0-0.2) K/uL Immature Gran # (Auto) (0.00-0.02) K/uL PT (9.0-12.0) Seconds INR (0.9-1.1) Sodium (136-145) mmol/L Potassium (3.5-5.1) mmol/L Chloride (98-107) mmol/L Carbon Dioxide (21-32) mmol/L Anion Gap (3-11) BUN (7-18) mg/dl Creatinine (0.6-1.2) mg/dl Est Cr Clr Drug Dosing ml/min Est GFR ( Amer) Est GFR (Non-Af Amer) BUN/Creatinine Ratio (10-20) Glucose (70-99) mg/dl Estimat Average Glucose mg/dl Hemoglobin A1c (4.5-5.6) % Calcium (8.5-10.1) mg/dl Total Bilirubin (0.2-1) mg/dl AST (15-37) U/L ALT (12-78) U/L Alkaline Phosphatase (45-117) U/L Total Protein (6.4-8.2) gm/dl Albumin (3.4-5.0) gm/dl Globulin (2.5-4.0) gm/dl Albumin/Globulin Ratio (0.9-2) Urine Color Urine Appearance (Clear) Urine pH (4.5-7.5) Ur Specific [place] (1.000-1.030) Urine Protein (Negative) Urine Glucose (UA) (Negative) Urine Ketones (Negative) Urine Blood (Negative) Urine Nitrite (Negative) Urine Bilirubin (Negative) Urine Urobilinogen (Negative) Ur Leukocyte Esterase (Negative) Urine WBC (Auto) (0-5) /hpf Urine RBC (Auto) (0-4) /hpf U Hyaline Cast (Auto) (0-5) /lpf U Epithel Cells (Auto) (0-5) /lpf Urine Bacteria (Auto) (Negative) Nasal Screen MRSA (PCR) (Negative) Blood Type B Positive Antibody Screen NEGATIVE Diagnostic Findings Studies (relevant to the procedure): X-rays done demonstrate [id number] arthritis of the left hip. Proximal femoral cortices appear reasonably well preserved despite her prednisone therapy.
[~2021-02-04 09:55] MED LIST changes: +BUPIVACAINE 0.5 % 5 MG/1 ML PF 10ML VIAL ONE; -CEFAZOLIN 2000MG 2,000 MG/15 ML SYR IV SCH; -DEXAMETHASONE SOD INJ 4 MG/ML VIAL ONE; -GABAPENTIN 300 MG CAP PO SCH; -GLYCOPYRROLATE 0.2 MG/ML VIAL ONE; +LIDOCAINE HCL 2% 2 ML VIAL/AMP(20MG/ML) INFIL ONE; -LR 15ML/HR IV SCH; +LR 500ML BOLUS, THEN 15ML/HR IV SCH; +LR 60ML/HR IV SCH; +METOCLOPRAMIDE HCL 10 MG TABLET PO SCH; -NEOSTIGMINE METHYLSULFATE 5 MG/5 ML SYR ONE; -ONDANSETRON INJ 2 MG/ML 2 ML VIAL ONE; -ROCURONIUM BROMIDE 10 MG/ML 5 ML VIAL ONE; +ROPIVACAINE 0.5% HCL/PF 150 MG, BUPIVACAINE 0.75% MPF 20 ML, EPINEPHrine 0.15 MG, Ketor... INFIL SCH; +Scopolamine 1 MG TDSY TD SCH; +TRANEXAMIC ACID 1,000 MG **IV Intra-op IV SCH; +ceFAZolin 2000MG 2,000 MG/15 ML SYR IV SCH; -fentaNYL citrate 100 MCG/2 ML VIAL ONE; +traMADol HCL 50 MG TABLET PO SCH
--- NOTE | 2021-02-04 10:53 | History & Physical Bridge Note ---
Date of Service February 04, 2021 History & Physical Bridge Note I have examined the patient, reviewed the History & Physical and in the interval since the performance of the History & Physical I have noted the following changes of clinical significance: no changes noted
[2021-02-04] MEDS ORDERED: ePHEDrine sulfate 50 MG/ML AMP IV PRN (10:59)
[2021-02-04] MEDS ORDERED: fentaNYL citrate 100 MCG/2 ML VIAL IV PRN (10:59)
[2021-02-04] MEDS ORDERED: ONDANSETRON INJ 2 MG/ML 2 ML VIAL IV PRN ×2 (10:59→13:19)
[2021-02-04] MEDS ORDERED: HYDROmorphone INJ 2 MG/ML SYR/VIAL IV PRN (10:59)
[2021-02-04] MEDS ORDERED: ATROPINE SULFATE 0.1 MG/ML 10ML SYR IV PRN (10:59)
[2021-02-04] MEDS ORDERED: ORTHO JOINT ANESTHETIC ONE (11:10)
[2021-02-04] MEDS ORDERED: PHENYLEPHRINE 100MCG/ML 5ML SYR ONE (12:44)
[2021-02-04] MEDS ORDERED: PHENYLEPHRINE HCL 10 MG/ML VIAL ONE (12:44)
[2021-02-04] MEDS ORDERED: ONDANSETRON INJ 2 MG/ML 2 ML VIAL ONE (13:04)
[2021-02-04] MEDS ORDERED: DEXAMETHASONE SOD INJ 4 MG/ML VIAL ONE (13:04)
--- NOTE | 2021-02-04 13:11 | Operative Report ---
Post Operative Report Pre & Post Diagnosis Operation Date: 02/04/21 11:55 Pre-Op Diagnosis: Left Hip Arthritis, Lupus Post-Op Diagnosis: Left Hip Arthritis, Lupus I identified the patient and participated in the time-out.: Yes Procedure Operation Date: 02/04/21 11:55 Actual Procedures p Left Total Hip Arthroplasty(Left) - Jabier Bradshaw MD Surgeon Jabier Bradshaw MD On Air Personality AMY Renteria PA-C Estimated Blood Loss 100 Findings Consistent with Post-Op Diagnosis Specimens Left femoral head Anesthesia Type Spinal MAC Complications none Disposition Accompanied Patient To Recovery: No Disposition: Recovery Room Indications 80-year-old female with left hip arthritis refractory to conservative management. She is previously undergone a right total hip arthroplasty in outside institution. Medical history significant for lupus on hydroxychloroquine and prednisone. X-rays demonstrate [id number] arthritis. I had a long discussion with her about the risks and benefits of surgery, alternatives to surgery, expected outcomes. After reviewing all these she elected proceed with surgery. All questions were answered. Informed sent was signed. Description of Procedure Patient was identified in the preoperative holding area and the surgical site, left hip, was marked. A spinal anesthetic was placed, then the patient was brought back to the main operating room, placed in the operating table and moved into the lateral decubitus position. Axillary roll was placed. All bony prominences were padded. Perioperative antibiotics and tranexamic acid 1 gram IV were administered. Operative extremity was prepped and draped in the normal sterile fashion. Prior to incision a multidisciplinary timeout was called. All in the room were in agreement. We began by making an incision for a posterior approach to the hip. We dissected down through subcutaneous tissues to the level of the fascia. The fascia was incised in line with the incision. Charnley bow was placed. The trochanteric bursa was excised. The piriformis and short external rotators were dissected off the posterior aspect of the hip. A box cut was made in the capsule. The femoral head was dislocated. The femoral neck cut was made at our preoperative template. The acetabulum was then exposed. The labrum was sharply excised. Contents of the cotyloid fossa were removed with electrocautery. We then began reaming at a size 8 mm less than our preoperative template. We reamed up by [address] the way up to a size 50 mm cup. This gave us good bleeding cancellus bone circumferentially. The acetabulum was then irrigated out and dried. The real [place] Gription cup was then impacted down into position with 45 degrees of lateral opening and 25 degrees of anteversion. 2 cancellous bone screws were placed up into the ilium. Excellent fixation was obtained. An Altrx polyethylene liner for a 32 mm femoral head was then impacted into the shell. The locking mechanism was checked to ensure that it had engaged which it had. Next we turned our attention to the femur. The lateral neck was removed with a box osteotome. Intramedullary guide was used. We then broached to a size 8 [place] stem. We began trialing with a short neck and a +5 head. Hip was reduced. Leg lengths were symmetric. The hip was stable in extension and external rotation, and stable in the sleeper position. At 90 degrees of hip flexion the hip could be internally rotated 60 degrees before levering out of the cup. I was very happy with the stability exam. Therefore the hip was dislocated and the femoral trial was removed. The femoral canal was irrigated and dried. The real size 8 short neck [place] femoral stem was opened up. This was impacted down into position. It sat at the same level as the femoral trial. Therefore the 32 mm ceramic femoral head with a +5 mm offset was opened up and gently impacted down onto the trunnion. The hip was atraumatically reduced. Another 1 gram of IV tranexamic acid was started prior to closure. The wound was irrigated out with sterile Betadine solution. The periarticular injection cocktail was then placed. The short external rotators, piriformis, and posterior capsule were repaired through drill holes in the greater trochanter using #2 Vicryl. The fascia was run with a looped #1 PDS. The subcutaneous layer was closed with #1 PDS. The dermal layer was closed with 2-0 Vicryl. Zip line was used for the skin followed by a Silverlon dressing. A compressive dressing was then placed. The patient was then rolled supine. Leg lengths were rechecked and were symmetric. An abduction pillow was placed. Sedation was lifted and the patient was transferred to recovery room in stable condition. Of note her blood pressure was stable during the case and she did not need stress dose steroids. Summary of implants: Depuy [place] Gription Acetabular Shell Sector Cup, 50 mm outer diameter 2 [place] Cancellous bone screws, 25 and 20 mm in length [place] Altrx Polyethylene Acetabular Liner, Neutral, with a 32 mm inner diameter DePuy Short neck size 8 [place] collared femoral stem 32 mm ceramic femoral head with +5 offset Postoperative course: Patient will be admitted to the hospital from the recovery room. Patient will be weightbearing as tolerated with posterior hip precautions. Aspirin for DVT prophylaxis I attest to the content of the Intraoperative Record and any orders documented therein. Any exceptions are noted below.
[2021-02-04] MEDS ORDERED: NALOXONE HCL 0.4 MG/1 ML VIAL/CARP IV PRN (13:19)
[2021-02-04] MEDS ORDERED: bisacodyL 10 MG SUPP PR PRN (13:19)
[2021-02-04] MEDS ORDERED: MAGNESIUM HYDROXIDE SUSP 30 ML UDC PO PRN (13:19)
[2021-02-04] MEDS ORDERED: METOCLOPRAMIDE HCL INJ 5 MG/ML 2 ML VIAL IV PRN (13:19)
[2021-02-04] MEDS ORDERED: ALUMINUM/MAGNESIUM SUSP 30 ML UDC PO PRN (13:19)
[2021-02-04] MEDS ORDERED: HYDROmorphone INJ 0.5 MG/0.5 ML SYR IV PRN (13:19)
[2021-02-04] MEDS ORDERED: diphenhydrAMINE 50 MG/ML VIAL IV PRN (13:19)
--- NOTE | 2021-02-04 13:19 | Operative Report ---
Post Operative Report Pre & Post Diagnosis Operation Date: 02/04/21 11:55 Pre-Op Diagnosis: Left Hip Arthritis, Lupus Post-Op Diagnosis: Left Hip Arthritis, Lupus I identified the patient and participated in the time-out.: Yes Procedure Operation Date: 02/04/21 11:55 Actual Procedures p Left Total Hip Arthroplasty(Left) - Jabier Bradshaw MD Surgeon Jabier Bradshaw MD Contract Admin AMY Renteria PA-C Estimated Blood Loss 100 Findings Consistent with Post-Op Diagnosis Specimens femoral head Complications none Disposition Accompanied Patient To Recovery: Yes Disposition: Recovery Room Description of Procedure I was present during the entire procedure assisting with positioning, prepping, draping, wound retraction, wound closure, dressing and abduction pillow placement. No fellow present. Please see Dr. Bradshaw procedure note for specifics of the case. I attest to the content of the Intraoperative Record and any orders documented therein. Any exceptions are noted below.
--- NOTE | 2021-02-04 13:48 | XRay Report ---
XR pelvis 1-2V routine CLINICAL HISTORY: Left hip arthritis. Postsurgical change COMPARISON: December 12, 2020 DISCUSSION: A total right hip arthroplasty is again evident. There is now evidence for a total left h ip arthroplasty. There is no dislocation. IMPRESSION: Bilateral total hip arthroplasties. No evidence of dislocation ACT 112: Negative or not required by law. Electronically signed by: Miquel Stevenson M.D. 02/04/2021 1:47 PM
[2021-02-04] MEDS: SODIUM CHLORIDE 0.9% 1000ML 1,000 ML IV SCH ×2 (14:15→23:48)
[2021-02-04] MEDS ORDERED: KETOROLAC 30 MG/ML VIAL ONE (14:17)
[2021-02-04] MEDS: KETOROLAC TROMETHAMINE 15 MG/ML VIAL IV SCH ×2 (14:20→20:12)
[2021-02-04] MEDS: Scopolamine CHECK PATCH PLACEMENT SCH (15:14)
--- NOTE | 2021-02-04 15:31 | Anesthesiology Progress Note ---
Date of Service February 04, 2021 Anesthesia Post Procedure Vital Signs Vital Signs: Temp Pulse Pulse Resp BP Pulse Ox 02/04/21 14:49 36.5 C 83 16 110/73 97 02/04/21 14:30 77 18 106/71 97 02/04/21 14:21 36.6 C 79 16 97/66 L 97 02/04/21 14:05 36.5 C 77 16 98/62 L 97 02/04/21 13:55 77 16 98/57 L 97 02/04/21 13:45 36.4 C L 79 14 100/58 L 97 02/04/21 13:35 81 14 101/59 L 98 02/04/21 13:25 80 12 100/63 99 02/04/21 13:19 36.5 C 82 15 94/60 L 99 02/04/21 11:17 36.6 C 89 18 121/77 97 Transfer of Care Handoff Completed per policy Notes Mental Status: alert / awake / arousable and participated in evaluation Patient Amnestic to Procedure: Yes Nausea / Vomiting: adequately controlled Pain: adequately controlled Airway Patency, RR, SpO2: stable & adequate BP & HR: stable & adequate Hydration State: stable & adequate Anesthetic Complications: no major complications apparent
[2021-02-04] MEDS: traMADol HCL 50 MG TABLET PO PRN ×2 (18:44→23:00)
[2021-02-04] MEDS ORDERED: TRANEXAMIC ACID / 0.7% NACL 1,000 MG/100 ML BAG IV SCH (19:30)
[2021-02-04] MEDS: SENNA 8.6 MG TAB PO SCH (20:12)
[2021-02-04] MEDS: DOCUSATE SODIUM 100 MG CAP PO SCH (20:13)
--- NOTE | 2021-02-04 20:21 | XRay Report ---
XR femur LT 1V CLINICAL HISTORY: Possible dislocation. Left hip pain. COMPARISON STUDY: Pelvis 02/04/2021. FINDINGS: There is a displaced periprosthetic fracture at the lesser trochanter of the proximal left femur. This results in medial displacement of the femoral prosthesis up to 1 cm. The visualized pelvi c bones are intact. The mid to distal femur is also intact. IMPRESSION: A displaced periprosthetic fracture at the lesser trochanter of the proximal left femur. ACT 112: Negative or not required by law. Electronically signed by: Kevin Licona M.D. 02/04/2021 8:20 PM
--- NOTE | 2021-02-04 20:50 | XRay Report ---
XR hip 1V LT w pelvis CLINICAL HISTORY: AP pelvis and cross table lateral. Left hip fracture. COMPARISON STUDY: Left femur 02/04/2021. FINDINGS: There is a displaced periprosthetic fracture involving the lesser trochanter the proximal l eft femur. This results in both medial and inferior displacement of the left femoral prosthesis in re lation to the femoral shaft. There is a right total arthroplasty. No dislocation. The visualized pelv ic bones are intact. IMPRESSION: Displaced periprosthetic fracture involving the less trochanter of the proximal left fem ur which results in displacement of the femoral prosthesis. ACT 112: Negative or not required by law. Electronically signed by: Kevin Licona M.D. 02/04/2021 8:49 PM
[2021-02-04] MEDS: ACETAMINOPHEN 500 MG TAB PO SCH (21:08)
[2021-02-04] MEDS: ceFAZolin 2000MG 2,000 MG/15 ML SYR IV SCH (21:09)
[2021-02-05] MEDS: Scopolamine CHECK PATCH PLACEMENT SCH ×5 (00:58→23:07)
[2021-02-05] MEDS: KETOROLAC TROMETHAMINE 15 MG/ML VIAL IV SCH ×2 (01:03→21:50)
[2021-02-05] MEDS: ceFAZolin 2000MG 2,000 MG/15 ML SYR IV SCH ×2 (04:31→23:06)
[2021-02-05] MEDS: ACETAMINOPHEN 500 MG TAB PO SCH ×3 (05:23→21:52)
[2021-02-05 05:57] LABS: Basophils # (auto) 0.01 K/uL (0-0.2); Basophils % (auto) 0.1 %; Hemoglobin 11.8 g/dL (12.0-16.0); Immature Granulocytes # (auto) 0.02 K/uL (0.00-0.02); Immature Granulocytes % (auto) 0.1 %; Lymphocytes % (auto) 8.6 %; Mean Corpuscular Hemoglobin 31.5 pg (25-34); Mean Corpuscular Hgb Conc 34.7 g/dL (32-36); Mean Corpuscular Volume 90.7 fL (80-100); Mean Platelet Volume 9.2 fL (7.4-10.4); Monocytes # (auto) 0.26 K/uL (0.11-0.59); Monocytes % (auto) 1.6 %; Neutrophils # (auto) 14.63 K/uL (1.4-6.5); Neutrophils % (auto) 89.6 %; Platelet Count 201 K/uL (130-400); RDW Coefficient of Variation 12.8 % (11.5-14.5); RDW Standard Deviation 42.6 fL (36.4-46.3); Red Blood Count 3.75 M/uL (4.2-5.4); White Blood Count 16.32 K/uL (4.8-10.8)
[2021-02-05 06:29] LABS: BUN Creatinine Ratio 16.7 (10-20); Calcium 7.8 mg/dl (8.5-10.1); Creatinine Clr Calc Pharmacy 47.6 ml/min; Est GFR (African American) 69.5
--- NOTE | 2021-02-05 07:36 | Orthopedic Progress Note ---
Date of Service February 05, 2021 Assessment & Plan (1) Periprosthetic fracture of femur following total replacement of hip: Discussed the complication with patient last night by phone and again this morning. The bone likely failed due to her decreased bone density from chronic prednisone, osteoporosis, and possibly from bisphosphonate treatment. The plan for today is to take her back to the operating room for revision left total hip arthroplasty and open reduction, internal fixation of left periprosthetic femur fracture. Holding her blood pressure medications this morning and her xarelto. She understands that the risk of needing a blood transfusion, or having an infection or dislocation are increased in revision situations like hers. All questions answered. Informed consent sign. Surgical skin marking still visible. Present on Admission?: No (2) Lupus: (3) Osteoporosis: Admission and Anticipated Discharge Date Admission Date: February 04, 2021 Subjective Patient reports she felt crunching in her hip when she got out of bed to walk to the bathroom last night. STAT x-ray was done revealing a [place] A periprosthetic femur fracture. She was made bedrest and NPO since midnight. Reports her pain is under control this morning. Patient reports that her bone mineral density was decreased on her most recent bone scan back in July 2020, so she was started on Fosamax then. Physical Exam Physical Exam: Left leg shortened and externally rotated. Dressing is c/d/i. Distally NVI. Results & Data ([facility]) Vital Signs (Past 12 Hours) Vital Signs Temp Pulse Resp BP Pulse Ox 02/05/21 04:05 36.7 C 81 18 104/63 94 02/04/21 23:09 36.6 C 89 18 113/69 96 02/04/21 19:47 36.6 C 95 H 18 116/74 98
[2021-02-05] MEDS ORDERED: dexAMETHasone 4 MG TAB PO SCH (08:00)
[2021-02-05] MEDS ORDERED: RIVAROXABAN 10 MG TABLET PO SCH (09:00)
[2021-02-05] MEDS ORDERED: hydroCHLOROthiazide 25 MG TAB PO SCH (09:00)
[2021-02-05] MEDS ORDERED: lisinopril 5 MG TAB PO SCH (09:00)
--- NOTE | 2021-02-05 09:34 | Anesthesiology Consultation ---
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 Surgery Operation Date: 02/04/21 11:55 Proposed Procedures p Left Total Hip Arthroplasty - Jabier Bradshaw MD Operation Date: 02/05/21 07:00 Proposed Procedures p ORIF Periprosthetic Fracture Left - Jabier Bradshaw MD Height/Weight Height: 5 ft 3 in Weight: 71.8 kg Allergies Allergy/AdvReac Type Severity Reaction Status Date / Time shellfish derived AdvReac Intermediate Gastrointestinal Verified 02/04/21 10:34 Upset morphine AdvReac Mild n/v Verified 02/04/21 10:34 Medications Home Medications Medication Instructions Recorded Confirmed Last Taken allopurinol [Zyloprim] 300 mg PO QAM 02/16/19 02/04/21 02/04/21 06:30 hydrochlorothiazide 25 mg PO QAM 02/16/19 02/04/21 02/04/21 06:30 hydroxychloroquine [Plaquenil] 300 mg PO QAM 02/16/19 02/04/21 02/04/21 06:30 lisinopril [Zestril] 5 mg PO QAM 02/16/19 02/04/21 02/04/21 06:30 prednisone 5 mg PO QAM 02/16/19 02/04/21 02/04/21 06:30 alendronate [Fosamax] 70 mg PO WK 01/07/21 02/04/21 01/31/21 propylene glycol-glycerin [Dorys drp OPHTHALMIC (EYE) HS 01/07/21 02/03/21 22:00 Lubricant] Active Medications Generic Name Dose Route Start Last Admin Trade Name Freq PRN Reason Stop Dose Admin Acetaminophen 1,000 mg 02/04/21 22:00 02/05/21 05:23 Acetaminophen 500 Mg Tab PO 03/06/21 21:59 Not Given Q8 CHANDAN Docusate Sodium 100 mg 02/04/21 21:00 02/04/21 20:13 Docusate Sodium 100 Mg Cap PO 03/06/21 20:59 100 mg BID CHANDAN Administration Miscellaneous 1 ea 02/04/21 16:00 02/05/21 00:58 Scopolamine Check Patch Placement N/A 02/07/21 07:59 1 ea QS CHANDAN Administration Sennosides 17.2 mg 02/04/21 21:00 02/04/21 20:12 Senna 8.6 Mg Tab PO 03/06/21 20:59 17.2 mg HS CHANDAN Administration Tramadol HCl 50 - 100 mg 02/04/21 13:19 02/04/21 23:00 Tramadol Hcl 50 Mg Tablet PO 03/06/21 13:18 50 mg Q4H PRN Administration Pain & Pre PT NPO Date Last Intake of Fluids: 02/03/21 Time Last Intake of Fluids: 21:00 Date Last Intake of Solids: 02/03/21 Time Last Intake of Solids: 21:00 Past Medical History Medical History Dry eye syndrome FOLLOWS WITH EYE DOCTOR ANNUALLY USES LUBRICANT Q HS Hx of breast cancer LEFT (SURGERY AND RADIATION [place] 8 YRS AGO) NO CURRENT ISSUES Hx of gout Hypertension Lumbar disc disease Lupus On prednisone/plaquenil- follows with PCP for management - controlled and stable Osteoarthritis Past Family History Family History Mother Family history of diabetes mellitus Grandmother No problems noted. Grandmother (Maternal) Family history of diabetes mellitus Other Coronary heart disease No family history of adverse response to anesthesia Past Surgical History Surgical History H/O bladder repair surgery H/O shoulder replacement RT H/O: hysterectomy History of cataract surgery RT/LEFT History of colonoscopy History of esophagogastroduodenoscopy (EGD) History of lumpectomy of left breast History of total right hip replacement [place] teeth removed Social History Smoking Status: Former smoker tobacco type: cigarettes Do You Dip or Chew Tobacco: No Smoking End Date: 30+ YEARS Hx Alcohol Use: Yes Alcohol type: wine and hard liquor alcohol intake frequency: a few times a month Hx Substance Use: No substance use type: does not use Physical Exam Vital Signs Last Vital Signs Temp 98.2 F 02/05/21 07:28 Pulse 80 02/05/21 07:28 Resp 18 02/05/21 07:28 BP 112/66 02/05/21 07:28 Pulse Ox 94 02/05/21 07:28 Testing Laboratory Results 02/05/21 05:32 02/05/21 05:32 PT 10.1 Seconds (9.0-12.0) 01/12/21 15:30 INR 1.0 (0.9-1.1) 01/12/21 15:30 Hemoglobin A1c 6.0 % (4.5-5.6) H 01/12/21 15:30 Urine Color Yellow 01/12/21 15:30 Urine Appearance Clear (Clear) 01/12/21 15:30 Urine pH 6.5 (4.5-7.5) 01/12/21 15:30 Ur Specific [place] 1.011 (1.000-1.030) 01/12/21 15:30 Urine Protein Negative (Negative) 01/12/21 15:30 Urine Glucose (UA) Negative (Negative) 01/12/21 15:30 Urine Ketones Negative (Negative) 01/12/21 15:30 Urine Nitrite Positive (Negative) A 01/12/21 15:30 Ur Leukocyte Esterase 2+ (Negative) H 01/12/21 15:30 Urine WBC (Auto) >30 /hpf (0-5) H 01/12/21 15:30 Urine RBC (Auto) 0-4 /hpf (0-4) 01/12/21 15:30 U Hyaline Cast (Auto) 1-5 /lpf (0-5) 01/12/21 15:30 U Epithel Cells (Auto) 0-5 /lpf (0-5) 01/12/21 15:30 Urine Bacteria (Auto) 4+ (Negative) H 01/12/21 15:30 Blood Type B Positive 01/12/21 15:30 Antibody Screen NEGATIVE 01/12/21 15:30 01/12/21 15:30 Urine Culture - Final Urine,Clean Catch Escherichia coli Electrocardiogram Date: 01/12/21 SR with premature supraventricular complexes at 91 bpm. Left axis deviation.
[2021-02-05] MEDS: MULTIVITAMIN TAB PO SCH (11:11)
[2021-02-05] MEDS: DOCUSATE SODIUM 100 MG CAP PO SCH ×2 (11:12→21:52)
[2021-02-05] MEDS: allopurinoL 300 MG TAB PO SCH (11:13)
[2021-02-05] MEDS: predniSONE 5 MG TAB PO SCH (11:13)
[2021-02-05] MEDS: HYDROXYCHLOROQUINE SULFATE 200 MG TAB PO SCH (11:14)
[2021-02-05] MEDS: traMADol HCL 50 MG TABLET PO PRN (11:31)
[2021-02-05] MEDS ORDERED: MIDAZOLAM HCL 1 MG/ML 2ML VIAL ONE (15:51)
[2021-02-05] MEDS ORDERED: fentaNYL citrate 100 MCG/2 ML VIAL ONE (15:51)
[2021-02-05] MEDS ORDERED: BUPIVACAINE 0.5 % 5 MG/1 ML MPF 30ML VIAL ONE (15:58)
[2021-02-05] MEDS ORDERED: ceFAZolin 2,000 MG/15 ML IV PUSH IV ONE (16:06)
[2021-02-05] MEDS ORDERED: ceFAZolin 2000MG 2,000 MG/15 ML SYR IV ONE (16:08)
[2021-02-05] MEDS ORDERED: ePHEDrine sulfate 50 MG/ML AMP IV PRN (16:16)
[2021-02-05] MEDS ORDERED: fentaNYL citrate 100 MCG/2 ML VIAL IV PRN (16:16)
[2021-02-05] MEDS ORDERED: ONDANSETRON INJ 2 MG/ML 2 ML VIAL IV PRN ×2 (16:16→19:45)
[2021-02-05] MEDS ORDERED: ATROPINE SULFATE 0.1 MG/ML 10ML SYR IV PRN (16:16)
[2021-02-05] MEDS ORDERED: KETAMINE 50 MG/5 ML SYRINGE ONE (16:24)
[2021-02-05] MEDS ORDERED: BUPIVACAINE 0.5 % 5 MG/1 ML PF 10ML VIAL ONE (16:24)
[2021-02-05] MEDS ORDERED: LIDOCAINE HCL 2% 2 ML VIAL/AMP(20MG/ML) INFIL ONE (16:57)
[2021-02-05] MEDS ORDERED: ONDANSETRON INJ 2 MG/ML 2 ML VIAL ONE (16:57)
[2021-02-05] MEDS ORDERED: GLYCOPYRROLATE 0.2 MG/ML VIAL ONE (16:57)
[2021-02-05] MEDS ORDERED: PROPOFOL IV EMULSION 10 MG/ML 20 ML VIAL IV ONE (16:57)
[2021-02-05] MEDS ORDERED: SODIUM CHLORIDE 0.9% 250 ML IV PRN (17:10)
--- NOTE | 2021-02-05 19:10 | Fluoroscopy Report ---
FL hip LT 1V CLINICAL HISTORY: LT PERIPROSTHETIC FX COMPARISON STUDY: 02/04/2021 FLUOROSCOPY TIME: 33 seconds. NUMBER OF FLUOROSCOPIC IMAGES: 2 FINDINGS: 2 intraoperative fluoroscopic spot images reveal a total left hip revision with placement o f a longstem femoral component with proximal cerclage wires. There is no dislocation. IMPRESSION: Intraoperative fluoroscopic spot images demonstrating a longstem total left hip arthropl asty with cerclage wires. ACT 112: Negative or not required by law. Electronically signed by: Miquel Stevenson M.D. 02/05/2021 7:09 PM
--- NOTE | 2021-02-05 19:43 | Post Operative Brief Note ---
Immediate Post Op Note v1 Date of Surgery February 05, 2021 Pre & Post Diagnosis Operation Date: 02/05/21 07:00 Pre-Op Diagnosis: Periprosthetic Fracture Left Hip Post-Op Diagnosis: Periprosthetic Fracture Left Hip I identified the patient and participated in the time-out.: Yes Procedure Operation Date: 02/05/21 07:00 Actual Procedures Revision Right total hip arthroplasty ORIF Periprosthetic Fracture Left(Left) - Jabier Bradshaw MD Surgeon Jabier Bradshaw MD Lens Grinder AMY Renteria PA-C Estimated Blood Loss 300 Findings Consistent with Post-Op Diagnosis Drains Joshi Catheter Anesthesia Type Spinal MAC Complications none Disposition Accompanied Patient To Recovery: No Disposition: Recovery Room
[2021-02-05] MEDS ORDERED: HYDROmorphone INJ 0.5 MG/0.5 ML SYR IV PRN (19:45)
[2021-02-05] MEDS ORDERED: bisacodyL 10 MG SUPP PR PRN (19:45)
[2021-02-05] MEDS ORDERED: diphenhydrAMINE 50 MG/ML VIAL IV PRN (19:45)
[2021-02-05] MEDS ORDERED: ALUMINUM/MAGNESIUM SUSP 30 ML UDC PO PRN (19:45)
[2021-02-05] MEDS ORDERED: NALOXONE HCL 0.4 MG/1 ML VIAL/CARP IV PRN (19:45)
[2021-02-05] MEDS ORDERED: traMADol HCL 50 MG TABLET PO PRN (19:45)
[2021-02-05] MEDS ORDERED: MAGNESIUM HYDROXIDE SUSP 30 ML UDC PO PRN (19:45)
[2021-02-05] MEDS ORDERED: METOCLOPRAMIDE HCL INJ 5 MG/ML 2 ML VIAL IV PRN (19:45)
--- NOTE | 2021-02-05 19:45 | Operative Report ---
Post Operative Report Pre & Post Diagnosis Operation Date: 02/04/21 11:55 Pre-Op Diagnosis: Left Hip Arthritis, Lupus Post-Op Diagnosis: Left Hip Arthritis, Lupus Operation Date: 02/05/21 07:00 Pre-Op Diagnosis: Periprosthetic Fracture Left Hip Post-Op Diagnosis: Periprosthetic Fracture Left Hip I identified the patient and participated in the time-out.: Yes Procedure Operation Date: 02/04/21 11:55 Actual Procedures p Left Total Hip Arthroplasty(Left) - Jabier Bradshaw MD Operation Date: 02/05/21 07:00 Actual Procedures p ORIF Periprosthetic Fracture Left(Left) - Jabier Bradshaw MD Surgeon Jabier Bradshaw MD Sea Foam Kiss Maker AMY Renteria PA-C Estimated Blood Loss 300 Findings Consistent with Post-Op Diagnosis Specimens none Complications none Disposition Accompanied Patient To Recovery: Yes Disposition: Recovery Room Description of Procedure I was present during the entire procedure assisting with positioning, prepping, draping, wound retraction, wound closure, dressing, wound vac and knee immobilizer placement. No fellow present. Please see Dr. Bradshaw procedure note for specifics of the case. I attest to the content of the Intraoperative Record and any orders documented therein. Any exceptions are noted below.
--- NOTE | 2021-02-05 19:49 | Anesthesiology Progress Note ---
Date of Service February 05, 2021 Anesthesia Post Procedure Vital Signs Vital Signs: Temp Pulse Resp BP Pulse Ox 02/05/21 15:44 36.8 C 86 16 128/77 94 02/05/21 07:28 36.8 C 80 18 112/66 94 02/05/21 04:05 36.7 C 81 18 104/63 94 02/04/21 23:09 36.6 C 89 18 113/69 96 Transfer of Care Handoff Completed per policy Notes Mental Status: alert / awake / arousable and participated in evaluation Nausea / Vomiting: adequately controlled Pain: adequately controlled Airway Patency, RR, SpO2: stable & adequate BP & HR: stable & adequate Hydration State: stable & adequate Neuraxial Anesthesia: was administered and sensory block is resolving Anesthetic Complications: no major complications apparent and Pt Satisfied with anesthetic care
--- NOTE | 2021-02-05 20:18 | XRay Report ---
XR femur LT 2V routine CLINICAL HISTORY: Postop examination COMPARISON: 02/04/2021 DISCUSSION: There is evidence for a total left hip revision with a longstem femoral component. There are proximal cerclage wires. There is no dislocation. There is gas within soft tissues consistent wit h recent surgery. There are overlying skin ronald. IMPRESSION: Left hip prosthesis revision with placement of a longstem femoral component with proximal cerclage wires ACT 112: Negative or not required by law. Electronically signed by: Miquel Stevenson M.D. 02/05/2021 8:16 PM
--- NOTE | 2021-02-05 20:30 | XRay Report ---
XR pelvis 1-2V routine CLINICAL HISTORY: AP pelvis only COMPARISON: 02/04/2021 DISCUSSION: There are bilateral total hip arthroplasties. The left hip arthroplasty demonstrates a lo ngstem femoral component. There are proximal cerclage wires. There is skin ronald overlying left hip . There is gas within soft tissues consistent with recent surgery. Degenerative changes are present w ithin the lower lumbar spine IMPRESSION: Left hip prosthesis revision with placement of a longstem femoral component with proximal cerclage wires ACT 112: Negative or not required by law. Electronically signed by: Miquel Stevenson M.D. 02/05/2021 8:29 PM
[2021-02-05 20:33] LABS: Hematocrit (blood only) 33.5 % (37-47); Hemoglobin 11.6 g/dL (12.0-16.0)
[2021-02-05] MEDS ORDERED: CeleBREX 200 MG CAP PO SCH (21:00)
[2021-02-05] MEDS ORDERED: SENNA 8.6 MG TAB PO SCH (21:00)
[2021-02-05] MEDS ORDERED: DOCUSATE SODIUM 100 MG CAP PO SCH (21:00)
[2021-02-05] MEDS: SODIUM CHLORIDE 0.9% 1000ML 1,000 ML IV SCH ×2 (21:46→21:48)
[2021-02-05] MEDS: SENNA 8.6 MG TAB PO SCH (21:50)
[2021-02-05] MEDS ORDERED: ACETAMINOPHEN 500 MG TAB PO SCH (22:00)
--- NOTE | 2021-02-06 00:57 | Operative Report (OR) ---
DATE OF OPERATION: 02/05/2021 PREOPERATIVE DIAGNOSIS: Left femur periprosthetic fracture, [place] B2. POSTOPERATIVE DIAGNOSIS: Left femur periprosthetic fracture, [place] B2. OPERATIONS PERFORMED: 1. Revision left total hip arthroplasty. 2. ORIF left femur periprosthetic fracture. SURGEON: Jabier Bradshaw MD. OFFICE CLERK ROUTINE: Cristi Renteria PA-C. ESTIMATED BLOOD LOSS: 300 mL. SPECIMENS: None. COMPLICATIONS: None. IMPLANTS: 1. DePuy solution stem, 8 inches in length and 12.0 mm in diameter, straight small stature. 2. Biolox delta ceramic 32 mm diameter head with a +5 offset. 3. 2 Synthes cables with crimpers. INDICATIONS: The patient is a 80-year-old female with medical history significant for lupus, on chronic prednisone, and being treated for low bone mineral density with Fosamax who underwent a total hip arthroplasty by myself yesterday. She got up to go to the bathroom last night and felt a crunching sensation in her leg with inability to ambulate. X-rays were obtained demonstrating a [place] B2 periprosthetic left femur fracture. I discussed the complication with the patient and her . Surgery was recommended to reduce and fix the fracture as well as bypass the fracture with a new femoral stem. I had a long discussion with her about the risks and benefits of surgery, alternatives to surgery and expected outcomes. After reviewing all these, she elected to proceed with surgery. All questions were answered. Informed consent was signed. OPERATIVE FINDINGS: The spike of bone was located posteromedially and was quite long and approximately 10 cm in length. We had to extend the incision to access this. We then reamed the canal up to an 11.5 and then placed a 12 mm diameter AML stem. The fracture was then reduced around the stem and cabled with 2 cables. DESCRIPTION OF THE OPERATION: The patient was identified in the preoperative holding area where her surgical site was marked. She was brought back to the operating room where spinal anesthetic was placed and she was then moved on to the operating room table. All bony prominences were padded. Perioperative antibiotics were administered. She was prepped and draped in normal sterile fashion. Prior to incision, a multidisciplinary timeout was called. All in the room were in agreement. We began by opening up her previous incision as well as extending distally for another 8 cm and proximally for another 2 cm. I dissected down through subcutaneous tissues to the level of fascia. The suture material from her previous surgery yesterday was removed and discarded. Fascia was incised in line with the incision. Charnley bow was placed. We released the gluteal sling to access the posterior aspect of the femur. The fracture was easily identified. I was then able to remove the femoral component and femoral head. This was done without difficulty. We then explored the fracture. It was a long posteromedial spike approximately 10 cm in length. I was able to palpate the distal aspect of the fracture. We then began reaming the femur. We went up to a size 11.5 reamer, at which time we had a nice cortical chatter. I therefore elected to use a size 12 stem. A curette was used to remove some lateral bone adjacent to the greater trochanter. We then took an x-ray showing the 11.5 mm reamer within the canal. We had a nice fit and fill. We therefore opened up the 8 inch long 12 mm diameter solution AML stem. This was then placed in approximately 15 degrees of femoral neck anteversion and tapped down into position. Fluoroscopy was used to check our length. The prosthesis proximally was slightly engaging the greater trochanter so I tapped it down another 5 mm. We then under fluoroscopy had excellent fit of the prosthesis within the canal. I then placed a +1.5 mm head and reduced the hip. The fluoroscopy was then brought in and we checked her leg lengths, which were a couple millimeters short. I therefore upsized her to a +5 head. We now had excellent leg length. I likely increased her offset by a millimeter or 2, but accepted this in order to obtain better stability. I then placed a Cathie clamp on the fracture fragment and used this to pull the fracture back into its anatomic position. The neck fragment was a little long, so I osteotomized about 3-4 mm off the neck with a saw. The fracture was then reduced and held the fracture with a pointed tenaculum clamp. Fluoroscopy was brought in and confirmed our reduction. We then opened up the cable passer and passed the cables around the femur staying directly on bone. Two cables were placed. Fluoroscopy was used to check the position of our cables which we were very happy with. I then tightened down the cables first distally and then proximally. The proximal cable was tensioned to 45 then crimped, then the distal cables tensioned to 45 and crimped. Excess cable was cut and removed. At this point, we rechecked her leg lengths, which I was happy with. We checked our stability exam, which showed to have excellent stability, internally rotating approximately 55 degrees before levering out of the acetabulum. We therefore elected to use the +5 head. The hip was dislocated and the trunnion was cleaned and dried. We then placed a +5 ceramic head and gently impacted on the trunnion, then atraumatically reduced the hip. At this point, the wound was irrigated out with copious amounts of sterile Betadine solution. We then ensured meticulous hemostasis. The posterior capsule was closed through bone tunnel in the posterior aspect of the greater trochanter with #2 Vicryl. The piriformis was sutured back to the gluteus minimus tendon. 0 Vicryl pop-offs were used to suture the quadratus femoris back on to the femur. A split in the vastus fascia was closed with 0 Vicryl sutures. Gluteal sling was not repaired due to inadequate tissue and proximity to the sciatic nerve. We then again irrigated out the wound one more time with copious normal saline and then ran the fascia using a looped #1 PDS. Subcutaneous layer was closed with a #1 PDS. The skin was closed with running 2-0 Vicryl. Michelle were used for the skin. A Prevena wound VAC was placed. An Enrique wrap was then placed from the MTP joints all the way up to her groin to allow for compression. The patient's sedation was then lifted and she was carefully transferred on to the hospital bed. A knee immobilizer was placed. She was then transferred to recovery room in stable condition. POSTOPERATIVE COURSE: The patient will be readmitted to the floor. An H and H is pending at the time of this dictation. She may need a blood transfusion postoperatively. She will be in the knee immobilizer for the next 6 weeks for hip precautions. Weightbearing as tolerated. We will hold her Xarelto until Monday morning to decrease the risk for postoperative hematoma. I attest to the content of the Intraoperative Record and any orders documented therein. Any exceptions are noted below. ALESHA
[2021-02-06] MEDS ORDERED: TRANEXAMIC ACID / 0.7% NACL 1,000 MG/100 ML BAG IV SCH (01:48)
[2021-02-06] MEDS: KETOROLAC TROMETHAMINE 15 MG/ML VIAL IV SCH ×2 (02:05→08:00)
[2021-02-06] MEDS: ACETAMINOPHEN 500 MG TAB PO SCH ×3 (05:32→21:00)
[2021-02-06 05:57] LABS: Hematocrit (blood only) 29.9 % (37-47); Hemoglobin 10.2 g/dL (12.0-16.0); Immature Granulocytes # (auto) 0.03 K/uL (0.00-0.02); Immature Granulocytes % (auto) 0.2 %; Lymphocytes # (auto) 0.96 K/uL (1.2-3.4); Mean Corpuscular Hemoglobin 31.4 pg (25-34); Mean Corpuscular Hgb Conc 34.1 g/dL (32-36); Mean Platelet Volume 9.3 fL (7.4-10.4); Monocytes # (auto) 1.58 K/uL (0.11-0.59); Monocytes % (auto) 11.4 %; Neutrophils # (auto) 11.23 K/uL (1.4-6.5); Neutrophils % (auto) 81.4 %; Platelet Count 177 K/uL (130-400); RDW Coefficient of Variation 13.2 % (11.5-14.5); RDW Standard Deviation 44.4 fL (36.4-46.3); Red Blood Count 3.25 M/uL (4.2-5.4)
[2021-02-06 06:25] LABS: BUN Creatinine Ratio 18.4 (10-20); Calcium 8.1 mg/dl (8.5-10.1); Creatinine Clr Calc Pharmacy 54.8 ml/min; Est GFR (African American) 82.5; Est GFR (Non-African American) 71.2
[2021-02-06] MEDS: HYDROXYCHLOROQUINE SULFATE 200 MG TAB PO SCH (07:55)
[2021-02-06] MEDS: predniSONE 5 MG TAB PO SCH (07:57)
[2021-02-06] MEDS: MULTIVITAMIN TAB PO SCH (07:59)
[2021-02-06] MEDS: allopurinoL 300 MG TAB PO SCH (07:59)
[2021-02-06] MEDS: Scopolamine CHECK PATCH PLACEMENT SCH ×3 (08:00→23:48)
[2021-02-06] MEDS ORDERED: dexAMETHasone 4 MG TAB PO SCH (08:00)
[2021-02-06] MEDS: ceFAZolin 2000MG 2,000 MG/15 ML SYR IV SCH (08:06)
[2021-02-06] MEDS: DOCUSATE SODIUM 100 MG CAP PO SCH ×2 (08:06→20:59)
[2021-02-06] MEDS ORDERED: MULTIVITAMIN TAB PO SCH (09:00)
--- NOTE | 2021-02-06 10:08 | Orthopedic Progress Note ---
Date of Service February 06, 2021 Assessment & Plan (1) Periprosthetic fracture of femur following total replacement of hip: D/C Joshi Hep lock IV fluids PT/OT daily WBAT with posterior hip precautions D/C toradol due to fracture Start Xarelto tomorrow AM for DVT prophylaxis. Continue foot pumps, although may switch to SCD's if better tolerated by patient Discharge Monday or Monday, either to rehab or home depending on how she does with physical therapy (2) Lupus: (3) Osteoporosis: Admission and Anticipated Discharge Date Admission Date: February 05, 2021 Subjective Patient did well overnight. Pain well controlled. Tolerating oral diet. Had some difficulty sleeping last night on her back. Physical Exam Physical Exam: A&O x 3. conversational. Dressing c/d/i. Distally NVI. Minimal output in wound vac. Results & Data ([facility]) Vital Signs (Past 12 Hours) Vital Signs Temp Pulse Resp BP BP Pulse Ox 02/06/21 06:57 36.9 C 78 18 131/76 95 02/06/21 03:57 36.7 C 77 16 117/74 95 02/05/21 23:05 36.6 C 80 18 110/70 98 02/05/21 23:04 36.6 C 91 H 20 108/65 95 02/05/21 22:07 36.4 C L 96 H 16 117/70 96 Laboratory Results Hemoglobin 10 this AM. Diagnostic Findings X-rays show HW in good position
[2021-02-06] MEDS: SENNA 8.6 MG TAB PO SCH (20:58)
[2021-02-07] MEDS: ACETAMINOPHEN 500 MG TAB PO SCH ×3 (05:35→21:04)
[2021-02-07] MEDS ORDERED: ALENDRONATE SODIUM 70 MG TAB PO SCH (06:30)
[2021-02-07] MEDS: MULTIVITAMIN TAB PO SCH (08:01)
[2021-02-07] MEDS: predniSONE 5 MG TAB PO SCH (08:01)
[2021-02-07] MEDS: HYDROXYCHLOROQUINE SULFATE 200 MG TAB PO SCH (08:01)
[2021-02-07] MEDS: RIVAROXABAN 10 MG TABLET PO SCH (08:02)
[2021-02-07] MEDS: allopurinoL 300 MG TAB PO SCH (08:02)
[2021-02-07] MEDS: DOCUSATE SODIUM 100 MG CAP PO SCH ×2 (08:05→20:43)
--- NOTE | 2021-02-07 10:56 | Orthopedic Progress Note ---
Date of Service February 07, 2021 Assessment & Plan (1) Periprosthetic fracture of femur following total replacement of hip: Continue pain control with tylenol 1st line, tramadol 2nd line as needed. PT/OT daily WBAT with posterior hip precautions Xarelto, TEDs and mechanicals for DVT prophylaxis. Will keep in hospital one more day due to confusion yesterday. Plan on discharge home tomorrow, assuming next 24 hours are uneventful (2) Lupus: (3) Osteoporosis: Admission and Anticipated Discharge Date Admission Date: February 05, 2021 Subjective Did much better with PT this morning. Ambulated around the perimeter of the floor. Pain well controlled with Tylenol and Tramadol. Got a little confused yesterday however. Physical Exam Physical Exam: A&O x 3. answers all questions appropriately. CASSY wrap removed and replaced with ARTHUR stocking. Wound vac functioning appropriately with minimal output. Moderate swelling around wound appropriate for this stage post-operatively. Distally NVI. Results & Data ([facility]) Vital Signs (Past 12 Hours) Vital Signs Temp Pulse Resp BP BP Pulse Ox 02/07/21 06:17 36.9 C 68 18 121/66 94 02/07/21 00:38 36.8 C 96 H 20 147/83 H 97
[2021-02-07] MEDS ORDERED: traMADol HCL 50 MG TABLET PO PRN (11:44)
[2021-02-07] MEDS: SENNA 8.6 MG TAB PO SCH (20:43)
[2021-02-08] MEDS: ACETAMINOPHEN 500 MG TAB PO SCH (05:24)
[2021-02-08] MEDS: DOCUSATE SODIUM 100 MG CAP PO SCH (07:49)
[2021-02-08] MEDS: MULTIVITAMIN TAB PO SCH (08:58)
[2021-02-08] MEDS: HYDROXYCHLOROQUINE SULFATE 200 MG TAB PO SCH (08:58)
[2021-02-08] MEDS: RIVAROXABAN 10 MG TABLET PO SCH (08:58)
[2021-02-08] MEDS: predniSONE 5 MG TAB PO SCH (08:58)
[2021-02-08] MEDS: allopurinoL 300 MG TAB PO SCH (08:58)
--- NOTE | 2021-02-08 09:42 | Orthopedic Progress Note ---
Date of Service February 08, 2021 Assessment & Plan (1) Periprosthetic fracture of femur following total replacement of hip: Continue pain control with tylenol 1st line, tramadol 2nd line as needed. Ice left hip as needed. Continue xeralto and yared hose for DVT prophylaxis. In house ankle pumps. Continue regular diet. PT/OT WBAT L LE with walker, standard hip precautions, use knee immobilizer at all times other than showering (in place of hip abductor brace). Therapy may work on gentle knee motion supervised while following SHPs VS stable. Patients confusion improved. Discussed with Dr Bradshaw. Stable for DC today after AM PT/OT. To home with HHPT. Appointment scheduled to see Dr Bradshaw on Monday02-12-21 at 10am. Patient advised to call the office at [phone] with any questions or concerns. Present on Admission?: Yes (2) Lupus: Present on Admission?: Yes (3) Osteoporosis: see above. on fosomax Present on Admission?: Yes (4) Acute blood loss anemia: Vital signs have been stable. No evidence of hypotension or lightheadedness. (5) Encephalopathy due to metabolic factor or toxin: Improved today. Admission and Anticipated Discharge Date Admission Date: February 05, 2021 Subjective Patient seen this am. Sitting in chair. Finished with breakfast. Says she is ready to go home. No pain at rest. Some discomfort with ambulating. Prefers the tylenol rather than tramadol. No confusion overnight or into today per nurse. Hasnt had AM PT/OT yet. Patient with questions regarding provena and knee immobilizer. Physical Exam Physical Exam: Sitting in chair. Left knee immobilizer around her ankle. Provena intact. B yared hose on. NV intact B LE. 5/5 B EHL, TA, gastroc. Sensation intact to light touch. Palpable DP and PT pulses. Results & Data ([facility]) Vital Signs (Past 12 Hours) Vital Signs Temp Pulse Resp BP Pulse Ox 02/08/21 06:16 36.8 C 75 16 119/68 96 02/07/21 22:22 36.9 C 61 16 124/69 97
--- NOTE | 2021-02-09 16:31 | Discharge Summary ---
Date of Service February 09, 2021 Admission HPI Per Admitting Provider History of Present Illness (including history relevant to procedure): This 80-year-old female presents the clinic today for preoperative history and physical. Patient has had pain in her left hip since April of 2020. She has seen an outside orthopedic surgeon, who has done 2 cortisone shots in her left hip and 2 in her knee. Unfortunately, these have not given her much relief. She has been doing physical therapy for the last 1-1/2 months. Unfortunately, this has not helped her much. She is having difficulty lifting her left leg. She has had a right hip replacement done in the past back in 2006. She says t his feels similar to the way her right hip felt before surgery. Denies any numbness or tingling. She feels like the pain is in the groin and nonradiating. Worse with walking and better with rest. Occasionally feels like her hip is going to give out on her. Review Of Systems: A 14 point review of systems performed is unremarkable except for those things stated in the HPI Past Medical History: Problems: Osteoarthritis of left hip Preop testing Actinic cheilitis Cheilitis Breast cancer Spitting suture Changing skin lesion Actinic keratoses Inflamed seborrheic keratosis History of squamous cell carcinoma Breast ca Arthritis of foot Hand arthritis Gout Hypertension Lupus HX: breast cancer Procedure History Procedure Procedure Date Comments Punch biopsy of skin Shave biopsy and cauterisation of skin 07/20/2020 Reverse shoulder replacement 12/26/2019 Mohs micrographic surgery 12/25/2018 Shave biopsy and cauterization of skin 11/27/2018 - right guevara Anterior colporrhaphy 12/13/2017 Cystourethroscopy 12/13/2017 Cystourethroscopy 05/01/2017 Hysterectomy 05/01/2017 Uterosacral ligament 05/01/2017 Mammogram - screening 09/15/2016 - Amendment; Prior outside mammograms from the [facility] dated 09/02/13, 09/23/2013, 09/03/2014, 09/09/15 became available for review. there has been no significant interval change compared to the recent prior mammograms. There are stable post surgical changes/posttreatment changes in the left breast. Scattered benignappearing calcifications bilaterally. No new suspicious mass, architectural distortion or cluster of suspicious microcalcifications is identified. Advise follow-upp in 1 year for next annual screening mammogram. - Impression: Expected postsurgical changes in the left breast from prior lumpectomy. There is no mammograpic evidence of maligna ncy bilaterally. Prior outside mammograms are currently being requested and if obtained they will be reviewed and compared to the current exam to assess for any more subtle changes. Then an addendum will be paid to this report. Otherwise, a 1 year screening mammogram is recommended. The patient will receive written notification of the results. Bone density scan 09/15/2016 - T-score: -1.5. Excision squamous cell ca of Right lower leg 2014 - 2014 Pap smear for cervical cancer screening 07/29/2015 - Diagnosis: Negative for intraepithelial lesion or malignancy. Lumpectomy of breast left 2013 - 2013 Pap smear for cervical cancer screening 07/08/2014 - diagnosis: negative for intraepithelial lesion or malignancy. Squamous ep ithelial atrophy. Pap smear for cervical cancer screening 07/03/2013 - diagnosis: Negative for intraepithelial lesion or malignancy. Hip replacement right 2010 - 2010 Cataracts, bilateral 2010 - 2010 Allergies and Sensitivities: morphine(Vomiting) scallops(nausea, vomitting & diarrhea) lobster(nausea, vomitting, diarrhea) Social history: Patient was a pack per day smoker but quit 35 years ago. She states she consumes approximately 1 alcoholic beverage per week. She denies illicit drug use Family history: Cancer, diabetes, heart disease, lung disease and stroke Current Home Meds: (Last Updated 01/13 11:43) alendronate (Fosamax 70 mg oral tablet) 70 mg PO q7days allopurinol (allopurinol 300 mg oral tablet) TAKE 1 TABLET BY MOUTH DAILY cholecalciferol (Vitamin D3 2000 intl units oral tablet) 4,000 Int_Unit PO Daily ciprofloxacin (Cipro 500 mg oral tablet) 500 mg PO q12h hydroCHLOROthiazide (hydroCHLOROthiazide 25 mg oral tablet) TAKE 1 TABLET BY MOUTH DAILY hydroxychloroquine (hydroxychloroquine 200 mg oral tablet) TAKE 1 AND 1/2 TABLETS BY MOUTH DAILY lisinopril (lisinopril 5 mg oral tablet) TAKE 1 TABLET BY MOUTH DAILY predniSONE (predniSONE 5 mg oral tablet) TAKE 1 TABLET BY MOUTH DAILY Initial Wt: 01/12 71.0 kg 156 lb Admission Exam Per Admitting Provider Physical Exam: (relevant to the procedure, including heart and lung evaluation) General: Alert and oriented x3 appropriately and hygiene Eyes: Pupils are equal and reactive to light with accommodation. Extraocular movements are intact Throat: Deferred due to COVID-19 precautions Cardiac: Regular rate and rhythm with no murmurs or gallops appreciated Lungs: Clear to auscultation throughout with no wheezing, rales or rhonchi Abdomen: Nonobese, nondistended, nontender with normoactive bowel sounds Extremities: Left hip exam shows the patient's skin to be intact. Distally neurovascularly intact with palpable pulses. Positive Stinchfield test. Range of motion is reasonably well preserved, but is diminished compared with normal. She gets up to 120 degrees of flexion, external rotation to 45 degrees, internal rotation of 15 degrees. Neuro: Cranial nerves II through XII are intact no motor or sensory deficit Skin: Normal appearance no open skin areas or discharge Principal Diagnosis Left hip osteoarthritis; lupus Periprosthetic left femur fracture Discharge Exam Sitting in chair. Left knee immobilizer around her ankle. Provena intact. B chin hose on. NV intact B LE. 5/5 B EHL, TA, gastroc. Sensation intact to light touch. Palpable DP and PT pulses. Discharge Data Allergies Allergy/AdvReac Type Severity Reaction Status Date / Time shellfish derived AdvReac Intermediate Gastrointestinal Verified 02/04/21 10:34 Upset morphine AdvReac Mild n/v Verified 02/04/21 10:34 Procedures Performed Operation Date: 02/04/21 11:55 Actual Procedures p Left Total Hip Arthroplasty(Left) - Jabier Bradshaw MD Operation Date: 02/05/21 07:00 Actual Procedures p ORIF Periprosthetic Fracture Left(Left) - Jabier Bradshaw MD Ordered Studies 02/05/21 17:00 FL fluoroscopy <1hr Routine FL hip LT 1V Routine Hospital Course (1) Periprosthetic fracture of femur following total replacement of hip: Patient has complicated stay in hospital after sustaining a periprosthetic hip fracture the night of her BALJIT. She underwent a second surgery on Monday02/05/21 with new stem placement and cabling of the fractured segment. Patient's HgB and HcT held stable and she did not require a transfusion. She was placed into a knee immobilizer that was not adequate and was therefore placed into a post op hip brace upon discharge. Patient will be discharged home with in home therapy and will follow up at our clinic as previously scheduled in 2 weeks. Continue pain control with tylenol 1st line, tramadol 2nd line as needed. Ice left hip as needed. Continue xeralto and chin hose for DVT prophylaxis. In house ankle pumps. Continue regular diet. PT/OT WBAT L LE with walker, standard hip precautions, use post op hip brace that was applied this AM as instructed until your follow up. Therapy may work on gentle knee motion supervised while following SHPs VS stable. Patients confusion improved. Discussed with Dr Bradshaw. Stable for DC today after AM PT/OT. To home with HHPT. Appointment scheduled to see Dr Bradshaw on Monday02-12-21 at 10am. Patient advised to call the office at [phone] with any questions or concerns. Total Time Total Time Spent Total Time Spent (In Minutes): 30 mins Total Time Includes: Examination of the Patient, Discharge Planning, Medication Reconciliation and Communication With Other Providers Discharge Plan Discharge Items Patient Disposition: Home - Home Health Services Reason For Visit: POST SURGICAL CARE Discharge Diagnosis: Left Hip Osteoarthritis; Aileen-prosthetic hip fracture; Lupus Activity: As commented below Lifting: None Bathing: Keep incision dry Bathing Comment: Keep provena wound vac on and dry; May shower Sexual Activity: Wait until after follow-up appointment Exercise/Sports: Wait until after follow-up appointment Exercise Comment: per physical therapy protocol; follow standard hip precautions Driving/Machine Use: no driving until cleared by surgeon Weightbearing Comment: as tolerated with walker assistance; wear knee immobilizer when walking Non-emergency contact: Surgeon Call non-emergency contact if: you have any medication questions, your pain is not controlled, your temperature is above 101.5, your wound has increased drainage and your wound pain has increased Follow-up/Referrals: Jabier Morgan MD [Primary Care Provider] - Jabier Bradshaw MD [Physician] - 02/12/21 10:00 am Diet: Regular Addtl Attending Provider Instructions: Post-operative Instructions Dear Patient and Family/Friends, Before you are discharged from the hospital, it is important to know what to expect when you get home after surgery. To that end, we have created this sheet of discharge instructions which covers many commonly asked questions. Make sure you go through this sheet in its entirety with your nurse before you are discharged. Please note that we will go over the specifics of your surgery and recovery when you return for your first post-operative visit. Sincerely, Dr. Bradshaw Medication 1. Tramadol 50 mg: take 1-2 tabs by mouth every 4-6 hours as needed for pain. A prescription for 30 tablets will be sent to your pharmacy. 2. Xarelto 10 mg: take 1 tab daily for 30 days post operatively for blood clot prevention. A prescription for this medicine will be sent to your pharmacy. 3. Extra Strength Tylenol 500 mg: take 2 tabs every 8 hours as needed for pain control. Maximum of 3000mg a day. Please purchase. Pain Expect to be in a fair amount of pain after surgery. Remember, our goal is not to eliminate your pain, but to make it tolerable. It is a good idea to stay ahead of your pain by taking the medications you were prescribed once you get home. Typically, the pain starts improving 3-7 days after surgery. You should start weaning off the narcotic pain medication (oxycodone, hydrocodone, hydromorphone, morphine) as soon as your pain improves. Please call our office if your pain is not adequately controlled. Ice Ice your operative site at least 5 times a day for 15-30 minutes at a time. Make sure you have a thin cloth between the ice or cooling unit and your skin to prevent tyler bite. This is especially important if you received a nerve block. Continue icing your operative site for the first 5-7 days after surgery, then as needed. Diet/Nausea/Vomiting Start by drinking clear liquids and eating crackers. If you can tolerate this, then you may resume your normal diet. If you feel nauseated or vomit, take Zofran/ondansetron (if prescribed). Please call our office if you have intractable nausea or vomiting, or, if after hours, you may go to the Emergency Room for help. Constipation Constipation is a common side effect of narcotic pain medication. If you have not had a bowel movement within 2 days after surgery, we recommend purchasing an over the counter laxative such as Milk of Magnesia, Dulcolax, or Miralax from a local pharmacy, and taking it as instructed. Call our clinic if any questions. Braces Hip abuctor brace to be worn at all times other than to shower. Left hip Nerve block The anesthesia team sometimes places a nerve block to help with post-operative pain control. This results in significant numbness and inability to move the extremity. The nerve block usually wears off in 8-12 hours, but sometimes can last up to 24 hours. Please call our office if you are still unable to move your extremity after 24 hours, unless you received a pain pump to take home. Nerve blocks typically wear off quickly, so start taking pain medication as soon as you start feeling soreness near your surgical site. Weight bearing and Range of Motion. Weightbear as tolerated with a walker. Follow standard hip precautions Left leg. Physical therapy Initially you will have home health and after your follow-up with the doctor, discussion of outpatient physical therapy will be had. Wound care and showering Your provena wound vac should remain on at all times until you see the doctor. You may shower. Keep wound vac dry and clean. Chin hose If you were given white stockings, these are to be worn at all times except to shower (on both legs) for the first 2 weeks after surgery. Driving You may not drive while taking narcotic pain medication or while in a cast, splint, sling or brace. You, the patient, need to make the final determination about when you are safe to drive, however, the earliest you may consider driving after surgery is below: Hand/Wrist/Elbow Surgery: 3 days Shoulder Surgery: 2 weeks Hip,/Knee/Ankle Surgery: 4 weeks Fracture repair: 6 weeks Travel Avoid long distance travel (greater than 1 hour) in airplanes and cars for the first 6 weeks after surgery. If you must travel, you need to have a Doppler ultrasound done before you travel to rule out a blood clot in your legs. Follow-up You are scheduled to see Dr Bradshaw on Monday02-12-21 at 10am. When to call the office *[phone]* It is normal to have swelling and bruising in the limb that was operated on. This will improve with time. It is also normal to have fevers for the first 2 days after surgery. Reasons you should call your doctor include: Uncontrolled pain; Nausea, vomiting, or constipation that does not improve with medication; Fevers over 101.5, chills, sweats; Drainage or bleeding from the wound; Foul odor; Spreading areas of redness; Any other concerns Pending Studies at Discharge: No Stand-Alone Forms: My [facility] [email or web address], Smoking Cessation Medications and DC Order Prescriptions: New Xarelto 10 mg Tablet 10 mg PO DAILY 30 Days Qty: 30 RF: 0 acetaminophen 500 mg Tablet 1,000 mg PO Q8 Qty: 60 RF: 0 tramadol 50 mg Tablet 50 mg PO .Q6hrs PRN (Reason: severe pain) Qty: 30 RF: 0 Continued prednisone 5 mg tablet 5 mg PO QAM RF: 0 allopurinol [Zyloprim] 300 mg tablet 300 mg PO QAM RF: 0 hydrochlorothiazide 25 mg tablet 25 mg PO QAM RF: 0 hydroxychloroquine [Plaquenil] 200 mg tablet 300 mg PO QAM RF: 0 lisinopril [Zestril] 5 mg tablet 5 mg PO QAM RF: 0 alendronate [Fosamax] 70 mg Tablet 70 mg PO WK RF: 0 Soothe Lubricant 0.6-0.6 % Dropperette ophthalmic (eye) HS RF: 0 Discharge Orders: Discharge Order (Routine); Ordered 02/08/21 Ordered By: Juli Rocha/Other Patient Handouts: DVT Post Op Prevention, Hip Precautions, 5 Steps for Eating Healthier, Hip Replace After Hospital, A1C Admission Data Admit Date/Time: 02/05/21 14:22 Attending Provider: Jabier Bradshaw Admit Provider: Jabier Bradshaw Primary Care Provider: Jabier Morgan Other Providers: [facility],Home Health Other Interventions: Discharge Summary Assessment (RN) Last Done: 02/08/21 09:51
== END 2021-02-08 11:30 | disposition home health service (06) | DRG 466 ==
LOC: PACUINP 09:55 → ASU 09:55 → 3E 14:57

== ENCOUNTER 2021-02-26 17:28 | Inpatient (IN) ==
[2021-02-26] MEDS ORDERED: KETOROLAC TROMETHAMINE 15 MG/ML VIAL IV ONE (17:39)
--- NOTE | 2021-02-26 17:45 | Emergency Department Note ---
Impression & Plan Left hip pain, Dislocation of left hip ED Provider Note NAME: TEENA BISHOP AGE: 80 SEX: F : 1940 ARRIVES VIA: Ambulance INFORMANT: [Patient][ems] ED PROVIDER(S): [Navneet Hamilton MD] CHIEF COMPLAINT: Hip pain HISTORY OF PRESENT ILLNESS: The patient is a 80-year-old female presents to the ER with left hip pain. The patient states that her left hip was replaced about 3 weeks ago here at our hospital. She tried to walk on the hip the next day and felt something give and suffered a fracture. She then had to have a redo of her replacement. A longer prosthesis was used. The patient states that today, she was getting off the couch about an hour ago when she felt something kind of give in the hip. She had pain initially but no pain now. The patient was afraid to walk on the hip and just did not feel strong. She was brought by ambulance. There has been no cough or cold or chest pain. No fever or chills. She has been in baseline health otherwise. She currently rates her pain as 0. REVIEW OF SYSTEMS: See HPI for pertinent positives and negatives. A total of ten systems were reviewed and were otherwise negative. PMHx/PSHx: See Below SOCIAL HISTORY: See Below. PHYSICAL EXAM: GENERAL: Patient is in no acute distress. HEENT: No acute trauma, normocephalic atraumatic, mucous membranes moist, no nasal congestion, no scleral icterus. NECK: No stridor, no adenopathy, no meningismus, trachea is midline. LUNGS: Clear to auscultation bilaterally, no wheeze, no rhonchi, breath sounds equal. HEART: Without murmurs gallops or rubs, regular rate and rhythm. ABDOMEN: Soft, nontender, bowel sounds positive, no hernias, no peritonitis. EXTREMITIES: No cyanosis or edema. The patient does have some shortening of her left lower extremity when compared to the right. There is no internal or external rotation. Palpation over the left hip appears to show some superior dislocation to the prosthesis. She is mildly tender to palpate over the lateral left hip. No evidence for neurovascular compromise. NEUROLOGIC: Oriented x 3, no acute motor or sensory deficits, no focal weakness. SKIN: No rash, no jaundice, no diaphoresis. DIFFERENTIAL DIAGNOSIS: Fracture, dislocation, neurovascular compromise, compartment syndrome, soft tissue injury, as well as other pathologies. EMERGENCY DEPARTMENT COURSE/PROCEDURES: Conscious sedation: This procedure was performed by me. Procedural Sedation Indication hip dislocation. Total time: 21 minutes. Written consent was obtained after the risks and benefits were explained to the patient, including, but not limited to aspiration, allergic reaction, breathing difficulties, cardiac complications, vomiting, pain, event recall, bleeding, and/or infection. Pre-sedation examination and paperwork completed. The patient was on nasal cannula oxygen prior to the procedure. Continuous end tidal CO2 monitoring, pulse oximetry, and cardiac monitoring were utilized. Suction, airway equipment, medications, respiratory equipment, and appropriate personnel were prepared prior to the initiation of the procedure. A time out was taken. Sedation was achieved utilizing 35 mg of IV ketamine. The patient was also given 35 mg of IV propofol. She required a second 35 mg dose of IV propofol for continued sedation. Unfortunately, the hip could not be reduced. Sedation was discontinued and the monitoring continued. The patient recovered quickly from the effects of the medication without complication or adverse event. MEDICAL DECISION MAKING: The patient presents with left hip discomfort after getting up off the couch. She recently had a left hip replacement performed. Films of the left hip and pelvis show a superior posterior hip dislocation. No bony fracture. Chest film was done, the lungs seemed clear, no CHF or pneumonia. On exam, the patient was in minimal pain unless her left hip was moved. There was no evidence for left lower extremity neurovascular compromise. No other injuries found by my exam. The patient was given IV Zofran for nausea, she received IV Toradol for pain. I talked to the patient about putting the hip back in place. She did consent to conscious sedation. The appropriate paperwork was signed. The procedure was performed, however, the hip could not be reduced. I performed the sedation, orthopedics, Dr. Estrada, performed the reduction. Basic laboratory work has been ordered. The patient is going to need hospitalization. She will be taken to the OR in the morning for orthopedic intervention and reduction of her left hip. I spoke to the patient and her , I talked with orthopedics. I spoke with case management. The on-call hospitalist was consulted. Past Med/Surg History Medical History Dry eye syndrome FOLLOWS WITH EYE DOCTOR ANNUALLY USES LUBRICANT Q HS Hx of breast cancer LEFT (SURGERY AND RADIATION TX 8 YRS AGO) NO CURRENT ISSUES Hx of gout Hypertension Lumbar disc disease Lupus On prednisone/plaquenil- follows with PCP for management - controlled and stable Osteoarthritis Surgical History H/O bladder repair surgery H/O shoulder replacement RT H/O: hysterectomy History of cataract surgery RT/LEFT History of colonoscopy History of esophagogastroduodenoscopy (EGD) History of lumpectomy of left breast History of total right hip replacement [place] teeth removed Family History Mother Family history of diabetes mellitus Grandmother No problems noted. Grandmother (Maternal) Family history of diabetes mellitus Other Coronary heart disease No family history of adverse response to anesthesia Social History Smoking Status: Former smoker Second Hand Exposure: Yes ( A CHILD); Hx Alcohol Use: Yes Alcohol type: wine and hard liquor Hx Substance Use: No Preferred Language: Belarusian Communication Ability: Effective Visual Impairment: No Limitations Hearing Ability: Normal Tower Control Operator Required: No Beliefs That Will Affect Care: None marital status: Current Living Situation: Spouse Current Living Situation Comment: LIVES AT [facility]. LIVING current occupational status: retired Feels Safe at Home: Yes Assistive Devices: Brace/Splint/Immobilizer and Walker Allergies Allergies Allergy/AdvReac Type Severity Reaction Status Date / Time adhesive tape Allergy ITCHING Unverified 02/26/21 20:06 shellfish derived AdvReac Intermediate Gastrointestinal Verified 02/26/21 20:04 Upset morphine AdvReac Mild n/v Verified 02/26/21 20:05 Home Meds Home Medications Medication Instructions Recorded Confirmed allopurinol [Zyloprim] 300 mg PO QAM 02/16/19 02/26/21 hydrochlorothiazide 25 mg PO QAM 02/16/19 02/26/21 hydroxychloroquine [Plaquenil] 300 mg PO QAM 02/16/19 02/26/21 lisinopril [Zestril] 5 mg PO QAM 02/16/19 02/26/21 prednisone 5 mg PO QAM 02/16/19 02/26/21 Soothe Lubricant 1 drp OPHTHALMIC (EYE) HS 01/07/21 02/26/21 alendronate [Fosamax] 70 mg PO WK 01/07/21 02/26/21 calcium carbonate [Tums 500] 1,000 mg PO DAILY 02/26/21 02/26/21 cholecalciferol (vitamin D3) 100 mcg PO DAILY 02/26/21 02/26/21 [Vitamin D3] Previous Rx's Medication Instructions Recorded acetaminophen 1,000 mg PO Q8 #60 tab MDD 3000MG 02/08/21 rivaroxaban [Xarelto] 10 mg PO DAILY 30 Days #30 tab 02/08/21 tramadol 50 mg PO .Q6hrs PRN #30 tab 02/08/21 Results & Data (ED) Vital Signs Vital Signs - 24 hr 02/26/21 17:28 02/26/21 17:45 02/26/21 19:33 Temperature 36.7 C Temperature Source Oral Pulse Rate 86 Pulse Rate [Apical] 85 81 Pulse Rhythm [Apical] Regular Regular Pulse Strength [Apical] Normal Normal Respiratory Rate 20 22 18 Respiratory Effort / Characteristics Non-Labored Non-Labored Spontaneous Non-Labored Spontaneous Respiratory Depth Normal Normal Normal Respiratory Pattern Regular Blood Pressure 140/79 Blood Pressure [Left Arm] 143/84 H 146/69 H Blood Pressure Mean 99 Blood Pressure Mean [Left Arm] 103 94 Blood Pressure Position [Left Arm] Semi-fowlers Lying Pulse Oximetry 100 100 95 Oxygen Delivery Method Room Air Room Air Room Air Oxygen Flow Rate Sepsis Recent Fever Within 48 Hours No Sepsis New/Unexplained Change in Mental Status N/A Sepsis Action Taken by Nursing No Action Required 02/26/21 20:11 Temperature Temperature Source Pulse Rate Pulse Rate [Apical] Pulse Rhythm [Apical] Pulse Strength [Apical] Respiratory Rate Respiratory Effort / Characteristics Respiratory Depth Respiratory Pattern Blood Pressure Blood Pressure [Left Arm] Blood Pressure Mean Blood Pressure Mean [Left Arm] Blood Pressure Position [Left Arm] Pulse Oximetry 100 Oxygen Delivery Method Nasal Cannula Oxygen Flow Rate 4 Sepsis Recent Fever Within 48 Hours Sepsis New/Unexplained Change in Mental Status Sepsis Action Taken by Retirement Medications Current Medication List: was personally reviewed by me Laboratory Data Lab Results 02/26/21 02/26/21 Range/Units 18:11 18:11 COVID-19 Eval Order [facility]FluRsv at [facility] SARS-CoV-2 (PCR) NEGATIVE (Negative) Influenza Type A (PCR) Negative (Neg) Influenza Type B (PCR) Negative (Neg) RSV (RT-PCR) Negative (Neg) Administered Medications Discontinued Medications Ketorolac Tromethamine (Ketorolac Tromethamine 15 Mg/Ml Vial) 10 mg IV NOW ONE Stop: 02/26/21 17:40 Last Admin: 02/26/21 18:06 Dose: 10 mg Documented by: [id number] Ondansetron HCl (Ondansetron Inj 2 Mg/Ml 2 Ml Vial) 4 mg IV NOW STA Stop: 02/26/21 19:02 Last Admin: 02/26/21 20:23 Dose: 4 mg Documented by: [id number] Imaging Data Radiologist's Impression: Hip/Pelvis X-Ray 02/26/21 17:39 XR hip LT 2V w pelvis CLINICAL HISTORY: pain, poss dislocation COMPARISON: Left femur radiographs February 19, 2021. FINDINGS: Note is made of a superior posterior dislocation of the femoral component of the left hip arthroplasty with respect to the acetabular cup. Cerclage wires fixate the previously described subtrochanteric fracture of the left femur. Interval healing is noted. Alignment appears anatomic. No acute fracture is present. Right hip arthroplasty is noted. IMPRESSION: Superior posterior dislocation of the femoral component of the left hip arthroplasty with respect to the acetabular cup. No acute fracture. ACT 112: Negative or not required by law. Electronically signed by: Bi Magana M.D. 02/26/2021 6:45 PM Chest X-Ray 02/26/21 18:33 XR chest 1V portable CLINICAL HISTORY: hip pain, dislocation COMPARISON STUDY: Chest radiograph December 09, 2019. FINDINGS: Right shoulder arthroplasty and left breast surgical clips are incidentally noted. There is no pneumothorax or pleural effusion. There is no consolidation. Pulmonary vascularity is normal. Apparent mediastinal widening and enlargement of the cardiac silhouette is accentuated on this supine exam. Allowing for differences in technique, the appearance of the chest is unchanged. IMPRESSION: No acute cardiopulmonary findings. ACT 112: Negative or not required by law. Electronically signed by: Bi Magana M.D. 02/26/2021 6:46 PM Discharge Plan Visit Data Chief Complaint: Hip Pain Stated Complaint: HIP PAIN ED Provider: Navneet Hamilton Discharge Problem: Left hip pain, Dislocation of left hip Patient Disposition: Admitted As Inpatient Condition: Good Forms Stand Alone Forms: My [facility] Prescriptions Prescriptions: No Action prednisone 5 mg tablet 5 mg PO QAM RF: 0 allopurinol [Zyloprim] 300 mg tablet 300 mg PO QAM RF: 0 hydrochlorothiazide 25 mg tablet 25 mg PO QAM RF: 0 hydroxychloroquine [Plaquenil] 200 mg tablet 300 mg PO QAM RF: 0 lisinopril [Zestril] 5 mg tablet 5 mg PO QAM RF: 0 alendronate [Fosamax] 70 mg Tablet 70 mg PO WK RF: 0 Soothe Lubricant 0.6-0.6 % Dropperette 1 drp ophthalmic (eye) HS RF: 0 Xarelto 10 mg Tablet 10 mg PO DAILY 30 Days Qty: 30 RF: 0 acetaminophen 500 mg Tablet 1,000 mg PO Q8 MDD 3000MG Qty: 60 RF: 0 tramadol 50 mg Tablet 50 mg PO .Q6hrs PRN (Reason: severe pain) Qty: 30 RF: 0 cholecalciferol (vitamin D3) [Vitamin D3] 50 mcg (2,000 unit) Tablet 100 mcg PO DAILY RF: 0 calcium carbonate [Tums 500] 500 mg calcium (1,250 mg) Tablet,Chewable 1,000 mg PO DAILY RF: 0 Referrals Referrals: [facility] [Other]
--- NOTE | 2021-02-26 18:46 | XRay Report ---
XR hip LT 2V w pelvis CLINICAL HISTORY: pain, poss dislocation COMPARISON: Left femur radiographs February 19, 2021. FINDINGS: Note is made of a superior posterior dislocation of the femoral component of the left hip arthroplasty with respect to the acetabular cup. Cerclage wires fixate the previously described subtr ochanteric fracture of the left femur. Interval healing is noted. Alignment appears anatomic. No acut e fracture is present. Right hip arthroplasty is noted. IMPRESSION: Superior posterior dislocation of the femoral component of the left hip arthroplasty with respect to the acetabular cup. No acute fracture. ACT 112: Negative or not required by law. Electronically signed by: Bi Magana M.D. 02/26/2021 6:45 PM
--- NOTE | 2021-02-26 18:48 | XRay Report ---
XR chest 1V portable CLINICAL HISTORY: hip pain, dislocation COMPARISON STUDY: Chest radiograph December 09, 2019. FINDINGS: Right shoulder arthroplasty and left breast surgical clips are incidentally noted. There is no pneumothorax or pleural effusion. There is no consolidation. Pulmonary vascularity is normal. Tomy arent mediastinal widening and enlargement of the cardiac silhouette is accentuated on this supine ex am. Allowing for differences in technique, the appearance of the chest is unchanged. IMPRESSION: No acute cardiopulmonary findings. ACT 112: Negative or not required by law. Electronically signed by: Bi Magana M.D. 02/26/2021 6:46 PM
[2021-02-26] MEDS ORDERED: PROPOFOL IV EMULSION 10 MG/ML 20 ML VIAL IV STA (19:00)
[2021-02-26] MEDS ORDERED: KETAMINE HCL INJ 50 MG/ML 10 ML VIAL IV STA (19:00)
[2021-02-26 19:01] LABS: Influenza A virus by PCR Negative (Neg); Influenza B virus by PCR Negative (Neg); RSV by PCR Negative (Neg); SARS CoV2 RNA(COVID-19) InHosp NEGATIVE (Negative)
[2021-02-26] MEDS ORDERED: ONDANSETRON INJ 2 MG/ML 2 ML VIAL IV STA (19:01)
--- NOTE | 2021-02-26 19:06 | Pre Anesthesia Assessment ---
Date of Service February 26, 2021 Pre Sedation Assessment Vital Signs Temp Pulse Pulse Resp BP BP Pulse Ox 02/26/21 20:11 100 02/26/21 19:33 81 18 146/69 H 95 02/26/21 17:45 85 22 143/84 H 100 02/26/21 17:28 36.7 C 86 20 140/79 100 Cardiovascular RRR, no murmur, no edema Respiratory normal respiratory effort, lungs clear to auscultation Pre-Sedation Airway Assessment Smoking Status: Former smoker Hx Sleep Apnea: No Hx Difficult Intubation: No Short, Thick Neck: No Thyromental Distance: > or= 3.5 Finger Breadths Oral Cavity: + WNL Mallampati Class: II ASA: ASA2 NPO Status Date of Last Intake of Fluids: 02/26/21 Time of Last Intake of Fluids: 12:00 Date of Last Intake of Solid Food: 02/26/21 Time of Last Intake of Solid Foods: 12:00 Procedure Planning Contraindications for Sedation: none Notes The planned sedation has been discussed with the patient. Informed Consent was obtained. I have identified the patient, determined the appropriateness of sedation and have assessed the patient immediately prior to the procedure. All medicine(s) and interventions are by my order.
--- NOTE | 2021-02-26 20:23 | Orthopedic Consultation ---
Date of Service February 26, 2021 Assessment & Plan (1) Dislocation of hip prosthesis: Discussed with primary surgeon, Dr. Sloan. He is aware of the dislocation cannot be reduced here in the emergency room. She remained without neurologic deficit after the reduction attempts. Recommendation was for admission with hospitalist assistance. She is on chronic steroids for her lupus and has other medical comorbidities that need to be well managed for potential revision surgery. She should be n.p.o. at midnight. Her current Xarelto is adequate for VTE prophylaxis for this evening. Please add ARTHUR hose and SCDs for mechanical prophylaxis. Routine pain control. Plan for attempted closed reduction under full anesthesia tomorrow in the operating room, with potential for revision. Dr. Sloan will assume care in the morning. I can be reached tonight for any further questions. Plan was explained to Richa and her estefania in the emergency room. They are in asked appropriate questions, demonstrated good understanding, and are in agreement to proceed with admission for further care. History of Present Illness Reason for Consultation: left hip periprosthetic dislocation Requesting Physician: . 80 yo F with history of January 2021 elective BALJIT, complicated by fall and Vanc B2 periprosthetic fracture treated with ORIF and long stem revision, presents to ED tonight with dislocation. The patient states that she was getting off the couch about an hour ago when she felt something kind of give in the hip. She was wear ing her hip brace at the time. She reports minimal pain and is surprised it is dislocated. Denies numbness in the LLE. Unable to walk. Allergies Allergy/AdvReac Type Severity Reaction Status Date / Time adhesive tape Allergy ITCHING Unverified 02/26/21 20:06 shellfish derived AdvReac Intermediate Gastrointestinal Verified 02/26/21 20:04 Upset morphine AdvReac Mild n/v Verified 02/26/21 20:05 Home Medications Medication Instructions Recorded Confirmed Type allopurinol [Zyloprim] 300 mg PO QAM 02/16/19 02/26/21 History hydrochlorothiazide 25 mg PO QAM 02/16/19 02/26/21 History hydroxychloroquine [Plaquenil] 300 mg PO QAM 02/16/19 02/26/21 History lisinopril [Zestril] 5 mg PO QAM 02/16/19 02/26/21 History prednisone 5 mg PO QAM 02/16/19 02/26/21 History Soothe Lubricant 1 drp OPHTHALMIC (EYE) HS 01/07/21 02/26/21 History alendronate [Fosamax] 70 mg PO WK 01/07/21 02/26/21 History acetaminophen 1,000 mg PO Q8 #60 tab MDD 3000MG 02/08/21 02/26/21 Rx rivaroxaban [Xarelto] 10 mg PO DAILY 30 Days #30 tab 02/08/21 02/26/21 Rx tramadol 50 mg PO .Q6hrs PRN #30 tab 02/08/21 02/26/21 Rx calcium carbonate [Tums 500] 1,000 mg PO DAILY 02/26/21 02/26/21 History cholecalciferol (vitamin D3) 100 mcg PO DAILY 02/26/21 02/26/21 History [Vitamin D3] Past Med/Surg History Medical History Dry eye syndrome FOLLOWS WITH EYE DOCTOR ANNUALLY USES LUBRICANT Q HS Hx of breast cancer LEFT (SURGERY AND RADIATION TX 8 YRS AGO) NO CURRENT ISSUES Hx of gout Hypertension Lumbar disc disease Lupus On prednisone/plaquenil- follows with PCP for management - controlled and stable Osteoarthritis Surgical History H/O bladder repair surgery H/O shoulder replacement RT H/O: hysterectomy History of cataract surgery RT/LEFT History of colonoscopy History of esophagogastroduodenoscopy (EGD) History of lumpectomy of left breast History of total right hip replacement [place] teeth removed Family History Mother Family history of diabetes mellitus Grandmother No problems noted. Grandmother (Maternal) Family history of diabetes mellitus Other Coronary heart disease No family history of adverse response to anesthesia Social History Smoking Status: Former smoker Second Hand Exposure: Yes ( A CHILD); Hx Alcohol Use: Yes Alcohol type: wine and hard liquor Hx Substance Use: No Preferred Language: Divehi Communication Ability: Effective Visual Impairment: No Limitations Hearing Ability: Normal Manager Managing Required: No Beliefs That Will Affect Care: None marital status: Current Living Situation: Spouse Current Living Situation Comment: LIVES AT [facility]. LIVING current occupational status: retired Feels Safe at Home: Yes Assistive Devices: Brace/Splint/Immobilizer and Walker Review of Systems All systems reviewed & are unremarkable except as noted in HPI & below. Physical Exam LLE: +DF/PF/EHL. Sensation intact throughout. + quad activity. Shortened extremity without rotational deformity. Constitutional well developed and well nourished; no acute distress and not intoxicated appearing ENMT external ear and nose normal, oropharynx normal Respiratory normal respiratory effort; no respiratory distress Cardiovascular Extremities: normal capillary refill; no edema Skin no rashes, warm and dry Psychiatric A+Ox3, euthymic affect Results & Data Results & Data Laboratory Results . Diagnostic Findings Radiographs reveal posterior hip pp dislocation without obvious pp fracture. Components appear to remain well fixed. Post reduction x-rays demonstrate an obvious failure of reduction attempts. The crosstable lateral showed a posterior dislocation. Another attempted reduction maneuver sequence was performed, but the hip was unable to be reduced by manual reduction under propofol sedation. PG Care Time/CCT Total # of Minutes Spent Total Time Spent with Patient: Total time spent is greater than 50% in coordination of care (as documented) at patient's floor/unit and/or counseling patient: Coding Level of Care Code 39571 Office/OBS Consult Lvl 4 Diagnoses Dislocation of hip prosthesis T84.029A; Z96.649
--- NOTE | 2021-02-26 21:08 | XRay Report ---
XR hip 1V LT w pelvis CLINICAL HISTORY: hip reduction COMPARISON: [Radiograph February 26, 2021 at 6:04 PM. FINDINGS: There is persistent posterior superior dislocation of the femoral component of the left hi p arthroplasty with respect to the acetabular cup. The degree of displacement has slightly decreased. No acute fracture is present. Healing subtrochanteric fracture of the left femur is noted status pos t cerclage wire placement. Right hip arthroplasty is noted. IMPRESSION: Persistent dislocation of the femoral component of the left hip arthroplasty with respect to the acetabular cup. ACT 112: Negative or not required by law. Electronically signed by: Bi Magana M.D. 02/26/2021 9:07 PM
--- NOTE | 2021-02-26 21:12 | Emergency Department Note ---
Post Sedation Assessment Vital Signs Temp Pulse Pulse Resp BP BP Pulse Ox 02/26/21 23:00 83 15 123/79 96 02/26/21 22:30 81 18 126/76 98 02/26/21 22:21 83 14 128/80 94 02/26/21 21:50 76 121/72 96 02/26/21 21:40 73 129/75 98 02/26/21 21:30 78 96 02/26/21 21:28 77 143/82 H 99 02/26/21 21:26 76 97 02/26/21 21:20 72 124/76 100 02/26/21 21:15 78 147/83 H 100 02/26/21 21:10 76 126/79 100 02/26/21 21:06 75 138/79 100 02/26/21 21:01 76 141/80 H 100 02/26/21 21:00 77 100 02/26/21 20:56 74 96 02/26/21 20:55 77 16 141/80 H 96 02/26/21 20:52 100 H 144/114 H 100 02/26/21 20:50 94 H 16 144/114 H 100 02/26/21 20:45 81 11 L 143/84 H 143/84 H 100 02/26/21 20:41 78 142/91 H 99 02/26/21 20:40 79 14 142/91 H 99 02/26/21 20:35 80 10 L 162/94 H 162/94 H 98 02/26/21 20:31 85 146/97 H 100 02/26/21 20:30 77 12 146/77 H 100 02/26/21 20:26 85 142/83 H 100 02/26/21 20:25 77 19 142/83 H 100 02/26/21 20:20 78 100 02/26/21 20:15 80 141/97 H 100 02/26/21 20:11 100 02/26/21 19:33 81 18 146/69 H 95 02/26/21 17:45 85 22 143/84 H 100 02/26/21 17:28 36.7 C 86 20 140/79 100 Post Sedation Plan On clinical assessment, the patient appears to have tolerated the sedation wi thout complications. Patient is recovering as anticipated. Patient will continue to be monitored by nursing and may be discharged when sedation discharge criteria are met per below protocol. Upon Completions of procedure up to 15 minutes continue every 5 minute vital signs and the P.A.R. score; then discharge to a Phase I or Fast Track to Phase II per the following guidelines: * Discharge Patient to appropriate Phase II area if PAR is 8 or greater or return to pre- procedure baseline. The post - procedure orders will be as directed. * If PAR score is less than 8 or not return to pre-procedure baseline then patient will follow Phase I monitoring till PAR is reached for Phase II. The Phase I may be done in procedure room or may call to secure a Phase I area. * If naloxone or flumazenil are used for reversal, hold in Phase I for continued monitoring from when last reversal dose was given for a minimum of 60 minutes or longer pending the nurse and/or physician discretion of patient condition before discharge to Phase II. Please call the Sedation Physician to re-evaluate and complete post-note for discharge to Phase II area. Do NOT discharge from procedure sedation or Phase 1 until post- sedation evaluation note is complete by procedure /sedation MD Sedation Discharge Instructions to be given to the patient at discharge to home. Sedation Data Time Out Team Members Agree on the Following: Correct Patient, Correct Procedure, Correct Site-Side and Allergies Verified Time Out Performed Time: 20:28 Sedation Times Sedation Start Date: 02/26/21 Sedation Start Time: 20:25 Sedation End Date: 02/26/21 Sedation End Time: 20:46 Total Sedation Time: 21 Procedure Times Procedure Start Time:: 20:30 Procedure End Time: 20:45
--- NOTE | 2021-02-26 21:15 | Procedure Note ---
Procedure Note Date of Service February 26, 2021 Left prosthetic hip dislocation reduction maneuvers: Radiographs were reviewed and the patient was evaluated. I explained to the patient and her that hip is indeed dislocated and should be treated with an attempt at relocation without delay. We discussed the risk inherent to attempted closed reduction includes not limited to pain, nerve injury, periprosthetic fracture, component failure, need for revision surgery, failed relocation requiring surgery, and complications related to the sedation anesthesia. They aspirated questions, demonstrated understanding, and wanted to proceed with the closed reduction here in the emergency room under my care. The case was discussed with her primary surgeon, Dr. Sloan, and he was in agreement for an attempted closed reduction here in the ER. Informed consent was obtained and witnessed here in the emergency room. She was turned over to Dr. Navneet Hamilton for sedation. Once adequate sedation was achieved, Dr. Hamilton turned her back over to me for close reduction maneuvers. The pelvis was stabilized by the ER staff while I attempted closed reduction maneuvers. She remained with some muscle tone but relaxed with passive motion to position hip flexion and knee flexion. Maximal internal rotation and hip flexion was attempted with traction pulled in this flexed position. There was a palpable clunk. Repeat x-rays were performed, but on the AP pelvis the the prosthesis was still posteriorly dislocated. Another dose of propofol was provided by the emergency room staff. I attempted relocation maneuvers once again. I also included in isolation maneuver attempt in hyper abduction and internal rotation to unlock the posterior dislocation before bringing in external rotation and traction while oscillating. There is no palpable reduction. An attempted standard reduction maneuvers were performed once again with force, however there is no significant feeling of reduction. Leg lengths were equal after the second attempt. Repeat x-ray showed a failed reduction. At that point, it was felt that maximal sedation had been given and no further attempts at closed reduction here in the emergency room should be tried. Patient was turned over to the emergency room staff for recovery. After recovery, she remained with positive dorsiflexion/plantarflexion/EHL activity with intact light touch sensation throughout her foot. Quad activity remain. Richa was tearful at disappointed but she understood that she would need further treatment for this prosthetic hip dislocation. We discussed the plan for admission with another attempt to close reduction in the operating room and possible revision tomorrow. I will turn her care over Dr. Sloan. Coding
[2021-02-26] MEDS ORDERED: ACETAMINOPHEN 1000 MG/100 ML IV IV STA (21:18)
[2021-02-26 21:37] LABS: Hematocrit (blood only) 35.4 % (37-47); Hemoglobin 11.8 g/dL (12.0-16.0); Mean Corpuscular Hgb Conc 33.3 g/dL (32-36); Mean Corpuscular Volume 95.9 fL (80-100); Mean Platelet Volume 9.4 fL (7.4-10.4); Platelet Count 297 K/uL (130-400); RDW Coefficient of Variation 14.4 % (11.5-14.5); RDW Standard Deviation 50.9 fL (36.4-46.3); Red Blood Count 3.69 M/uL (4.2-5.4)
[2021-02-26 21:44] LABS: Albumin Level 3.8 gm/dl (3.4-5.0); BUN Creatinine Ratio 18.2 (10-20); Calcium 9.9 mg/dl (8.5-10.1); Creatinine Clr Calc Pharmacy 55.9 ml/min; Est GFR (African American) 82.5; Est GFR (Non-African American) 71.2; Potassium 4.2 mmol/L (3.5-5.1)
[2021-02-26 21:47] LABS: Albumin Globulin Ratio 1.3 (0.9-2); Bilirubin,Total 0.4 mg/dl (0.2-1); Total Protein 6.8 gm/dl (6.4-8.2)
[2021-02-26] MEDS ORDERED: HYDROmorphone INJ 0.5 MG/0.5 ML SYR IV STA (23:07)
--- NOTE | 2021-02-26 23:07 | History & Physical Report ---
Date of Service February 26, 2021 Assessment & Plan (1) Dislocation of hip prosthesis: Dislocation of left total hip arthroplasty- Acetaminophen 650 mg p.o. every 6 hours as needed mild pain or fever Alba 5/325, 1 p.o. every 6 hours as needed moderate pain, and 2 p.o. every 6 hours as needed severe pain Dilaudid 0.25 mg IV every 3 hours as needed moderate pain. Dilaudid 0.5 mg IV every 3 hours as needed severe pain. NSS + KCl 20 mEq at 80 mils per hour Consult orthopedic surgery. Holding Xarelto, which she had been on for 30 days post revisional left BALJIT procedure on 02/04/2021 Present on Admission?: Yes (2) Lupus: Resume hydroxychloroquine post procedure Present on Admission?: Yes (3) Hypertension: Hold HCTZ, which is relatively contraindicated with gout, and lisinopril 5 mg daily Present on Admission?: Yes (4) Gout: Resume allopurinol after procedure Hold HCTZ Present on Admission?: Yes History of Present Illness Chief Complaint: The patient presents to the emergency department with complaint of severe left hip pain when she went from sitting to standing earlier this evening. Primary Care Provider: AT [facility] The patient is a 80-year-old female with a past medical history including metabolic encephalopathy, acute blood loss anemia, osteoporosis, periprosthetic fracture femur following total hip replacement, colonic diverticular abscess, lupus, hypertension, breast cancer, gout, UTI, and right rotator cuff tear ar thropathy. She underwent a left total hip arthroplasty on 01/13/2021. She presented to emergency department this evening after developing acute pain when going from sitting to standing. X-rays in emergency department showed a dislocation of the femoral component of the left hip arthroplasty with respect to the acetabular cup. This was attempted to be reduced in the emergency department after conscious sedation, but the attempt was unsuccessful. The plan is for the patient to be admitted to the medical service, and orthopedic surgery will take the patient to the OR in the a.m. for relocation of the left BALJIT. Allergies Allergy/AdvReac Type Severity Reaction Status Date / Time adhesive tape Allergy ITCHING Unverified 02/26/21 20:06 shellfish derived AdvReac Intermediate Gastrointestinal Verified 02/26/21 20:04 Upset morphine AdvReac Mild n/v Verified 02/26/21 20:05 Home Medications Medication Instructions Recorded Confirmed Type allopurinol [Zyloprim] 300 mg PO QAM 02/16/19 02/26/21 History hydrochlorothiazide 25 mg PO QAM 02/16/19 02/26/21 History hydroxychloroquine [Plaquenil] 300 mg PO QAM 02/16/19 02/26/21 History lisinopril [Zestril] 5 mg PO QAM 02/16/19 02/26/21 History prednisone 5 mg PO QAM 02/16/19 02/26/21 History Soothe Lubricant 1 drp OPHTHALMIC (EYE) HS 01/07/21 02/26/21 History alendronate [Fosamax] 70 mg PO WK 01/07/21 02/26/21 History acetaminophen 1,000 mg PO Q8 #60 tab MDD 3000MG 02/08/21 02/26/21 Rx rivaroxaban [Xarelto] 10 mg PO DAILY 30 Days #30 tab 02/08/21 02/26/21 Rx tramadol 50 mg PO .Q6hrs PRN #30 tab 02/08/21 02/26/21 Rx calcium carbonate [Tums 500] 1,000 mg PO DAILY 02/26/21 02/26/21 History cholecalciferol (vitamin D3) 100 mcg PO DAILY 02/26/21 02/26/21 History [Vitamin D3] Past Med/Surg History Medical History (Updated 02/27/21 @ 04:32 by Live Rolon MD) Dry eye syndrome FOLLOWS WITH EYE DOCTOR ANNUALLY USES LUBRICANT Q HS Hx of breast cancer LEFT (SURGERY AND RADIATION TX 8 YRS AGO) NO CURRENT ISSUES Hx of gout Hypertension Lumbar disc disease Lupus On prednisone/plaquenil- follows with PCP for management - controlled and stable Osteoarthritis Surgical History H/O bladder repair surgery H/O shoulder replacement RT H/O: hysterectomy History of cataract surgery RT/LEFT History of colonoscopy History of esophagogastroduodenoscopy (EGD) History of lumpectomy of left breast History of total right hip replacement [place] teeth removed Family History Mother Family history of diabetes mellitus Grandmother No problems noted. Grandmother (Maternal) Family history of diabetes mellitus Other Coronary heart disease No family history of adverse response to anesthesia Social History Smoking Status: Former smoker Second Hand Exposure: Yes ( A CHILD); Hx Alcohol Use: Yes Alcohol type: wine and hard liquor Hx Substance Use: No Preferred Language: Serbian Communication Ability: Effective Visual Impairment: No Limitations Hearing Ability: Normal Hydro Sprayer Operator Required: No Beliefs That Will Affect Care: Latter-Day Latter-Day Beliefs: rastafarian marital status: Current Living Situation: Alone Current Living Situation Comment: LIVES AT [facility]. LIVING current occupational status: retired Other Information That Helps Us Care for You: No Feels Safe at Home: Yes Safety Concerns: Feels Safe At This Time Assistive Devices: Walker Review of Systems Review of Systems: The patient denies chest pain, palpitations, shortness of breath, dyspnea on exertion, cough, sore throat, fevers, chills, sweats, weight change, fatigue, nausea, vomiting, diarrhea , constipation, abdominal pain, pelvic pain, blood in urine or stool, dysuria, urinary frequency or urgency, lightheadedness, dizziness, headache, memory loss, loss of consciousness, rash, abnormal bruising or bleeding, focal or generalized weakness, numbness or tingling in arms, generalized arthralgias or myalgias, back or neck pain, or night sweats. The review of systems is otherwise negative other than for that already noted above, and at least 10 systems have been reviewed. Physical Exam Physical Exam: The patient is awake, alert and oriented 3, well developed and well nourished, normocephalic and atraumatic, lying in bed and in mild to moderate distress due to left hip pain HEENT--PERRL, EOMI, mucous membranes and oropharynx dry. Neck--supple. No JVD. No bruits. Thyroid normal, trachea midline, no adenopathy. Heart--normal S1 and S2. No murmurs, rubs or gallops. Lungs--clear bilaterally, no respiratory distress, no accessory muscle use. Abdomen--normal bowel sounds and soft. Nontender. Nondistended. Extremities--no cyanosis or clubbing. No edema. Dermatologic--normal skin turgor, normal color, no abnormal lymph nodes, no rash. Neurologic--cranial nerves II through XII grossly intact. Rheumatologic--limited exam due to pain Psychiatric--normal affect. Results & Data Results & Data ([facility]) Vital Signs (Past 12 Hours) Vital Signs Temp Pulse Pulse Resp BP BP Pulse Ox 02/26/21 21:40 73 129/75 98 02/26/21 21:30 78 96 02/26/21 21:28 77 143/82 H 99 02/26/21 21:26 76 97 02/26/21 21:20 72 124/76 100 02/26/21 21:15 78 147/83 H 100 02/26/21 21:10 76 126/79 100 02/26/21 21:06 75 138/79 100 02/26/21 21:01 76 141/80 H 100 02/26/21 21:00 77 100 02/26/21 20:56 74 96 02/26/21 20:55 77 16 141/80 H 96 02/26/21 20:52 100 H 144/114 H 100 02/26/21 20:50 94 H 16 144/114 H 100 02/26/21 20:45 81 11 L 143/84 H 143/84 H 100 02/26/21 20:41 78 142/91 H 99 02/26/21 20:40 79 14 142/91 H 99 02/26/21 20:35 80 10 L 162/94 H 162/94 H 98 02/26/21 20:31 85 146/97 H 100 02/26/21 20:30 77 12 146/77 H 100 02/26/21 20:26 85 142/83 H 100 02/26/21 20:25 77 19 142/83 H 100 02/26/21 20:20 78 100 02/26/21 20:15 80 141/97 H 100 02/26/21 20:11 100 02/26/21 19:33 81 18 146/69 H 95 02/26/21 17:45 85 22 143/84 H 100 02/26/21 17:28 98.1 F 86 20 140/79 100 Laboratory Results Laboratory Results WBC 8.30 K/uL (4.8-10.8) 02/26/21 18:04 RBC 3.69 M/uL (4.2-5.4) L 02/26/21 18:04 Hgb 11.8 g/dL (12.0-16.0) L 02/26/21 18:04 Hct 35.4 % (37-47) L 02/26/21 18:04 MCV 95.9 fL (80-100) 02/26/21 18:04 MCH 32.0 pg (25-34) 02/26/21 18:04 MCHC 33.3 g/dL (32-36) 02/26/21 18:04 RDW Std Deviation 50.9 fL (36.4-46.3) H 02/26/21 18:04 RDW Coeff of Ivana 14.4 % (11.5-14.5) 02/26/21 18:04 Plt Count 297 K/uL (130-400) 02/26/21 18:04 MPV 9.4 fL (7.4-10.4) 02/26/21 18:04 Sodium 135 mmol/L (136-145) L 02/26/21 18:04 Potassium 4.2 mmol/L (3.5-5.1) 02/26/21 18:04 Chloride 103 mmol/L (98-107) 02/26/21 18:04 Carbon Dioxide 26 mmol/L (21-32) 02/26/21 18:04 Anion Gap 6.0 (3-11) 02/26/21 18:04 BUN 14 mg/dl (7-18) 02/26/21 18:04 Creatinine 0.79 mg/dl (0.6-1.2) 02/26/21 18:04 Est Cr Clr Drug Dosing 55.9 ml/min 02/26/21 18:04 Est GFR ( Amer) 82.5 02/26/21 18:04 Est GFR (Non-Af Amer) 71.2 02/26/21 18:04 BUN/Creatinine Ratio 18.2 (10-20) 02/26/21 18:04 Glucose 89 mg/dl (70-99) 02/26/21 18:04 Calcium 9.9 mg/dl (8.5-10.1) 02/26/21 18:04 Total Bilirubin 0.4 mg/dl (0.2-1) 02/26/21 18:04 AST 21 U/L (15-37) 02/26/21 18:04 ALT 26 U/L (12-78) 02/26/21 18:04 Alkaline Phosphatase 111 U/L (45-117) 02/26/21 18:04 Total Protein 6.8 gm/dl (6.4-8.2) 02/26/21 18:04 Albumin 3.8 gm/dl (3.4-5.0) 02/26/21 18:04 Globulin 3.0 gm/dl (2.5-4.0) 02/26/21 18:04 Albumin/Globulin Ratio 1.3 (0.9-2) 02/26/21 18:04 Urine Color Yellow 02/27/21 00:55 Urine Appearance Cloudy (Clear) A 02/27/21 00:55 Urine pH 7.5 (4.5-7.5) 02/27/21 00:55 Ur Specific [place] 1.014 (1.000-1.030) 02/27/21 00:55 Urine Protein Negative (Negative) 02/27/21 00:55 Urine Glucose (UA) Negative (Negative) 02/27/21 00:55 Urine Ketones Negative (Negative) 02/27/21 00:55 Urine Blood Negative (Negative) 02/27/21 00:55 Urine Nitrite Positive (Negative) A 02/27/21 00:55 Urine Bilirubin Negative (Negative) 02/27/21 00:55 Urine Urobilinogen Negative (Negative) 02/27/21 00:55 Ur Leukocyte Esterase 2+ (Negative) H 02/27/21 00:55 Urine WBC (Auto) >30 /hpf (0-5) H 02/27/21 00:55 Urine RBC (Auto) 0-4 /hpf (0-4) 02/27/21 00:55 U Hyaline Cast (Auto) 10-30 /lpf (0-5) H 02/27/21 00:55 U Epithel Cells (Auto) 5-10 /lpf (0-5) H 02/27/21 00:55 Urine Bacteria (Auto) 1+ (Negative) H 02/27/21 00:55 COVID-19 Eval Order CovFluRsv at [facility] 02/26/21 18:11 SARS-CoV-2 (PCR) NEGATIVE (Negative) 02/26/21 18:11 Influenza Type A (PCR) Negative (Neg) 02/26/21 18:11 Influenza Type B (PCR) Negative (Neg) 02/26/21 18:11 RSV (RT-PCR) Negative (Neg) 02/26/21 18:11 Impressions Chest X-Ray 02/26/21 18:33 XR chest 1V portable CLINICAL HISTORY: hip pain, dislocation COMPARISON STUDY: Chest radiograph December 09, 2019. FINDINGS: Right shoulder arthroplasty and left breast surgical clips are incidentally noted. There is no pneumothorax or pleural effusion. There is no consolidation. Pulmonary vascularity is normal. Apparent mediastinal widening and enlargement of the cardiac silhouette is accentuated on this supine exam. Allowing for differences in technique, the appearance of the chest is unchanged. IMPRESSION: No acute cardiopulmonary findings. ACT 112: Negative or not required by law. Electronically signed by: Bi Magana M.D. 02/26/2021 6:46 PM Hip/Pelvis X-Ray 02/26/21 20:33 XR hip 1V LT w pelvis CLINICAL HISTORY: hip reduction COMPARISON: [Radiograph February 26, 2021 at 6:04 PM. FINDINGS: There is persistent posterior superior dislocation of the femoral component of the left hip arthroplasty with respect to the acetabular cup. The degree of displacement has slightly decreased. No acute fracture is present. Healing subtrochanteric fracture of the left femur is noted status post cerclage wire placement. Right hip arthroplasty is noted. IMPRESSION: Persistent dislocation of the femoral component of the left hip arthroplasty with respect to the acetabular cup. ACT 112: Negative or not required by law. Electronically signed by: Bi Magana M.D. 02/26/2021 9:07 PM Code Status & VTE Plan Code Status Full code VTE Prophylaxis Plan VTE Prophylaxis will be ordered: Yes PG Care Time/CCT Total # of Minutes Spent Total Time Spent with Patient: Total time spent is greater than 50% in coordination of care (as documented) at patient's floor/unit and/or counseling patient: Coding Level of Care Code 58231 Initial Inpt Care Lvl 3 Diagnoses Dislocation of hip prosthesis T84.029A; Z96.649 Lupus M32.9 Hypertension I10 Hypertension type: essential hypertension Gout M10.9 (1) Hypertension Hypertension type: essential hypertension Qualified Code(s): I10 - Essential (primary) hypertension
[2021-02-27 01:09] LABS: Appearance Urine Cloudy (Clear); Bacteria Urine Automated 1+ (Negative); Bilirubin Urine Negative (Negative); Blood Urine Negative (Negative); Color Urine Yellow; Glucose Urine UA Negative (Negative); Ketones Urine Negative (Negative); Leukocyte Esterase Urine 2+ (Negative); Nitrite Urine Positive (Negative); Protein Urine Negative (Negative); RBC Urine Automated 0-4 /hpf (0-4); Specific Gravity Urine 1.014 (1.000-1.030); Urobilinogen Urine Negative (Negative); WBC Urine Automated >30 /hpf (0-5); pH Urine 7.5 (4.5-7.5)
[2021-02-27] MEDS ORDERED: HYDROmorphone INJ 0.5 MG/0.5 ML SYR IV PRN ×2 (01:19)
[2021-02-27] MEDS ORDERED: HYDROCODONE/ACETAMOPHEN 5/325MG TAB PO PRN ×2 (01:19)
[2021-02-27] MEDS ORDERED: ONDANSETRON INJ 2 MG/ML 2 ML VIAL IV PRN ×2 (01:19→09:21)
[2021-02-27] MEDS: NSS + 20MEQ KCL 20 MEQ/1,000 ML BAG IV SCH ×2 (01:49→17:31)
--- NOTE | 2021-02-27 07:53 | Anesthesiology Consultation ---
Date of Service February 27, 2021 History Surgery Operation Date: 02/27/21 08:30 Proposed Procedures p Closed Reduction Left Hip(Left) - Jabier Bradshaw MD Height/Weight Height: 5 ft 3 in Weight: 71.4 kg Allergies Allergy/AdvReac Type Severity Reaction Status Date / Time adhesive tape Allergy ITCHING Unverified 02/26/21 20:06 shellfish derived AdvReac Intermediate Gastrointestinal Verified 02/26/21 20:04 Upset morphine AdvReac Mild n/v Verified 02/26/21 20:05 Medications Home Medications Medication Instructions Recorded Confirmed Last Taken allopurinol [Zyloprim] 300 mg PO QAM 02/16/19 02/26/21 02/04/21 06:30 hydrochlorothiazide 25 mg PO QAM 02/16/19 02/26/21 02/04/21 06:30 hydroxychloroquine [Plaquenil] 300 mg PO QAM 02/16/19 02/26/21 02/04/21 06:30 lisinopril [Zestril] 5 mg PO QAM 02/16/19 02/26/21 02/04/21 06:30 prednisone 5 mg PO QAM 02/16/19 02/26/21 02/04/21 06:30 Soothe Lubricant 1 drp OPHTHALMIC (EYE) HS 01/07/21 02/26/21 02/03/21 22:00 alendronate [Fosamax] 70 mg PO WK 01/07/21 02/26/21 01/31/21 acetaminophen 1,000 mg PO Q8 #60 tab MDD 3000MG 02/08/21 02/26/21 Unknown rivaroxaban [Xarelto] 10 mg PO DAILY 30 Days #30 tab 02/08/21 02/26/21 Unknown tramadol 50 mg PO .Q6hrs PRN #30 tab 02/08/21 02/26/21 Unknown calcium carbonate [Tums 500] 1,000 mg PO DAILY 02/26/21 02/26/21 Unknown cholecalciferol (vitamin D3) 100 mcg PO DAILY 02/26/21 02/26/21 Unknown [Vitamin D3] Active Medications Generic Name Dose Route Start Last Admin Trade Name Freq PRN Reason Stop Dose Admin Potassium Chloride/Sodium Chloride 20 meq in 1,000 mls @ 80 mls/hr 02/27/21 01:45 02/27/21 01:49 Normal Saline W/20 Meq Kcl IV 03/29/21 01:44 80 mls/hr .[id number] CHANDAN Administration NPO Date Last Intake of Fluids: 02/26/21 Past Medical History Medical History Dry eye syndrome FOLLOWS WITH EYE DOCTOR ANNUALLY USES LUBRICANT Q HS Hx of breast cancer LEFT (SURGERY AND RADIATION [place] 8 YRS AGO) NO CURRENT ISSUES Hx of gout Hypertension Lumbar disc disease Lupus On prednisone/plaquenil- follows with PCP for management - controlled and stable Osteoarthritis Past Family History Family History Mother Family history of diabetes mellitus Grandmother No problems noted. Grandmother (Maternal) Family history of diabetes mellitus Other Coronary heart disease No family history of adverse response to anesthesia Past Surgical History Surgical History H/O bladder repair surgery H/O shoulder replacement RT H/O: hysterectomy History of cataract surgery RT/LEFT History of colonoscopy History of esophagogastroduodenoscopy (EGD) History of lumpectomy of left breast History of total right hip replacement [place] teeth removed Social History Smoking Status: Former smoker tobacco type: cigarettes Hx Alcohol Use: Yes Alcohol type: wine and hard liquor alcohol intake frequency: a few times a week Hx Substance Use: No substance use type: does not use Physical Exam Vital Signs Last Vital Signs Temp 36.6 C 02/27/21 07:26 Pulse 74 02/27/21 07:26 Resp 16 02/27/21 07:26 BP 100/58 L 02/27/21 07:26 Pulse Ox 99 02/27/21 07:26 Testing Laboratory Results 02/26/21 18:04 02/26/21 18:04 Urine Color Yellow 02/27/21 00:55 Urine Appearance Cloudy (Clear) A 02/27/21 00:55 Urine pH 7.5 (4.5-7.5) 02/27/21 00:55 Ur Specific [place] 1.014 (1.000-1.030) 02/27/21 00:55 Urine Protein Negative (Negative) 02/27/21 00:55 Urine Glucose (UA) Negative (Negative) 02/27/21 00:55 Urine Ketones Negative (Negative) 02/27/21 00:55 Urine Nitrite Positive (Negative) A 02/27/21 00:55 Ur Leukocyte Esterase 2+ (Negative) H 02/27/21 00:55 Urine WBC (Auto) >30 /hpf (0-5) H 02/27/21 00:55 Urine RBC (Auto) 0-4 /hpf (0-4) 02/27/21 00:55 U Hyaline Cast (Auto) 10-30 /lpf (0-5) H 02/27/21 00:55 U Epithel Cells (Auto) 5-10 /lpf (0-5) H 02/27/21 00:55 Urine Bacteria (Auto) 1+ (Negative) H 02/27/21 00:55 Electrocardiogram Date: 02/26/21 Normal sinus rhythm with sinus arrhythmia Normal ECG When compared with ECG of 12-JAN-2021 15:25, Premature supraventricular complexes are no longer Present
--- NOTE | 2021-02-27 08:25 | Orthopedic Progress Note ---
Date of Service February 27, 2021 Assessment & Plan (1) Dislocation of hip prosthesis: To operating room this morning for closed reduction under general anesthesia. No plan for open reduction today. Discussed with patient that if I am unable to get her hip reduced today (less than 5% chance), then I would do an open reduction tomorrow joanna with possible revision to a constrained liner. Plan to re-admit to floor after surgery and work with physical therapy this afternoon. Assuming I am able to successfully reduce her hip this morning, she could potentially discharge home later this afternoon if she passes physical therapy and is cleared for discharge by internal medicine. Present on Admission?: Yes Admission and Anticipated Discharge Date Admission Date: February 26, 2021 Subjective Patient seen and examined this morning. She reports that when she was getting up from the couch yesterday, she wasn't using her right leg to help her push up, and was rocking her torso forward. She was wearing her brace, but says it moves around some on her abdomen. She says her thinks she was too confident in her hip. Overnight, she did well. Not having much pain at all. No numbness or tingling in her leg. Has been NPO since midnight. Physical Exam Physical Exam: Left hip: mild swelling, faint bruising appears residual from her periprosthetic fracture, not new. NVI Results & Data ([facility]) Vital Signs (Past 12 Hours) Vital Signs Temp Pulse Pulse Resp BP BP BP 02/27/21 07:26 36.6 C 74 16 100/58 L 02/27/21 01:24 36.6 C 80 16 112/71 02/27/21 00:17 82 16 107/60 02/27/21 00:00 82 18 107/60 02/26/21 23:30 83 13 119/72 02/26/21 23:00 83 15 123/79 02/26/21 22:30 81 18 126/76 02/26/21 22:21 83 14 128/80 02/26/21 21:50 76 121/72 02/26/21 21:40 73 129/75 02/26/21 21:30 78 02/26/21 21:28 77 143/82 H 02/26/21 21:26 76 02/26/21 21:20 72 124/76 02/26/21 21:15 78 147/83 H 02/26/21 21:10 76 126/79 02/26/21 21:06 75 138/79 02/26/21 21:01 76 141/80 H 02/26/21 21:00 77 02/26/21 20:56 74 02/26/21 20:55 77 16 141/80 H 02/26/21 20:52 100 H 144/114 H 02/26/21 20:50 94 H 16 144/114 H 02/26/21 20:45 81 11 L 143/84 H 143/84 H 02/26/21 20:41 78 142/91 H 02/26/21 20:40 79 14 142/91 H 02/26/21 20:35 80 10 L 162/94 H 162/94 H 02/26/21 20:31 85 146/97 H 02/26/21 20:30 77 12 146/77 H 02/26/21 20:26 85 142/83 H 02/26/21 20:25 77 19 142/83 H 02/26/21 20:20 78 02/26/21 20:15 80 141/97 H Pulse Ox 02/27/21 07:26 99 02/27/21 01:24 100 02/27/21 00:17 96 02/27/21 00:00 97 02/26/21 23:30 94 02/26/21 23:00 96 02/26/21 22:30 98 02/26/21 22:21 94 02/26/21 21:50 96 02/26/21 21:40 98 02/26/21 21:30 96 02/26/21 21:28 99 02/26/21 21:26 97 02/26/21 21:20 100 02/26/21 21:15 100 02/26/21 21:10 100 02/26/21 21:06 100 02/26/21 21:01 100 02/26/21 21:00 100 02/26/21 20:56 96 02/26/21 20:55 96 02/26/21 20:52 100 02/26/21 20:50 100 02/26/21 20:45 100 02/26/21 20:41 99 02/26/21 20:40 99 02/26/21 20:35 98 02/26/21 20:31 100 02/26/21 20:30 100 02/26/21 20:26 100 02/26/21 20:25 100 02/26/21 20:20 100 02/26/21 20:15 100 Diagnostic Findings Posterior hip dislocation. Cup is in good position. No change in alignment of periprosthetic femur fracture.
--- NOTE | 2021-02-27 08:36 | Hospitalist Progress Note ---
Date of Service February 27, 2021 Assessment & Plan (1) Dislocation of hip prosthesis: Dislocation of left total hip arthroplasty- patient underwent recent LEFT total hip arthroplasty on 01/13/21 followed by a periprosthetic fracture of the femur requiring total hip replacement with Dr. Bradshaw. Patient was seen in the emergency room by Dr. Estrada who attempted several maneuvers to put her hip back into place but this was unsuccessful. She was made n.p.o. and orthopedics was consulted with medicine as the admission team. Patient was taken to the OR this morning with Dr. Reno who did manage to get her hip back into place however is unstable and requires further management. The case was discussed with Dr. Cervantes who also recommended transfer for treatment. Orthopedics team was in contact with Dr. Leyva at [place] who agreed to take the patient under consult if medicine team willing to accept. She remains on complete bedrest for now and Lovenox SQ was started for prophylaxis at this time. Discussed case with Talia, Dr. Peng (orthopedics) and Dr. Astudillo (Internal Medicine) for transfer and they will accept at this time. Anticipate transfer either tonight or early tomorrow pending bed availability Now now: Can have diet but if remains inpatient would make NPO after midnight Pain control: Acetaminophen 650 mg p.o. every 6 hours as needed mild pain or fever [place] 5/325, 1 p.o. every 6 hours as needed moderate pain, and 2 p.o. every 6 hours as needed severe pain Dilaudid 0.25 mg IV every 3 hours as needed moderate pain. Dilaudid 0.5 mg IV every 3 hours as needed severe pain. Placed on Hydrocortisone 50mg IV for stress dose in patient on chronic steroids for her lupus in addition to maintenance Plaquenil and will place on Q8H IV for now Continued IVF UA obtained on admission and appears infect. Hx Ecoli/proteus UTI pansensitive and patient was placed on Rocephin empirically --> Culture pending Holding Xarelto, which she had been on for 30 days post revisional left BALJIT procedure on 02/04/2021 (2) Lupus: Resume hydroxychloroquine post procedure Stress dose steroids for today as above (3) Hypertension: BP hypotensive 100/58 -- stress dose steroids as above for today On NS+20K @ 80cc/hr Holding outpatient HCTZ and Lisinopril -- consider changing HCTZ outpatient vs increasing her lisinopril 5mg vs adding low dose BB given history of gout as well Continue to monitor (4) Gout: Resume allopurinol after procedure Holding HCTZ as above -- consider different agent at d/c Dispo: awaiting bed at [facility] updated by phone today regarding plan and is in agreement. Admission and Anticipated Discharge Date Admission Date: February 26, 2021 Subjective Patient evaluated this afternoon. She had gone down to the OR for a closed reduction with Dr. Bradshaw. Unfortunately this was unsuccessful and decision was made to pursue transfer to [place] for definitive treatment. She states that she is comfortable just has some soreness. Ordered medications seem to be keeping her comfortable and she is not requiring anything further. Discussed transfer to [facility] and that they do anticipate that they may have a bed available this evening however there is a chance that it may not be a possibility until tomorrow if they do not get there anticipated discharge is out. She states that she had just been getting up out of bed and felt her hip come out of place and unfortunately closed reduction resulted in the hip being put back into place however it is unstable at this time. She is to remain on bedrest and she is requesting that if she is allowed to eat that she may be get a peanut butter and jelly sandwich we will ask nursing to provide. She does ask that we update her which then I did proceed to go in contact and update him on plan. He was thankful for this and is in agreement Review of Systems Review of Systems: All systems reviewed & are unremarkable except as noted in HPI & below Physical Exam Physical Exam: The patient is awake, alert and oriented 3, well developed and well nourished, normocephalic and atraumatic, lying in bed and in mild to moderate distress due to left hip pain. ROM was not attempted due to instability of dislocation however patient is NVI and pulses are palpable bilaterally and she has full sensation. She is able to plantar/dorsiflex without issue and calves are non-tender to palpation. HEENT--PERRL, EOMI, mucous membranes and oropharynx dry. Neck--supple. No JVD. No bruits. Thyroid normal, trachea midline, no adenopathy. Heart--normal S1 and S2. No murmurs, rubs or gallops. Lungs--clear bilaterally, no respiratory distress, no accessory muscle use. Abdomen--normal bowel sounds and soft. Nontender. Nondistended. Extremities--no cyanosis or clubbing. No edema. Dermatologic--normal skin turgor, normal color, no abnormal lymph nodes, no rash. Neurologic--cranial nerves II through XII grossly intact. Rheumatologic--limited exam due to pain Psychiatric--normal affect. Results & Data Results & Data ([facility]) Vital Signs (Past 12 Hours) Vital Signs Temp Pulse Pulse Resp BP BP BP 02/27/21 07:26 36.6 C 74 16 100/58 L 02/27/21 01:24 36.6 C 80 16 112/71 02/27/21 00:17 82 16 107/60 02/27/21 00:00 82 18 107/60 02/26/21 23:30 83 13 119/72 02/26/21 23:00 83 15 123/79 02/26/21 22:30 81 18 126/76 02/26/21 22:21 83 14 128/80 02/26/21 21:50 76 121/72 02/26/21 21:40 73 129/75 02/26/21 21:30 78 02/26/21 21:28 77 143/82 H 02/26/21 21:26 76 02/26/21 21:20 72 124/76 02/26/21 21:15 78 147/83 H 02/26/21 21:10 76 126/79 02/26/21 21:06 75 138/79 02/26/21 21:01 76 141/80 H 02/26/21 21:00 77 02/26/21 20:56 74 02/26/21 20:55 77 16 141/80 H 02/26/21 20:52 100 H 144/114 H 02/26/21 20:50 94 H 16 144/114 H 02/26/21 20:45 81 11 L 143/84 H 143/84 H 02/26/21 20:41 78 142/91 H 02/26/21 20:40 79 14 142/91 H 02/26/21 20:35 80 10 L 162/94 H 162/94 H 02/26/21 20:31 85 146/97 H 02/26/21 20:30 77 12 146/77 H 02/26/21 20:26 85 142/83 H 02/26/21 20:25 77 19 142/83 H Pulse Ox 02/27/21 07:26 99 02/27/21 01:24 100 02/27/21 00:17 96 02/27/21 00:00 97 02/26/21 23:30 94 02/26/21 23:00 96 02/26/21 22:30 98 02/26/21 22:21 94 02/26/21 21:50 96 02/26/21 21:40 98 02/26/21 21:30 96 02/26/21 21:28 99 02/26/21 21:26 97 02/26/21 21:20 100 02/26/21 21:15 100 02/26/21 21:10 100 02/26/21 21:06 100 02/26/21 21:01 100 02/26/21 21:00 100 02/26/21 20:56 96 02/26/21 20:55 96 02/26/21 20:52 100 02/26/21 20:50 100 02/26/21 20:45 100 02/26/21 20:41 99 02/26/21 20:40 99 02/26/21 20:35 98 02/26/21 20:31 100 02/26/21 20:30 100 02/26/21 20:26 100 02/26/21 20:25 100 Laboratory Results 02/27/21 02/26/21 02/26/21 Range/Units 00:55 18:11 18:11 WBC (4.8-10.8) K/uL RBC (4.2-5.4) M/uL Hgb (12.0-16.0) g/dL Hct (37-47) % MCV (80-100) fL MCH (25-34) pg MCHC (32-36) g/dL RDW Std Deviation (36.4-46.3) fL RDW Coeff of Ivana (11.5-14.5) % Plt Count (130-400) K/uL MPV (7.4-10.4) fL Sodium (136-145) mmol/L Potassium (3.5-5.1) mmol/L Chloride (98-107) mmol/L Carbon Dioxide (21-32) mmol/L Anion Gap (3-11) BUN (7-18) mg/dl Creatinine (0.6-1.2) mg/dl Est Cr Clr Drug Dosing ml/min Est GFR ( Amer) Est GFR (Non-Af Amer) BUN/Creatinine Ratio (10-20) Glucose (70-99) mg/dl Calcium (8.5-10.1) mg/dl Total Bilirubin (0.2-1) mg/dl AST (15-37) U/L ALT (12-78) U/L Alkaline Phosphatase (45-117) U/L Total Protein (6.4-8.2) gm/dl Albumin (3.4-5.0) gm/dl Globulin (2.5-4.0) gm/dl Albumin/Globulin Ratio (0.9-2) Urine Color Yellow Urine Appearance Cloudy A (Clear) Urine pH 7.5 (4.5-7.5) Ur Specific [place] 1.014 (1.000-1.030) Urine Protein Negative (Negative) Urine Glucose (UA) Negative (Negative) Urine Ketones Negative (Negative) Urine Blood Negative (Negative) Urine Nitrite Positive A (Negative) Urine Bilirubin Negative (Negative) Urine Urobilinogen Negative (Negative) Ur Leukocyte Esterase 2+ H (Negative) Urine WBC (Auto) >30 H (0-5) /hpf Urine RBC (Auto) 0-4 (0-4) /hpf U Hyaline Cast (Auto) 10-30 H (0-5) /lpf U Epithel Cells (Auto) 5-10 H (0-5) /lpf Urine Bacteria (Auto) 1+ H (Negative) COVID-19 Eval Order CovFluRsv at [facility] SARS-CoV-2 (PCR) NEGATIVE (Negative) Influenza Type A (PCR) Negative (Neg) Influenza Type B (PCR) Negative (Neg) RSV (RT-PCR) Negative (Neg) 02/26/21 02/26/21 Range/Units 18:04 18:04 WBC 8.30 (4.8-10.8) K/uL RBC 3.69 L (4.2-5.4) M/uL Hgb 11.8 L (12.0-16.0) g/dL Hct 35.4 L (37-47) % MCV 95.9 (80-100) fL MCH 32.0 (25-34) pg MCHC 33.3 (32-36) g/dL RDW Std Deviation 50.9 H (36.4-46.3) fL RDW Coeff of Ivana 14.4 (11.5-14.5) % Plt Count 297 (130-400) K/uL MPV 9.4 (7.4-10.4) fL Sodium 135 L (136-145) mmol/L Potassium 4.2 (3.5-5.1) mmol/L Chloride 103 (98-107) mmol/L Carbon Dioxide 26 (21-32) mmol/L Anion Gap 6.0 (3-11) BUN 14 (7-18) mg/dl Creatinine 0.79 (0.6-1.2) mg/dl Est Cr Clr Drug Dosing 55.9 ml/min Est GFR ( Amer) 82.5 Est GFR (Non-Af Amer) 71.2 BUN/Creatinine Ratio 18.2 (10-20) Glucose 89 (70-99) mg/dl Calcium 9.9 (8.5-10.1) mg/dl Total Bilirubin 0.4 (0.2-1) mg/dl AST 21 (15-37) U/L ALT 26 (12-78) U/L Alkaline Phosphatase 111 (45-117) U/L Total Protein 6.8 (6.4-8.2) gm/dl Albumin 3.8 (3.4-5.0) gm/dl Globulin 3.0 (2.5-4.0) gm/dl Albumin/Globulin Ratio 1.3 (0.9-2) Urine Color Urine Appearance (Clear) Urine pH (4.5-7.5) Ur Specific [place] (1.000-1.030) Urine Protein (Negative) Urine Glucose (UA) (Negative) Urine Ketones (Negative) Urine Blood (Negative) Urine Nitrite (Negative) Urine Bilirubin (Negative) Urine Urobilinogen (Negative) Ur Leukocyte Esterase (Negative) Urine WBC (Auto) (0-5) /hpf Urine RBC (Auto) (0-4) /hpf U Hyaline Cast (Auto) (0-5) /lpf U Epithel Cells (Auto) (0-5) /lpf Urine Bacteria (Auto) (Negative) COVID-19 Eval Order SARS-CoV-2 (PCR) (Negative) Influenza Type A (PCR) (Neg) Influenza Type B (PCR) (Neg) RSV (RT-PCR) (Neg) PG Care Time/CCT Total # of Minutes Spent Total Time Spent with Patient: Total time spent is greater than 50% in coordination of care (as documented) at patient's floor/unit and/or counseling patient: Coding Level of Care Code 71435 Subseq Hosp Care Lvl 3 Diagnoses Dislocation of hip prosthesis T84.029A; Z96.649 Lupus M32.9 Hypertension I10 Hypertension type: essential hypertension Gout M10.9 (1) Hypertension Hypertension type: essential hypertension Qualified Code(s): I10 - Essential (primary) hypertension
[2021-02-27] MEDS ORDERED: fentaNYL citrate 100 MCG/2 ML VIAL ONE (08:47)
[2021-02-27] MEDS ORDERED: HYDROCORTISONE SOD 50 MG in SYRINGE 0 ML IV SCH (09:00)
[2021-02-27] MEDS ORDERED: HYDROmorphone INJ 1 MG/ML SYRINGE IV PRN (09:21)
[2021-02-27] MEDS ORDERED: fentaNYL citrate 100 MCG/2 ML VIAL IV PRN (09:21)
[2021-02-27] MEDS ORDERED: ATROPINE SULFATE 0.1 MG/ML 10ML SYR IV PRN (09:21)
[2021-02-27] MEDS ORDERED: ePHEDrine sulfate 50 MG/ML AMP IV PRN (09:21)
--- NOTE | 2021-02-27 10:27 | Electrocardiogram Report ---
Test Reason : Blood Pressure : / mmHG Vent. Rate : 077 BPM Atrial Rate : 077 BPM P-R Int : 162 ms QRS Dur : 076 ms QT Int : 404 ms P-R-T Axes : 066 -26 016 degrees QTc Int : 457 ms Normal sinus rhythm with sinus arrhythmia Normal ECG When compared with ECG of 12-JAN-2021 15:25, Premature supraventricular complexes are no longer Present Confirmed by Marcos Red ([id number]) on 02/27/2021 10:26:49 AM Referred By: [facility] Confirmed By:Marcos Red
--- NOTE | 2021-02-27 10:45 | Operative Report ---
Post Operative Report Pre & Post Diagnosis Operation Date: 02/27/21 08:30 Pre-Op Diagnosis: L BALJIT DISLOCATION Post-Op Diagnosis: L BALJIT DISLOCATION I identified the patient and participated in the time-out.: Yes Procedure Operation Date: 02/27/21 08:30 Actual Procedures p Closed Reduction Left Hip(Left) - Jabier Bradshaw MD Surgeon Jabier Bradshaw MD Emissions Testing Technician None Estimated Blood Loss 0 Findings Consistent with Post-Op Diagnosis Specimens None Anesthesia Type General Disposition Accompanied Patient To Recovery: No Disposition: Recovery Room Indications 80-year-old female, medical history significant for lupus on chronic prednisone and osteoporosis, is now 3 weeks out from revision left total hip arthroplasty for periprosthetic fracture treated with long stemmed implant and cabling of the fracture. Yesterday evening she bent forward while sitting on the couch and dislocated her prosthesis. She was brought to the emergency room where Dr. Estrada the covering orthopedic provider attempted a closed reduction under sedation in the emergency room. Unfortunately they were unable to reduce the hip. She was therefore admitted overnight and made n.p.o. to go to the operating room this morning. I saw the patient this morning and discussed the plan to reduce the hip under general anesthesia. After reviewing all the risks and benefits of surgery, alternatives to surgery, and expected outcomes she elected to proceed. All questions were answered. Informed consent was signed. Description of Procedure Patient identified in the preoperative holding area where her surgical site was marked. She was brought back to the operating room where she was carefully moved onto the OSI flat radiolucent operating room table. A timeout was called prior to the procedure. General anesthesia was then administered including succinylcholine. Once the paralysis had taken effect I then positioned 1 chemist assistant holding down her left anterior superior iliac spine with a posteriorly directed force towards the floor. A second chemist assistant was pulling lateral traction on the upper thigh using a sheet. I got up on the operating room table and flexed her hip then pulled longitudinal traction. Initially we had a little difficulty getting countertraction through the pelvis so we had to reposition my chemist assistant holding pressure on the anterior superior iliac spine. Once this was complete the hip easily popped back in. I then performed an exam under anesthesia. Unfortunately this revealed that the patient would dislocate when her hip was flexed past about 60 degrees. This was a significant difference from her surgery 3 weeks ago when I could flex her up to 90 degrees and internally rotate her 60 degrees before she would lever out of the cup. We confirm the reduction with a C arm fluoroscopy. I inspected the fracture and did not visualize any displacement of the fracture. My suspicion is that her femoral component may have rotated within the intramedullary canal from the 15 degree anteverted position that I had her in and now into a retroverted position. Difficult to tell rotational abnormalities of the femoral component on 2D fluoroscopic images however. At this point I made the decision to put her into her hip brace with the flexion limited to 30 degrees. She was then awoken from anesthesia and transferred to recovery room in stable condition. Postoperative course: Patient will remain bed rest on the floor. I discussed the case with Dr. Don Cervantes my partner and we agreed that the best course of action was to transfer her to [facility] to see one of the arthroplasty specialist. I then spoke with Dr. Elfego Chino, an arthroplasty specialist at [facility] about the case. He agreed to assume her care although the patient is on an internal medicine service and the preference was that she would be transferred to a medicine service at [facility]. I spoke with Dr. Estrada the internal medicine attending about transferring her to [facility]. Plan of care will be discussed with the family as well as the patient once she is alert from her anesthetic. Recommend Lovenox 40 mg subcutaneous daily for DVT prophylaxis until she is transferred to [facility]. I attest to the content of the Intraoperative Record and any orders documented therein. Any exceptions are noted below.
--- NOTE | 2021-02-27 10:53 | Anesthesiology Progress Note ---
Date of Service February 27, 2021 Anesthesia Post Procedure Vital Signs Vital Signs: Temp Pulse Pulse Pulse Resp BP BP 02/27/21 10:40 73 18 02/27/21 10:30 73 14 02/27/21 10:20 36.4 C L 72 16 02/27/21 10:10 72 16 02/27/21 10:00 75 20 02/27/21 09:53 36.9 C 76 20 02/27/21 07:26 36.6 C 74 16 02/27/21 01:24 36.6 C 80 16 02/27/21 00:17 82 16 107/60 02/27/21 00:00 82 18 107/60 02/26/21 23:30 83 13 119/72 02/26/21 23:00 83 15 123/79 02/26/21 22:30 81 18 126/76 02/26/21 22:21 83 14 128/80 02/26/21 21:50 76 121/72 02/26/21 21:40 73 129/75 02/26/21 21:30 78 02/26/21 21:28 77 143/82 H 02/26/21 21:26 76 02/26/21 21:20 72 124/76 02/26/21 21:15 78 147/83 H 02/26/21 21:10 76 126/79 02/26/21 21:06 75 138/79 02/26/21 21:01 76 141/80 H 02/26/21 21:00 77 02/26/21 20:56 74 02/26/21 20:55 77 16 141/80 H 02/26/21 20:52 100 H 144/114 H 02/26/21 20:50 94 H 16 144/114 H 02/26/21 20:45 81 11 L 143/84 H 143/84 H 02/26/21 20:41 78 142/91 H 02/26/21 20:40 79 14 142/91 H 02/26/21 20:35 80 10 L 162/94 H 162/94 H 02/26/21 20:31 85 146/97 H 02/26/21 20:30 77 12 146/77 H 02/26/21 20:26 85 142/83 H 02/26/21 20:25 77 19 142/83 H 04/09/21 20:20 78 02/26/21 20:15 80 141/97 H 02/26/21 20:11 02/26/21 19:33 81 18 146/69 H 02/26/21 17:45 85 22 143/84 H 02/26/21 17:28 36.7 C 86 20 140/79 BP Pulse Ox 02/27/21 10:40 120/86 96 02/27/21 10:30 113/63 95 02/27/21 10:20 114/66 96 02/27/21 10:10 109/66 100 02/27/21 10:00 117/71 100 02/27/21 09:53 128/70 100 02/27/21 07:26 100/58 L 99 02/27/21 01:24 112/71 100 02/27/21 00:17 96 02/27/21 00:00 97 02/26/21 23:30 94 02/26/21 23:00 96 02/26/21 22:30 98 02/26/21 22:21 94 02/26/21 21:50 96 02/26/21 21:40 98 02/26/21 21:30 96 02/26/21 21:28 99 02/26/21 21:26 97 02/26/21 21:20 100 02/26/21 21:15 100 02/26/21 21:10 100 02/26/21 21:06 100 02/26/21 21:01 100 02/26/21 21:00 100 02/26/21 20:56 96 02/26/21 20:55 96 02/26/21 20:52 100 02/26/21 20:50 100 02/26/21 20:45 100 02/26/21 20:41 99 02/26/21 20:40 99 02/26/21 20:35 98 02/26/21 20:31 100 02/26/21 20:30 100 02/26/21 20:26 100 02/26/21 20:25 100 02/26/21 20:20 100 02/26/21 20:15 100 02/26/21 20:11 100 02/26/21 19:33 95 02/26/21 17:45 100 02/26/21 17:28 100 Transfer of Care Handoff Completed per policy Notes Mental Status: alert / awake / arousable and participated in evaluation Patient Amnestic to Procedure: Yes Nausea / Vomiting: adequately controlled Pain: adequately controlled Airway Patency, RR, SpO2: stable & adequate BP & HR: stable & adequate Hydration State: stable & adequate Anesthetic Complications: no major complications apparent and Pt Satisfied with anesthetic care
[2021-02-27] MEDS: cefTRIAXone SODIUM 1,000 MG in DEXTROSE 5% 50 ML IV SCH (11:05)
[2021-02-27 11:25] LABS: Basophils # (auto) 0.02 K/uL (0-0.2); Basophils % (auto) 0.3 %; Eosinophils # (auto) 0.27 K/uL (0-0.5); Eosinophils % (auto) 4.1 %; Hematocrit (blood only) 32.6 % (37-47); Hemoglobin 10.8 g/dL (12.0-16.0); Immature Granulocytes # (auto) 0.02 K/uL (0.00-0.02); Immature Granulocytes % (auto) 0.3 %; Lymphocytes # (auto) 1.11 K/uL (1.2-3.4); Lymphocytes % (auto) 16.8 %; Mean Corpuscular Hemoglobin 31.8 pg (25-34); Mean Corpuscular Hgb Conc 33.1 g/dL (32-36); Mean Corpuscular Volume 95.9 fL (80-100); Mean Platelet Volume 8.6 fL (7.4-10.4); Monocytes # (auto) 0.51 K/uL (0.11-0.59); Monocytes % (auto) 7.7 %; Neutrophils # (auto) 4.69 K/uL (1.4-6.5); Neutrophils % (auto) 70.8 %; Platelet Count 286 K/uL (130-400); RDW Coefficient of Variation 14.5 % (11.5-14.5); RDW Standard Deviation 51.1 fL (36.4-46.3); White Blood Count 6.62 K/uL (4.8-10.8)
[2021-02-27 11:43] LABS: Albumin Level 3.1 gm/dl (3.4-5.0); BUN Creatinine Ratio 15.8 (10-20); Calcium 8.9 mg/dl (8.5-10.1); Creatinine Clr Calc Pharmacy 56.1 ml/min; Est GFR (African American) 85.1; Est GFR (Non-African American) 73.4; Potassium 4.3 mmol/L (3.5-5.1)
[2021-02-27 11:47] LABS: Albumin Globulin Ratio 1.2 (0.9-2); Bilirubin,Total 0.5 mg/dl (0.2-1); Globulin 2.6 gm/dl (2.5-4.0); Total Protein 5.7 gm/dl (6.4-8.2)
--- NOTE | 2021-02-27 12:03 | Discharge Summary ---
Date of Service February 27, 2021 Admission HPI Per Admitting Provider The patient is a 80-year-old female with a past medical history including metabolic encephalopathy, acute blood loss anemia, osteoporosis, periprosthetic fracture femur following total hip replacement, colonic diverticular abscess, lupus, hypertension, breast cancer, gout, UTI, and right rotator cuff tear arthropathy. She underwent a left total hip arthroplasty on 01/13/2021. She presented to emergency department this evening after developing acute pain when going from sitting to standing. X-rays in emergency department showed a dislocation of the femoral component of the left hip arthroplasty with respect to the acetabular cup. This was attempted to be reduced in the emergency department after conscious sedation, but the attempt was unsuccessful. The plan is for the patient to be admitted to the medical service, and orthopedic surgery will take the patient to the OR in the a.m. for relocation of the left BALJIT. Discharge Data Allergies Allergy/AdvReac Type Severity Reaction Status Date / Time adhesive tape Allergy ITCHING Unverified 02/26/21 20:06 shellfish derived AdvReac Intermediate Gastrointestinal Verified 02/26/21 20:04 Upset morphine AdvReac Mild n/v Verified 02/26/21 20:05 Consultations 02/26/21 21:05 ED Decision to Admit Stat Procedures Performed Operation Date: 02/27/21 08:30 Actual Procedures p Closed Reduction Left Hip(Left) - Jabier Bradshaw MD Ordered Studies 02/27/21 FL fluoroscopy <1hr Routine FL hip LT 2-3V Routine Hospital Course (1) Dislocation of hip prosthesis: Dislocation of left total hip arthroplasty- patient underwent recent LEFT total hip arthroplasty on 01/13/21 Pain control: Acetaminophen 650 mg p.o. every 6 hours as needed mild pain or fever [place] 5/325, 1 p.o. every 6 hours as needed moderate pain, and 2 p.o. every 6 hours as needed severe pain Dilaudid 0.25 mg IV every 3 hours as needed moderate pain. Dilaudid 0.5 mg IV every 3 hours as needed severe pain. Orthopedic surgery consulted -- Failed attempts for reduction in ER with Dr. Estrada and plans for OR for correction this morning --Placed on Hydrocortisone 50mg IV for stress dose in patient on chronic steroids for her lupus in addition to maintenance Plaquenil NSS + KCl 20 mEq at 80 mils per hour NPO for now OR planned this AM for closed reduction --> if unsuccessful will plan for open reduction tomorrow with possible revision to a constrained liner. UA appears infected. Hx Ecoli UTI and will place on Rocephin IV daily and monitor culture Holding Xarelto, which she had been on for 30 days post revisional left BALJIT procedure on 02/04/2021 (2) Lupus: Resume hydroxychloroquine post procedure Stress dose steroids for today as above (3) Hypertension: BP hypotensive 100/58 -- stress dose steroids as above for today On NS+20K @ 80cc/hr while NPO Holding outpatient HCTZ and Lisinopril -- consider changing HCTZ outpatient vs increasing her lisinopril 5mg vs adding low dose BB given history of gout as well Continue to monitor (4) Gout: Resume allopurinol after procedure Holding HCTZ as above -- consider different agent at d/c Dispo: OR today for hip reduction Discharge Plan Discharge Items Reason For Visit: L BALJIT DISLOCATION Condition on Discharge: Good Medications and DC Order Prescriptions: No Action prednisone 5 mg tablet 5 mg PO QAM RF: 0 allopurinol [Zyloprim] 300 mg tablet 300 mg PO QAM RF: 0 hydrochlorothiazide 25 mg tablet 25 mg PO QAM RF: 0 hydroxychloroquine [Plaquenil] 200 mg tablet 300 mg PO QAM RF: 0 lisinopril [Zestril] 5 mg tablet 5 mg PO QAM RF: 0 alendronate [Fosamax] 70 mg Tablet 70 mg PO WK RF: 0 Soothe Lubricant 0.6-0.6 % Dropperette 1 drp ophthalmic (eye) HS RF: 0 Xarelto 10 mg Tablet 10 mg PO DAILY 30 Days Qty: 30 RF: 0 acetaminophen 500 mg Tablet 1,000 mg PO Q8 MDD 3000MG Qty: 60 RF: 0 tramadol 50 mg Tablet 50 mg PO .Q6hrs PRN (Reason: severe pain) Qty: 30 RF: 0 cholecalciferol (vitamin D3) [Vitamin D3] 50 mcg (2,000 unit) Tablet 100 mcg PO DAILY RF: 0 calcium carbonate [Tums 500] 500 mg calcium (1,250 mg) Tablet,Chewable 1,000 mg PO DAILY RF: 0 Admission Data Admit Date/Time: 02/26/21 23:05 Attending Provider: Luis Eduardo May Admit Provider: Live Rolon Primary Care Provider: Lonnie Dewitt Other Providers: Live Rolon Coding Diagnoses Dislocation of hip prosthesis T84.029A; Z96.649 Lupus M32.9 Hypertension I10 Hypertension type: essential hypertension Gout M10.9
[2021-02-27] MEDS: ENOXAPARIN INJ 40 MG/0.4 ML SYR SQ SCH (13:08)
[2021-02-27] MEDS: HYDROCORTISONE SOD 50 MG in SYRINGE 0 ML IV SCH (17:38)
--- NOTE | 2021-02-27 17:51 | Discharge Summary ---
Date of Service February 28, 2021 Admission HPI Per Admitting Provider Chief Complaint: The patient presents to the emergency department with complaint of severe left hip pain when she went from sitting to standing earlier this evening. Primary Care Provider: AT [facility] The patient is a 80-year-old female with a past medical history including metabolic encephalopathy, acute blood loss anemia, osteoporosis, periprosthetic fracture femur following total hip replacement, colonic diverticular abscess, lupus, hypertension, breast cancer, gout, UTI, and right rotator cuff tear arthropathy. She underwent a left total hip arthroplasty on 01/13/2021. She presented to emergency department this evening after developing acute pain when going from sitting to standing. X-rays in emergency department showed a dislocation of the femoral component of the left hip arthroplasty with respect to the acetabular cup. This was attempted to be reduced in the emergency department after conscious sedation, but the attempt was unsuccessful. The plan is for the patient to be admitted to the medical service, and orthopedic surgery will take the patient to the OR in the a.m. for relocation of the left BALJIT. Admission Exam Per Admitting Provider The patient is awake, alert and oriented 3, well developed and well nourished, normocephalic and atraumatic, lying in bed and in mild to moderate distress due to left hip pain HEENT--PERRL, EOMI, mucous membranes and oropharynx dry. Neck--supple. No JVD. No bruits. Thyroid normal, trachea midline, no adenopathy. Heart--normal S1 and S2. No murmurs, rubs or gallops. Lungs--clear bilaterally, no respiratory distress, no accessory muscle use. Abdomen--normal bowel sounds and soft. Nontender. Nondistended. Extremities--no cyanosis or clubbing. No edema. Dermatologic--normal skin turgor, normal color, no abnormal lymph nodes, no rash. Neurologic--cranial nerves II through XII grossly intact. Rheumatologic--limited exam due to pain Psychiatric--normal affect. Principal Diagnosis Left Hip Dislocation Discharge Exam The patient is awake, alert and oriented 3, well developed and well nourished, normocephalic and atraumatic, lying in bed. No acute distress. Laying flat on her back. HEENT--PERRL, EOMI, mucous membranes and oropharynx slightly dry. Trachea midline and without deviation. Resp: CTAB, no w/r/c CV: NSR, no r/m/g. calves non-tender. No edema. cap refill <3 seconds Abdomen--+BS four quadrants, soft, non-tender. Nondistended Extremities--no cyanosis or clubbing. No edema. Dermatologic--normal skin turgor, normal color, no abnormal lymph nodes, no rash. Neurologic--cranial nerves II through XII grossly intact. MSK/Rheumatologic--limited exam due to pain. ROM was not attempted due to instability of dislocation however patient is NVI and pulses are palpable bilaterally and she has full sensation. Immobilizer in place and locked. She is able to plantar/dorsiflex without issue and calves are non-tender to palpation. Psychiatric--AOx3, euthymic affect. Discharge Data Allergies Allergy/AdvReac Type Severity Reaction Status Date / Time adhesive tape Allergy ITCHING Unverified 02/26/21 20:06 shellfish derived AdvReac Intermediate Gastrointestinal Verified 02/26/21 20:04 Upset morphine AdvReac Mild n/v Verified 02/26/21 20:05 Consultations 02/26/21 21:05 ED Decision to Admit Stat 02/27/21 13:35 Burn CD for patient Routine Procedures Performed Operation Date: 02/27/21 08:30 Actual Procedures p Closed Reduction Left Hip(Left) - Jabier Bradshaw MD Ordered Studies 02/27/21 FL fluoroscopy <1hr Routine FL hip LT 2-3V Routine Hospital Course (1) Dislocation of hip prosthesis: Dislocation of left total hip arthroplasty- patient underwent recent LEFT total hip arthroplasty on 01/13/21 followed by a periprosthetic fracture of the femur requiring total hip replacement with Dr. Bradshaw. Patient was seen in the emergency room by Dr. Estrada who attempted several maneuvers to put her hip back into place but this was unsuccessful. She was made n.p.o. and orthopedics was consulted with medicine as the admission team. Patient was taken to the OR with Dr. Reno who did manage to get her hip back into place however is unstable and requires further management. The case was discussed with Dr. Cervantes who also recommended transfer for treatment. Orthopedics team was in contact with Dr. Leyva at [facility] who agreed to take the patient under consult if medicine team willing to accept. She remains on complete bedrest for now and Lovenox SQ was started for prophylaxis at this time. Discussed case with Talia, Dr. Peng (orthopedics) and Dr. Astudillo (Internal Medicine) for transfer and they will accept at this time. Anticipate transfer either tonight or early tomorrow pending bed availability Now now: Can have diet but if remains inpatient would make NPO after midnight Pain control: Acetaminophen 650 mg p.o. every 6 hours as needed mild pain or fever [place] 5/325, 1 p.o. every 6 hours as needed moderate pain, and 2 p.o. every 6 hours as needed severe pain Dilaudid 0.25 mg IV every 3 hours as needed moderate pain. Dilaudid 0.5 mg IV every 3 hours as needed severe pain. Placed on Hydrocortisone 50mg IV for stress dose in patient on chronic steroids for her lupus in addition to maintenance Plaquenil and will place on Q8H IV for now Continued IVF UA obtained on admission and appears infect. Hx Ecoli/proteus UTI pansensitive and patient was placed on Rocephin empirically --> Culture with gram negative bacilli --> continue to follow. On Rocephin day 2 Holding Xarelto, which she had been on for 30 days post revisional left BALJIT procedure on 02/04/2021 (2) Lupus: Resume hydroxychloroquine post procedure Stress dose steroids for today as above (3) Hypertension: BP hypotensive 100/58 -- stress dose steroids as above for today On NS+20K @ 80cc/hr Holding outpatient HCTZ and Lisinopril -- consider changing HCTZ outpatient vs increasing her lisinopril 5mg vs adding low dose BB given history of gout as well Continue to monitor (4) Gout: Resume allopurinol after procedure Holding HCTZ as above -- consider different agent at d/c updated by phone. Dispo: awaiting bed at [facility] Patient was transported to [facility] via BLS to the third floor room 3243 Total Time Total Time Spent Total Time Spent (In Minutes): 70 Discharge Plan Discharge Items Patient Disposition: Transfer Acute Care Hospital Reason For Visit: L BALJIT DISLOCATION Discharge Diagnosis: Left Hip Dislocation Condition on Discharge: Good Goals: You have been hospitalized for an urgent problem which required surgery. During your stay at [facility], we have made an effort to correct the problem that brought you to the hospital while keeping you as comfortable as possible. Surgery and medications were used to bring your condition under control and your discharge instructions will include directions for any medications you should take after leaving the hospital. Please make sure to follow the advice of your surgeon regarding follow up with the surgeon and with your primary care provider. Activity: As commented below Activity Comment: complete bedrest Non-emergency contact: Primary Care Provider and Surgeon Call non-emergency contact if: you have any medication questions Follow-up/Referrals: Lonnie Dewitt [Primary Care Provider] - Diet: Regular Diet Comment: NPO after midnight Addtl Attending Provider Instructions: You have been hospitalized for an acute hip dislocation. Attempts were made with maneuvers to get this back into place that were unsuccessful. You were taken to the OR for closed reduction which did get the hip back into place but is unstable requiring transfer for further treatment/stabilization. You were placed on Ceftriaxone IV for a possible UTI and urine culture shows gram negative bacilli and final cultures are not yet back. You were placed on IV steroids for stress dose since you are on chronic steroids. You were placed on Lovenox for DVT prevention and your Xarelto has been held. You are allowed to eat for today but will be NPO after midnight for intervention. Final treatment to be determined at [facility]. It has been a pleasure being a part of the medical team providing for you while you have been in the hospital. Take care! Pending Studies at Discharge: Yes Studies:: Urine culutre Stand-Alone Forms: My [facility] Skilled Items Patient informed of condition?: Yes DNR: No Discharge Level of Care: Other Communicable Disease: No Discharge Prognosis: Stable Lines: Peripheral IV Urinary Catheter: Yes Medications and DC Order Prescriptions: New enoxaparin 40 mg/0.4 mL Syringe 40 mg subcut QAM 1 Days Qty: 0.4 RF: 0 Continued prednisone 5 mg tablet 5 mg PO QAM RF: 0 allopurinol [Zyloprim] 300 mg tablet 300 mg PO QAM RF: 0 hydrochlorothiazide 25 mg tablet 25 mg PO QAM RF: 0 hydroxychloroquine [Plaquenil] 200 mg tablet 300 mg PO QAM RF: 0 lisinopril [Zestril] 5 mg tablet 5 mg PO QAM RF: 0 alendronate [Fosamax] 70 mg Tablet 70 mg PO WK RF: 0 Soothe Lubricant 0.6-0.6 % Dropperette 1 drp ophthalmic (eye) HS RF: 0 Xarelto 10 mg Tablet 10 mg PO DAILY 30 Days Qty: 30 RF: 0 acetaminophen 500 mg Tablet 1,000 mg PO Q8 MDD 3000MG Qty: 60 RF: 0 tramadol 50 mg Tablet 50 mg PO .Q6hrs PRN (Reason: severe pain) Qty: 30 RF: 0 cholecalciferol (vitamin D3) [Vitamin D3] 50 mcg (2,000 unit) Tablet 100 mcg PO DAILY RF: 0 calcium carbonate 500 mg calcium (1,250 mg) Tablet,Chewable 1,000 mg PO DAILY RF: 0 Discharge Orders: Discharge Order (Routine); Ordered 02/27/21 Ordered By: Anupama Wayne Admission Data Admit Date/Time: 02/26/21 23:05 Attending Provider: Luis Eduardo May Admit Provider: Live Rolon [facility] Other Providers: Live Rolon Other Interventions: Discharge Summary Assessment (RN) Last Done: 02/28/21 13:10 Coding Level of Care Code D/C Day Management >30 mins Diagnoses Dislocation of hip prosthesis T84.029A; Z96.649 Lupus M32.9 Hypertension I10 Hypertension type: essential hypertension Gout M10.9
[2021-02-27] MEDS ORDERED: traZODone HCL 50 MG TAB PO PRN (18:14)
[2021-02-28] MEDS: HYDROCORTISONE SOD 50 MG in SYRINGE 0 ML IV SCH ×2 (02:21→09:08)
[2021-02-28] MEDS: NSS + 20MEQ KCL 20 MEQ/1,000 ML BAG IV SCH (05:49)
[2021-02-28 06:24] LABS: Hematocrit (blood only) 31.9 % (37-47); Hemoglobin 10.8 g/dL (12.0-16.0); Mean Corpuscular Hemoglobin 32.2 pg (25-34); Mean Corpuscular Hgb Conc 33.9 g/dL (32-36); Mean Corpuscular Volume 95.2 fL (80-100); Mean Platelet Volume 8.7 fL (7.4-10.4); Platelet Count 272 K/uL (130-400); RDW Coefficient of Variation 14.2 % (11.5-14.5); RDW Standard Deviation 49.2 fL (36.4-46.3); Red Blood Count 3.35 M/uL (4.2-5.4); White Blood Count 9.09 K/uL (4.8-10.8)
[2021-02-28 06:49] LABS: Calcium 8.3 mg/dl (8.5-10.1); Creatinine Clr Calc Pharmacy 65.5 ml/min; Est GFR (African American) 97.4
[2021-02-28] MEDS: cefTRIAXone SODIUM 1,000 MG in DEXTROSE 5% 50 ML IV SCH (09:07)
[2021-02-28] MEDS: ENOXAPARIN INJ 40 MG/0.4 ML SYR SQ SCH (09:09)
[2021-02-28] MEDS ORDERED: allopurinoL 300 MG TAB PO ONE (11:01)
--- NOTE | 2021-03-01 13:21 | Fluoroscopy Report ---
FL hip LT 2-3V CLINICAL HISTORY: CLOSED REDUCTION - LT HIP - IN OR COMPARISON STUDY: None. FLUOROSCOPY TIME: 16 seconds. FINDINGS: 3 fluoroscopic spot images of the left hip demonstrate closed reduction of the left femoral prosthesis. Alignment is anatomic. No dislocation or fracture. The hardware is intact. IMPRESSION: Fluoroscopy provided for closed reduction of the left hip dislocation. ACT 112: Negative or not required by law. Electronically signed by: Kevin Licona M.D. 03/01/2021 1:19 PM
== END 2021-02-28 14:13 | disposition short-term general hospital (02) | DRG 560 ==
LOC: ED 17:28 → SUATTDRO 23:05 → 3W 23:05

== ENCOUNTER 2025-08-21 08:42 | Observation (INO) ==
--- NOTE | 2025-07-28 14:25 | History & Physical Report ---
Date of Service July 28, 2025 Assessment & Plan (1) Rupture of hip abductor tendon: Plan: PRE-OP Diagnosis: Right hip abductor tendon tear Planned Procedure: Right open tendon repair of right hip abductor tendon Plan: Patient is scheduled to undergo this procedure at the [facility] with Dr. Bradshaw on August 21, 2025. Risks and complications of the procedure such as: Infection, bleeding, pain, scarring, nerve and blood vessel damage, weakness, wound problems, stiffness, incomplete relief of symptoms, tendon or ligament injury, hardware failure, blood clots, embolism, heart attack, stroke and explained to the patient at her visit today. Informed consent to perform the procedure was obtained. Patient will need to obtain a preoperative medical clearance from her primary care provider along with an EKG, CBC and a comprehensive metabolic panel. I provided her with orders to obtain these during her visit today. She states she has already seen her primary care provider and that a note is in her chart. Patient will be adm itted overnight for pain control and postoperative PT and OT before discharge. During today's visit the PDMP was checked and no red flags were raised and we will provide this from prescribing the patient an opioid analgesic prior to discharge. I advised her that we will most likely put her on oxycodone for postoperative pain control. Will have her on aspirin 81 mg twice a day for 30 days postoperatively for blood clot prevention. She states she does have a walker she will bring with her on the morning of surgery. Patient states she would like to be discharged to [facility] for 2 weeks of physical therapy, then she would like to do 2 weeks of in-home therapy before transitioning to outpatient therapy [facility]. Patient states that she is scheduled to see me for her 2-week postoperative follow-up visit on September 03. If she has questions or concerns should arise prior to her surgery, she will contact the clinic. This chart was completed utilizing [employer] voice recognition software. Grammatical errors, random word insertions, pronoun errors, and in complete sentences are an occasional consequence of the system. Any questions or concerns about the content, text, or information contained within the body of this dictation should be addressed directly to the physician for clarification. History of Present Illness Chief Complaint: Chief Complaint: Right hip pain Primary Care Provider: Dolly Mahajan, DO History of Present Illness (including history relevant to procedure): This 84-year-old female presents to the clinic today for her preoperative history and physical. Patient states she felt a snap in early April while sitting down and hasbeenexperiencingconstant pain since. She has the greatest pain in her lumbar region that onset after prolonged standing and walking. She has been going to formal PT but feels the pain has become worse. Patient states that now she is having trouble sleeping at night. She is walking with a considerable limp and that any type of activity exacerbates her pain. Due to failed conservative management she is electing proceed with surgical intervention. Review Of Systems: A 12 point review of systems is performed and is unremarkable except for those things stated in the HPI and past medical history. Past Medical History: Problems: Diverticulosis Gout Hypertension History of breast cancer S/P total hip arthroplasty Actinic cheilitis Actinic keratoses History of squamous cell carcinoma Hand arthritis Arthritis of foot Lupus Procedure History Procedure Procedure Date Comments Punch biopsy of skin Excision 01/02/2025 - right dorsal hand Curettage and cauterization of skin lesion 11/23/2023 - left neck Shave biopsy 10/31/2023 - left neck Closed fracture of left femur 03/2021 History of total replacement of left hip joint 03/2021 History of hip surgery 2020 - left hip Shave biopsy and cauterisation of skin 07/20/2020 Reverse shoulder replacement 12/26/2019 Mohs micrographic surgery 12/25/2018 Shave biopsy and cauterization of skin 11/27/2018 - right guevara Anterior colporrhaphy 12/13/2017 Cystourethroscopy 12/13/2017 Cystourethroscopy 05/01/2017 Hysterectomy 05/01/2017 Uterosacral ligament 05/01/2017 Mammogram - screening 09/15/2016 - Amendment; Prior outside mammograms from the [facility] dated 09/02/13, 09/23/2013, 09/03/2014, 09/09/15 became available for review. there has been no significant interval change compared to the recent prior mammograms. There are stable post surgical changes/posttreatment changes in the left breast. Scattered benignappearing calcifications bilaterally. No new suspicious mass, architectural distortion or cluster of suspicious microcalcifications is identified. Advise follow-upp in 1 year for next annual screening mammogram. - Impression: Expected postsurgical changes in the left breast from prior lumpectomy. There is no mammograpic evidence of maligna ncy bilaterally. Prior outside mammograms are currently being requested and if obtained they will be reviewed and compared to the current exam to assess for any more subtle changes. Then an addendum will be paid to this report. Otherwise, a 1 year screening mammogram is recommended. The patient will receive written notification of the results. Bone density scan 09/15/2016 - T-score: -1.5. Excision squamous cell ca of Right lower leg 2014 - 2014 Pap smear for cervical cancer screening 07/29/2015 - Diagnosis: Negative for intraepithelial lesion or malignancy. Lumpectomy of breast left 2013 - 2013 Pap smear for cervical cancer screening 07/08/2014 - diagnosis: negative for intraepithelial lesion or malignancy. Squamous epithelial atrophy. Pap smear for cervical cancer screening 07/03/2013 - diagnosis: Negative for intraepithelial lesion or malignancy. Hip replacement right 2010 - 2010 Cataracts, bilateral 2010 - 2010 Allergies and Sensitivities: morphine(Vomiting) scallops(nausea, vomitting & diarrhea) lobster(nausea, vomitting, diarrhea) Current Home Meds: (Last Updated 07/23 11:05) alendronate (alendronate 70 mg oral tablet) 70 mg PO q7days allopurinol (allopurinol 300 mg oral tablet) TAKE 1 TABLET BY MOUTH DAILY atorvastatin (atorvastatin 80 mg oral tablet) 30 tab, 0 Refill(s) Responsible Provider: RISHI LOZANO 03/19 10:15 clobetasol topical (clobetasol 0.05% topical solution) Apply twice daily to affected areas of the scalp until improved or for a maximum of 4 weeks continuously. hydroCHLOROthiazide (hydroCHLOROthiazide 25 mg oral tablet) TAKE 1 TABLET BY MOUTH DAILY hydroxychloroquine (hydroxychloroquine 200 mg oral tablet) TAKE 1 AND 1/2 TABLETS BY MOUTH DAILY lisinopril (lisinopril 5 mg oral tablet) TAKE 1 TABLET BY MOUTH DAILY mometasone topical (mometasone 0.1% topical ointment) Apply 1-2 g once daily to affected areas of the face, neck, chest and arms until improved or for a maximum of 4 weeks continuously (up to 2 weeks for the face). predniSONE (predniSONE 5 mg oral tablet) TAKE 1 TABLET BY MOUTH DAILY triamcinolone topical (triamcinolone 0.025% topical ointment) 1 appl topical bid Allergies Allergy/AdvReac Type Severity Reaction Status Date / Time adhesive tape Allergy ITCHING Unverified 07/12/25 08:52 shellfish derived AdvReac Intermediate Gastrointestinal Verified 07/12/25 08:52 Upset morphine AdvReac Mild n/v Verified 07/12/25 08:52 Home Medications Medication Instructions Recorded Confirmed Type allopurinol 300 mg tablet 300 mg PO QAM 02/16/19 07/12/25 History (Zyloprim) hydrochlorothiazide 25 mg tablet 25 mg PO QAM 02/16/19 07/12/25 History lisinopril 5 mg tablet (Zestril) 5 mg PO QAM 02/16/19 07/12/25 History prednisone 5 mg tablet 5 mg PO QAM 02/16/19 07/12/25 History alendronate 70 mg tablet (Fosamax) 70 mg PO WK 01/07/21 07/12/25 History acetaminophen 500 mg tablet 1,000 mg (2 x 500 mg) PO Q8 mild 02/08/21 07/12/25 Rx to moderate pain #60 tabs calcium carbonate 1,000 mg PO DAILY 02/26/21 07/12/25 History cholecalciferol (vitamin D3) 50 100 mcg PO DAILY 02/26/21 07/12/25 History mcg (2,000 unit) tablet (Vitamin D3) clobetasol 0.05 % topical cream 1 applic topical DAILY 04/10/25 07/12/25 History mometasone 0.1 % topical cream 1 applic topical DAILY 04/10/25 07/12/25 History propylene glycol-glycerin 0.6 1 drp ophthalmic (eye) HS PRN Dry 04/10/25 07/12/25 History %-0.6 % eye drops in a dropperette Eye(S) (Soothe Lubricant) hydroxychloroquine 200 mg tablet 200 mg PO UD 04/17/25 07/12/25 History (Plaquenil) Past Med/Surg History Problem List (Updated 07/28/25 @ 14:24 by [place] Rent[place] PA-C) Rupture of hip abductor tendon Contusion of face (Acute) Fall (Acute) Osteoarthritis Hypertension Encephalopathy due to metabolic factor or toxin Acute blood loss anemia Osteoporosis Periprosthetic fracture of femur following total replacement of hip Colonic diverticular abscess Diverticulitis Leukocytosis Lupus Hypertension Breast cancer Gout UTI (urinary tract infection) Encounter for pre-operative examination Right rotator cuff tear arthropathy Medical History Dislocation of hip prosthesis Lumbar disc disease Hx of gout Hx of breast cancer LEFT (SURGERY AND RADIATION TX 8 YRS AGO) NO CURRENT ISSUES Dry eye syndrome FOLLOWS WITH EYE DOCTOR ANNUALLY USES LUBRICANT Q HS Lupus On prednisone/plaquenil- follows with PCP for management - controlled and stable Surgical History H/O shoulder replacement RT History of esophagogastroduodenoscopy (EGD) [place] teeth removed History of cataract surgery RT/LEFT History of total right hip replacement History of lumpectomy of left breast History of colonoscopy H/O bladder repair surgery H/O: hysterectomy Family History Mother Family history of diabetes mellitus Grandmother No problems noted. Grandmother (Maternal) Family history of diabetes mellitus Other Coronary heart disease No family history of adverse response to anesthesia Social History Smoking Status: Never smoker Second Hand Exposure: Yes ( A CHILD); Do You Dip or Chew Tobacco: No; Hx Alcohol Use: Yes Alcohol type: wine and hard liquor Hx Substance Use: No Preferred Language: Surinamese Communication Ability: Unable Visual Impairment: No Limitations Hearing Ability: Normal Supervisor Shuttle Fitting Required: No Beliefs That Will Affect Care: Jain Jain Beliefs: shinto marital status: Current Living Situation: Alone Current Living Situation Comment: LIVES AT [facility]. LIVING current occupational status: retired Feels Safe at Home: Yes Assistive Devices: Brace/Splint/Immobilizer Review of Systems All systems reviewed & are unremarkable except as noted in Subjective Physical Exam Physical Exam: Initial Wt: 07/23 61.4 kg 135 lb Physical Exam: (relevant to the procedure, including heart and lung evaluation) General: Alert and oriented x 3 with proper grooming and hygiene Eyes: Pupils are equal and reactive to light with accommodation. Extraocular mo vements are intact Throat: Posterior oropharynx clear without some edema, erythema or exudate Cardiac: Regular rate and rhythm with no murmurs or gallops appreciated Lungs: Clear to auscultation throughout with no wheezing, rales or rhonchi Abdomen: Nonobese, nondistended, nontender with normal active bowel sounds Extremities: Right hip; ROM: Flexion 100/ External rotation 45/ Internal rotation 10 3+/5Hip abductorStrength - Log roll + Tenderness over trochanteric bursa, gl uteus medius - Stinchfield test -Tenderness lumbo sacral spine, pirifor mis, sciatic nerve -SI joint tenderness - Alan's test Well healed incision for previous BALJIT Trendelenburg gate 3mm shorter left leg than right Neuro: Cranial nerves II through XII are intact no motor or sensory deficit Skin: Normal appearance with no open skin areas or discharge Results & Data Diagnostic Findings Studies (relevant to the procedure): MRI of the right hip from 06/23/25 show a full thickness tear of gluteus medius. AP pelvis Cross Table lateral views of the right hip obtained 06/13/25 show bilateral hip arthroplasty hardware is intact with no evidence of loosening.
--- NOTE | 2025-08-11 14:54 | Anesthesiology Consultation ---
Date of Service August 11, 2025 Assessment & Plan (1) Encounter for pre-operative examination: Chart Review Chart Review: Acceptable Risk for Surgery (pending EKG stat DOS ) and Patient NOT seen in Pre Admission Testing - Check EKG stat DOS Left limb restriction -Infectious Disease screening: Per PAT nursing assessment on 08/11/25. Patient started with cough and congestion 08/04/25 (treated with abx by PCP), symptoms as of 08/11/25- almost fully resolved. Did test Covid negative thru PCP office 08/04/25. No known infectious disease contacts in past 10 days. No recent travel outside the country. Symptom onset >11 days from DOS/also tested Covid negative- patient can proceed as scheduled as long as symptoms are resolved by DOS. PCP office visit 07/10/25 = "seen for preop clearance for surgery... Intermediate risk surgery... 4 METs exercise tolerance... Revised Cardiac Risk Index score 0 ... no cardiac symptoms at rest or on exertion... no hx of ischemic heart disease... never needed a stress test, cardiac cath, or coronary revascularization... chronically immunosuppressed due to treatment for her lupus... Risks and benefits of surgery were reviewed with the patient along with the benefits of possible surgery and she would like to proceed with the operation. We consider her safe for the proposed surgical procedure. CBC and BMP will be checked within 30 days prior to operation..." Right Hip Closed Reduction 02/27/21= Done under [place]. History Surgery Operation Date: 08/21/25 10:20 Proposed Procedures p Right Hip Open Abductor Tendon Repair - Jabier Bradshaw MD Height/Weight Height: 5 ft 2 in Weight: 61.235 kg Allergies Allergy/AdvReac Type Severity Reaction Status Date / Time adhesive tape Allergy ITCHING Verified 08/11/25 13:40 shellfish derived AdvReac Intermediate Gastrointestinal Verified 08/11/25 13:40 Upset morphine AdvReac Mild severe N/V Verified 08/11/25 13:40 Medications Home Medications Medication Instructions Recorded Confirmed Last Taken allopurinol 300 mg tablet 300 mg PO QAM 02/16/19 08/11/25 02/04/21 06:30 (Zyloprim) hydrochlorothiazide 25 mg tablet 25 mg PO QAM 02/16/19 08/11/25 02/04/21 06:30 lisinopril 5 mg tablet (Zestril) 5 mg PO QAM 02/16/19 08/11/25 02/04/21 06:30 prednisone 5 mg tablet 5 mg PO QAM 02/16/19 08/11/25 02/04/21 06:30 alendronate 70 mg tablet (Fosamax) 70 mg PO Q7D 01/07/21 08/11/25 01/31/21 calcium carbonate 1,000 mg PO QAM 02/26/21 08/11/25 Unknown cholecalciferol (vitamin D3) 50 100 mcg PO QAM 02/26/21 08/11/25 Unknown mcg (2,000 unit) tablet (Vitamin D3) clobetasol 0.05 % topical cream 1 applic topical DAILY PRN lupus 04/10/25 08/11/25 Unknown flare mometasone 0.1 % topical cream 1 applic topical DAILY PRN lupus 04/10/25 08/11/25 Unknown flare propylene glycol-glycerin 0.6 1 drp ophthalmic (eye) HS PRN Dry 04/10/25 08/11/25 Unknown %-0.6 % eye drops in a dropperette Eye(S) (Soothe Lubricant) hydroxychloroquine 200 mg tablet 200 mg PO QAM 04/17/25 08/11/25 Unknown (Plaquenil) acetaminophen 500 mg tablet 1,000 mg PO Q8H PRN mild to 08/11/25 08/11/25 Unknown moderate pain Past Medical History Medical History (Updated 08/11/25 @ 15:01 by Sujatha Coe PA-C) Dislocation of hip prosthesis Diverticulitis 04/2025 per A/P CT 05/09/25 Dry eye syndrome Follows annually with eye doctor Uses lubricant q HS HTN (hypertension) Hx of breast cancer (2012) LEFT, sx and xrt Hx of gout Lumbar disc disease Lupus On prednisone/plaquenil- follows with PCP for management - controlled and stable Osteoarthritis Osteoporosis Past Family History Family History Mother Family history of diabetes mellitus Grandmother No problems noted. Grandmother (Maternal) Family history of diabetes mellitus Other Coronary heart disease No family history of adverse response to anesthesia Past Surgical History Surgical History H/O bladder repair surgery H/O shoulder replacement RT H/O: hysterectomy History of cataract surgery RT/LEFT History of colonoscopy History of esophagogastroduodenoscopy (EGD) History of lumpectomy of left breast History of orthopedic surgery (2020) closed reduction left hip History of revision of total replacement of left hip joint 2020, [facility], 2/ to fx she got post-op from total hip replacment while walking History of total left hip replacement 2020 History of total right hip replacement [place] teeth removed Social History Smoking Status: Former smoker tobacco type: cigarettes Do You Dip or Chew Tobacco: No Smoking End Date: 1999 Hx Alcohol Use: Yes Alcohol type: wine alcohol intake frequency: holidays/special occasions only Hx Substance Use: No substance use type: does not use Lab Results Anesthesia Preop Results Results Anesthesia Widget: WBC 6.23 K/ul (4.8-10.8) 07/25/25 Hgb 14.7 g/dl (12.0-16.0) 07/25/25 Hct 42.0 % (37.0-47.0) 07/25/25 Plt 211 K/uL (130-400) 07/25/25 Na 137 mmol/L (136-145) 07/25/25 K 3.9 mmol/L (3.5-5.1) 07/25/25 Cl 100 mmol/L (98-107) 07/25/25 CO2 31 mmol/L (21-32) 07/25/25 BUN 16 mg/dl (6-23) 07/25/25 Creat 0.77 mg/dl (0.6-1.2) 07/25/25 Glucose Level 99 mg/dl (70-99(Fasting)) 07/25/25 Testing Laboratory Results 07/12/25= UA: Cloudy in appearance, trace urine protein, ++ urine blood, ++ urine leukocyte esterase URINE CULTURE: More than three types of organisms present, all low counts mixed probable skin flaca Electrocardiogram Date: 07/25/25 SR with PACs at 91bpm Left axis deviation Minimal voltage criteria for LVH, may be normal variant Possible lateral infarct, age undetermined When compared to EKG from February 26, 2021- PACs are now present, borderline criteria for lateral infarct are now present per cardio (Discussed possible lateral infarct on EKG with Dr Guadarrama, patient with no significant cardiac history, good functional status; [facility] will [facility]) Other Testing Head CT 07/25/25= No acute intracranial abnormality. Cervical Spine CT 07/25/25= No acute fracture.
[~2025-08-21 08:42] MED LIST changes: -ACETAMINOPHEN 500 MG TAB PO SCH; -CeleBREX 200 MG CAP PO SCH; -FAMOTIDINE 20 MG TAB PO SCH; -LIDOCAINE HCL 2% 2 ML VIAL/AMP(20MG/ML) INFIL ONE; -LR 500ML BOLUS, THEN 15ML/HR IV SCH; -LR 60ML/HR IV SCH; -METOCLOPRAMIDE HCL 10 MG TABLET PO SCH; -MIDAZOLAM HCL 1 MG/ML 2ML VIAL ONE; -PROPOFOL IV EMULSION 10 MG/ML 20 ML VIAL IV ONE; -ROPIVACAINE 0.5% HCL/PF 150 MG, BUPIVACAINE 0.75% MPF 20 ML, EPINEPHrine 0.15 MG, Ketor... INFIL SCH; -Scopolamine 1 MG TDSY TD SCH; -TRANEXAMIC ACID 1,000 MG **IV Intra-op IV SCH; -TRANEXAMIC ACID 1,000 MG **IV Pre-op IV SCH; -ceFAZolin 2000MG 2,000 MG/15 ML SYR IV SCH; -dexAMETHasone 4 MG TAB PO SCH; -traMADol HCL 50 MG TABLET PO SCH
[2025-08-21] MEDS ORDERED: LIDOCAINE 2% 2 ML VIAL/AMP(20MG/ML) INFIL ONE (09:01)
[2025-08-21] MEDS ORDERED: ONDANSETRON INJ 2 MG/ML 2 ML VIAL ONE (09:02)
[2025-08-21] MEDS ORDERED: PROPOFOL IV EMULSION 10 MG/ML 20 ML VIAL IV ONE ×2 (09:02→11:47)
[2025-08-21] MEDS: LR 500ML BOLUS, THEN 15ML/HR IV SCH (09:41)
--- NOTE | 2025-08-21 09:53 | History & Physical Bridge Note ---
Date of Service August 21, 2025 History & Physical Bridge Note I have examined the patient, reviewed the History & Physical and in the interval since the performance of the History & Physical I have noted the following changes of clinical significance: no changes noted
[2025-08-21] MEDS: TRANEXAMIC ACID 1,000 MG **IV Pre-op IV SCH (09:59)
[2025-08-21] MEDS ORDERED: ePHEDrine sulfate 50 MG/5 ML SYR ONE (10:39)
[2025-08-21] MEDS: ORTHO JOINT ANESTHETIC ONE (10:59)
[2025-08-21] MEDS: ROPIVACAINE 0.5% HCL/PF 246 MG, Ketorolac (*for OR use only*) 30 MG, EPINEPHrine 30MG/3... INFIL SCH (12:00)
[2025-08-21] MEDS ORDERED: ATROPINE SULFATE 0.1 MG/ML 10ML SYR IV PRN (12:38)
[2025-08-21] MEDS ORDERED: ONDANSETRON INJ 2 MG/ML 2 ML VIAL IV PRN ×2 (12:38→14:16)
--- NOTE | 2025-08-21 12:41 | Operative Report ---
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 No resident or fellow was available to assist Estimated Blood Loss 50 Findings Consistent with Post-Op Diagnosis Specimens None Anesthesia Type Spinal MAC Complications none Disposition Disposition: Recovery Room Indications 84-year-old female, status post a right total hip arthroplasty done at the [facility] over 16 years ago. Right hip and been functioning well up until April of this year. She says she felt a pop while sitting down and is had pain ever since. She has also developed a severe Trendelenburg limp. Her physical exam was notable for severe weakness in her hip abduction 3 out of 5. She had a well-healed incision from her prior total hip arthroplasty. X-rays were reviewed and showed the arthroplasty components in good position without evidence of complication. I obtained an MRI to evaluate the status of the hip abductor tendon. This was a metal artifact reduction sequence. This was read as a full-thickness gluteus medius tear. I had a long discussion with the patie nt about her diagnosis and treatment options. Surgery is indicated to restore hip abductor function and a normal gait. I reviewed the risks and benefits of surgery, alternatives to surgery, and expected outcomes. After exploring all of her options she elected to proceed with surgery. All questions were answered. Informed consent was signed. Description of Procedure Patient was identified in the preoperative holding area where her surgical site was marked. She was given a spinal anesthetic. She was brought back to the operating room where she was moved onto the operating room table, then carefully turned onto the lateral decubitus position. Axillary roll was placed to protect her shoulder. All bony prominences were padded. Perioperative antibiotics and 1 g of IV tranexamic acid were administered. She was prepped and draped in usual sterile fashion. Prior to incision a multidisciplinary timeout was called. All in the room in agreement. I began by opening up the previous incision and extending this 2 cm in either direction in order to obtain normal soft tissue planes. I dissected down the subcutaneous tissues to the level of the fascia. Full-thickness flaps were raised above the fascia. Ethibond sutures could be visualized in the fascia from her prior surgery. These were removed. I then incised the fascia for a st andard posterior approach to the hip splitting the fibers of the gluteus shawn. Next, I inspected the hip abductor tendon and greater trochanter. The gluteus medius had a crescent-shaped tear that was retracted over 1 cm from the tip of the greater trochanter. There was 0 mobility in this tendon fragment. The hip abductor tendon insertion was completely barren with no tendon still attached w ith the exception of a small amount attached anteriorly. There were bony changes to the greater trochanter indicative that this was a chronic tear. At this point I made the decision to perform a gluteus shawn transfer as I felt that a abductor tendon primary repair had a very high likelihood of failure. Following a similar technique as described by Sola, I split the interval between the gluteus shawn and the TFL taking about 2 cm of the TFL with me to give me a triangular flap from the anterior aspect of the gluteus shawn with a good 3 to 4 cm of tendinous tissue from the fascia attached at the apex of the triangle. I then split the vastus lateralis. A tagging suture was placed. The hip was placed into about 15 degrees of abduction by placing a Murphy stand under the knee. I dissected the interval between the gluteus shawn and the medius to ensure that the flap was completely freed up. The undersurface of the tendon was debrided of any unhealthy tissue and slightly rasped to facilitate healing. Next, I prepared the insertion site on the greater trochanter using a rongeur as well as a file to create a healthy bleeding bone surface. Once this was complete I then opened up 2 Arthrex triple loaded fiber tack anchors. These were placed on the anterior and posterior aspects of the greater trochanter. Sutures were then passed in a horizontal mattress fashion for all 6 of the suture strands from each anchor. These were then tied down nicely compressing the tendon on to the greater trochanter. 2 pairs of sutures from each of the proximal anchors were then tied to each other to compress the tendon between the anchors down onto the greater trochanter. I then used a drill to make a transverse drill hole in the distal aspect of the greater trochanter. I passed 2 fiber link through this drill hole using a Snaptee suture passer. I then crisscrossed the tendon sutures using the fiber links to shuttle the sutures through the bone tunnel. Sutures were then sequentially tied down forming a nice cruciform area of compression of the tendon over the bleeding bony footprint. Next, 2 sets of sutures from the bone tunnel were again tied to each other to fu rther compress the tendon on the greater trochanter distally. I then sewed the very tip of the tendon into the vastus lateralis fascia which had been split using 0 Vicryl sutures in [id number] fashion. Finally, 0 Vicryl sutures were used to suture the gluteus medius tendon to the transferred gluteus shawn tendon anterior leading edge. At this point the wound was irrigated with copious amounts normal saline. I used a loop #1 PDS to close the fascial split distally up to the level of the gluteus shawn tendon transfer. This was a distance of approximately 6 cm. I then released about 3 cm of the anterior aspect of the tensor fascia jose. This was then sutured down onto the gluteus shawn using 0 PDS sutures to replicate the function of the anterior aspect of the gluteus medius. Next, the wound was reirrigated out. I then closed the subcutaneous tissue with a running 0 PDS suture. The deep dermis was closed with a running 2-0 Vicryl. Skin was closed with a Zipline and Dermabond. Silverlon dressing was followed by a compressive dressing. Patient was then awoke from anesthesia and transferred to cover room in stable condition. Postoperative course: Patient will be admitted overnight from the recovery room. Plan to keep her nonweightbearing for the next 6 weeks with no hip abduction against resistance. She is to avoid hip adduction past neutral for 6 weeks. Ot herwise hip range of motion can be performed as tolerated. Aspirin for DVT prophylaxis. I attest to the content of the Intraoperative Record and any orders documented therein. Any exceptions are noted below.
--- NOTE | 2025-08-21 12:49 | Operative Report ---
Post Operative Report Pre & Post Diagnosis Operation Date: 08/21/25 10:20 Pre-Op Diagnosis: Strain of Muscle, Fascia and Tendon of Right Hip Post-Op Diagnosis: Strain of Muscle, Fascia and Tendon of Right Hip I identified the patient and participated in the time-out.: Yes Procedure Operation Date: 08/21/25 10:20 Actual Procedures p Right Hip: Open Gluteus Shawn Transfer for Hip Abductor Tear(Right) - Jabier Bradshaw MD Surgeon Jabier Bradshaw MD Bacteriologist Industrial Shiva Ornelas PA-C. No resident or fellow was available to assist Estimated Blood Loss 50 Findings Consistent with Post-Op Diagnosis Specimens None Description of Procedure I was present for the entire case. I assisted with patient positioning, prepping, draping, retraction, suctioning, wound closure, dressing application. Please refer to Dr. Bradshaw's procedure note for full details. I attest to the content of the Intraoperative Record and any orders documented therein. Any exceptions are noted below.
--- NOTE | 2025-08-21 13:06 | XRay Report ---
XR hip 1V RT w pelvis CLINICAL HISTORY: IN PACU - Post Surgical COMPARISON: 06/13/2025 FINDINGS: Bilateral hip prostheses show no hardware complication. There is expected soft tissue gas on the right. IMPRESSION: Unremarkable postoperative exam. ACT 112: Negative or not required by law. Electronically signed by: Avinash Logan M.D. 08/21/2025 1:04 PM
--- NOTE | 2025-08-21 13:52 | Anesthesiology Progress Note ---
Date of Service August 21, 2025 Anesthesia Post Procedure Vital Signs Vital Signs: Temp Pulse Pulse Resp BP Pulse Ox O2 Del Method 08/21/25 13:45 82 15 112/66 98 Room Air 08/21/25 13:35 82 14 114/65 98 Room Air 08/21/25 13:25 36.3 C L 79 14 109/60 97 Room Air 08/21/25 13:15 81 14 120/63 97 Room Air 08/21/25 13:05 81 14 116/62 97 Room Air 08/21/25 12:55 83 14 107/62 97 Room Air 08/21/25 12:45 83 13 114/60 99 Oxymask 08/21/25 12:35 82 13 126/73 100 Oxymask 08/21/25 12:26 36 C L 88 20 96/66 L 100 Oxymask 08/21/25 09:13 36.5 C 87 20 130/82 98 Room Air O2 Flow Rate 08/21/25 13:45 08/21/25 13:35 08/21/25 13:25 08/21/25 13:15 08/21/25 13:05 08/21/25 12:55 08/21/25 12:45 2 08/21/25 12:35 5 08/21/25 12:26 11 08/21/25 09:13 Transfer of Care Handoff Completed per policy Notes Mental Status: alert / awake / arousable Patient Amnestic to Procedure: Yes Nausea / Vomiting: adequately controlled Pain: adequately controlled Airway Patency, RR, SpO2: stable & adequate BP & HR: stable & adequate Hydration State: stable & adequate Neuraxial Anesthesia: was administered and sensory block is resolving Anesthetic Complications: no major complications apparent and Pt Satisfied with anesthetic care
[2025-08-21] MEDS ORDERED: METOCLOPRAMIDE HCL INJ 5 MG/ML 2 ML VIAL IV PRN (14:16)
[2025-08-21] MEDS ORDERED: HYDROmorphone INJ 0.5 MG/0.5 ML SYR IV PRN (14:16)
[2025-08-21] MEDS ORDERED: NALOXONE HCL 0.4 MG/1 ML VIAL/CARP IV PRN (14:16)
[2025-08-21] MEDS ORDERED: diphenhydrAMINE Capsule 25 MG CAP PO PRN (14:16)
[2025-08-21] MEDS ORDERED: CLOBETASOL PROPIONATE 0.05% CREAM 15 GM TUBE TOP PRN (14:16)
[2025-08-21] MEDS ORDERED: MAGNESIUM HYDROXIDE SUSP 30 ML UDC PO PRN (14:16)
[2025-08-21] MEDS ORDERED: PROPYLENE GLYCOL GLYCERIN OP PRN (14:16)
[2025-08-21] MEDS ORDERED: TRIAMCINOLONE ACET 0.1% CR 15 GM TUBE TOP PRN (14:35)
[2025-08-21] MEDS: ACETAMINOPHEN 500 MG TAB PO SCH (15:14)
[2025-08-21] MEDS: SODIUM CHLORIDE 0.9% 1,000 ML IV SCH (15:20)
--- NOTE | 2025-08-21 16:16 | Orthopedic Progress Note ---
Date of Service August 21, 2025 Assessment & Plan (1) History of transfer of tendon: Plan: Discussed with patient that I injected numbing medication in her wound before closing her, and some of it probably got around her sciatic nerve causing her to lose motor function and sensation in the sciatic nerve distribution. I do not believe the sciatic nerve was injured during surgery, as we did not have any retractors there and didn't do any dissection around the nerve. Will observe for now, and anticipate she will regain full motor and sensory function when the numbing medication wears off. D/C IV fluids as she's tolerating orals Nursing may place stoner this evening if needed. Will do PT/OT tomorrow Non-weightbearing RLE. OK to rest her R foot on the ground, however. DVT prophylaxis with aspirin. Anticipate discharge to rehab tomorrow. Admission and Anticipated Discharge Date Admission Date: August 21, 2025 Subjective Patient seen on the floor POD 0. She reports no pain in her right hip. Says she can't feel anything below her knee, although starting to get some tingling in her foot. Denies f/c/cp/sob. Physical Exam Physical Exam: R leg: dressing c/d/i. No sensation to LT dorsal foot and anterior lower leg. Minimal sensation in the plantar foot. No toe or ankle flexion/extension. Foot warm, wp. Results & Data Vital Signs (Past 12 Hours) Vital Signs Temp Pulse Pulse Resp BP Pulse Ox O2 Del Method 08/21/25 15:15 84 15 121/67 100 Room Air 08/21/25 14:46 36.3 C L 88 15 119/65 97 Room Air 08/21/25 14:10 36.3 C L 80 14 115/68 100 Room Air 08/21/25 13:45 82 15 112/66 98 Room Air 08/21/25 13:35 82 14 114/65 98 Room Air 08/21/25 13:25 36.3 C L 79 14 109/60 97 Room Air 08/21/25 13:15 81 14 120/63 97 Room Air 08/21/25 13:05 81 14 116/62 97 Room Air 08/21/25 12:55 83 14 107/62 97 Room Air 08/21/25 12:45 83 13 114/60 99 Oxymask 08/21/25 12:35 82 13 126/73 100 Oxymask 08/21/25 12:26 36 C L 88 20 96/66 L 100 Oxymask 08/21/25 09:13 36.5 C 87 20 130/82 98 Room Air O2 Flow Rate 08/21/25 15:15 08/21/25 14:46 08/21/25 14:10 08/21/25 13:45 08/21/25 13:35 08/21/25 13:25 08/21/25 13:15 08/21/25 13:05 08/21/25 12:55 08/21/25 12:45 2 08/21/25 12:35 5 08/21/25 12:26 11 08/21/25 09:13
[2025-08-21 16:30] VITALS: RESP 16
[2025-08-21] MEDS: TRANEXAMIC ACID / 0.7% NACL 1,000 MG/100 ML BAG IV SCH (20:09)
[2025-08-21] MEDS: DOCUSATE SODIUM 100 MG CAP PO SCH (21:05)
[2025-08-21] MEDS: SENNA 8.6 MG TAB PO SCH (21:05)
[2025-08-22 06:46] LABS: Hematocrit (blood only) 36.9 % (37.0-47.0); Hemoglobin 12.9 g/dl (12.0-16.0); Immature Granulocytes # (auto) 0.05 K/uL (0.01-0.20); Immature Granulocytes % (auto) 0.5 %; Mean Corpuscular Hemoglobin 31.6 pg (25.0-34.0); Mean Corpuscular Volume 90.4 fL (80.0-100.0); Platelet Count 192 K/uL (130-400); RDW Standard Deviation 43.9 fL (36.4-46.3); Red Blood Count 4.08 M/uL (4.20-5.40); White Blood Count 9.81 K/ul (4.8-10.8)
[2025-08-22 06:53] LABS: Anion Gap 7.0 (3-11); Blood Urea Nitrogen 15.0 mg/dl (6-23); Calcium 8.9 mg/dl (8.6-10.3); Carbon Dioxide 27.0 mmol/L (21-32); Chloride 105.0 mmol/L (98-107); Creatinine Clr Calc Pharmacy 46.4 ml/min; Glucose 89.0 mg/dl (70-99(Fasting)); Potassium 3.7 mmol/L (3.5-5.1); Sodium 139.0 mmol/L (136-145)
[2025-08-22] MEDS: CHOLECALCIFEROL 25 MCG (1000 UNITS) TAB PO SCH (08:14)
[2025-08-22] MEDS: ASPIRIN 81 MG ECTAB PO SCH (08:14)
[2025-08-22] MEDS: MULTIVITAMIN TAB PO SCH (08:14)
[2025-08-22] MEDS: HYDROXYCHLOROQUINE SULFATE 200 MG TAB PO SCH (08:14)
[2025-08-22] MEDS: hydroCHLOROthiazide 25 MG TAB PO SCH (08:15)
--- NOTE | 2025-08-22 10:19 | Orthopedic Progress Note ---
Date of Service August 22, 2025 Assessment & Plan (1) History of transfer of tendon: Plan: Patient has regained full motor and sensory function of the right lower extremity D/C IV fluids as she's tolerating orals May DC patient's Joshi Will do PT/OT tomorrow Non-weightbearing RLE. OK to rest her R foot on the ground, however. DVT prophylaxis with aspirin. Anticipate discharge to rehab Today. Case management referral placed Ice with easy wrap Pain control with p.o. medication Follow-up at [facility] orthopedics as previously scheduled Keep Silverlon dressing in place With questions contact our clinic at [phone]. Admission and Anticipated Discharge Date Admission Date: August 21, 2025 Subjective This 84-year-old female is day 1 status post Open Gluteus Shawn Transfer for Irreparable Right Hip Abductor Tendon Tear. She states she is doing very well. She states that she was able to participate with physical therapy. She denies any numbness or tingling in her right lower extremity. She states that the blocks seem to wear off late last night. Currently she denies chest pain, shortness of breath, fever, chills, sweats, nausea, vomiting, diarrhea or difficulty voiding. She is planning on being discharged to a rehab facility. I have consulted case management. Review of Systems Review of Systems: All systems reviewed & are unremarkable except as noted in Subjective Physical Exam Physical Exam: Right lower extremity: Outer dressing was removed. Silverlon is clean dry intact and left in place. Patient is able to perform active straight leg raise test. She is able to actively dorsi and plantarflex her foot. She is able to detect light sensation to touch over the pads of all digits. Quad strength is 3+ out of 5. She tolerates light passive hip flexion to about 70 degrees. I did not do any hip internal/external rotation AB or adduction due to the surgery. Patient is neurovascularly intact in the right lower extremity. Results & Data Vital Signs (Past 12 Hours) Vital Signs Temp Pulse Pulse Resp BP Pulse Ox O2 Del Method 08/22/25 07:00 36.7 C 73 16 130/78 97 Room Air 08/22/25 03:33 36.7 C 74 16 154/82 H 97 Room Air 08/22/25 00:34 36.8 C 69 16 112/67 96 Room Air Diagnostic Findings Laboratory Results WBC 9.81 K/ul (4.8-10.8) 08/22/25 05:37 RBC 4.08 M/uL (4.20-5.40) L 08/22/25 05:37 Hgb 12.9 g/dl (12.0-16.0) 08/22/25 05:37 Hct 36.9 % (37.0-47.0) L 08/22/25 05:37 MCV 90.4 fL (80.0-100.0) 08/22/25 05:37 MCH 31.6 pg (25.0-34.0) 08/22/25 05:37 MCHC 35.0 g/dL (32.0-36.0) 08/22/25 05:37 RDW Std Deviation 43.9 fL (36.4-46.3) 08/22/25 05:37 RDW Coeff of Ivana 13.3 % (11.5-14.5) 08/22/25 05:37 Plt Count 192 K/uL (130-400) 08/22/25 05:37 MPV 9.7 fL (9.4-12.4) 08/22/25 05:37 Immature Gran % (Auto) 0.5 % 08/22/25 05:37 Neut % (Auto) 79.1 % 08/22/25 05:37 Lymph % (Auto) 9.0 % 08/22/25 05:37 Boyle % (Auto) 10.3 % 08/22/25 05:37 Eos % (Auto) 0.9 % 08/22/25 05:37 Baso % (Auto) 0.2 % 08/22/25 05:37 Neut # (Auto) 7.76 K/uL (1.40-6.50) H 08/22/25 05:37 Lymph # (Auto) 0.88 K/uL (1.20-3.40) L 08/22/25 05:37 Boyle # (Auto) 1.01 K/uL (0.11-0.59) H 08/22/25 05:37 Eos # (Auto) 0.09 K/uL (0.00-0.50) 08/22/25 05:37 Baso # (Auto) 0.02 K/uL (0.00-0.20) 08/22/25 05:37 Immature Gran # (Auto) 0.05 K/uL (0.01-0.20) 08/22/25 05:37 Sodium 139 mmol/L (136-145) 08/22/25 05:37 Potassium 3.7 mmol/L (3.5-5.1) 08/22/25 05:37 Chloride 105 mmol/L (98-107) 08/22/25 05:37 Carbon Dioxide 27 mmol/L (21-32) 08/22/25 05:37 Anion Gap 7 (3-11) 08/22/25 05:37 BUN 15 mg/dl (6-23) 08/22/25 05:37 Creatinine 0.79 mg/dl (0.6-1.2) 08/22/25 05:37 Est Cr Clr Drug Dosing 46.4 ml/min 08/22/25 05:37 eGFR 74.17 08/22/25 05:37 BUN/Creatinine Ratio 19.0 (10-20) 08/22/25 05:37 Glucose 89 mg/dl (70-99(Fasting)) 08/22/25 05:37 Calcium 8.9 mg/dl (8.6-10.3) 08/22/25 05:37 Impressions Hip/Pelvis X-Ray 08/21/25 12:46 XR hip 1V RT w pelvis CLINICAL HISTORY: IN PACU - Post Surgical COMPARISON: 06/13/2025 FINDINGS: Bilateral hip prostheses show no hardware complication. There is expected soft tissue gas on the right. IMPRESSION: Unremarkable postoperative exam. ACT 112: Negative or not required by law. Electronically signed by: Avinash Logan M.D. 08/21/2025 1:04 PM
--- NOTE | 2025-08-22 10:26 | Discharge Summary ---
Date of Service August 22, 2025 Admission HPI Per Admitting Provider History of Present Illness (including history relevant to procedure): This 84-year-old female presents to the clinic today for her preoperative history and physical. Patient states she felt a snap in early April while sitting down and hasbeenexperiencingconstant pain since. She has the greatest pain in her lumbar region that onset after prolonged standing and walking. She has been going to formal PT but feels the pain has become worse. Patient states that now she is having trouble sleeping at night. She is walking with a considerable limp and that any type of activity exacerbates her pain. Due to failed c onservative management she is electing proceed with surgical intervention. Review Of Systems: A 12 point review of systems is performed and is unremarkable except for those things stated in the HPI and past medical history. Past Medical History: Problems: Diverticulosis Gout Hypertension History of breast cancer S/P total hip arthroplasty Actinic cheilitis Actinic keratoses History of squamous cell carcinoma Hand arthritis Arthritis of foot Lupus Procedure History Procedure Procedure Date Comments Punch biopsy of skin Excision 01/02/2025 - right dorsal hand Curettage and cauterization of skin lesion 11/23/2023 - left neck Shave biopsy 10/31/2023 - left neck Closed fracture of left femur 03/2021 History of total replacement of left hip joint 03/2021 History of hip surgery 2020 - left hip Shave biopsy and cauterisation of skin 07/20/2020 Reverse shoulder replacement 12/26/2019 Mohs micrographic surgery 12/25/2018 Shave biopsy and cauterization of skin 11/27/2018 - right guevara Anterior colporrhaphy 12/13/2017 Cystourethroscopy 12/13/2017 Cystourethroscopy 05/01/2017 Hysterectomy 05/01/2017 Uterosacral ligament 05/01/2017 Mammogram - screening 09/15/2016 - Amendment; Prior outside mammograms from the [facility] dated 09/02/13, 09/23/2013, 09/03/2014, 09/09/15 became available for review. there has been no significant interval change compared to the recent prior mammograms. There are stable post surgical changes/posttreatment changes in the left breast. Scattered benignappearing calcifications bilaterally. No new suspicious mass, architectural distortion or cluster of suspicious microcalcifications is identified. Advise follow-upp in 1 year for next annual screening mammogram. - Impression: Expected postsurgical changes in the left breast from prior lumpectomy. There is no mammograpic evidence of maligna ncy bilaterally. Prior outside mammograms are currently being requested and if obtained they will be reviewed and compared to the current exam to assess for any more subtle changes. Then an addendum will be paid to this report. Otherwise, a 1 year screening mammogram is recommended. The patient will receive written notification of the results. Bone density scan 09/15/2016 - T-score: -1.5. Excision squamous cell ca of Right lower leg 2014 - 2014 Pap smear for cervical cancer screening 07/29/2015 - Diagnosis: Negative for intraepithelial lesion or malignancy. Lumpectomy of breast left 2013 - 2013 Pap smear for cervical cancer screening 07/08/2014 - diagnosis: negative for intraepithelial lesion or malignancy. Squamous epithelial atrophy. Pap smear for cervical cancer screening 07/03/2013 - diagnosis: Negative for intraepithelial lesion or malignancy. Hip replacement right 2010 - 2010 Cataracts, bilateral 2010 - 2010 Allergies and Sensitivities: morphine(Vomiting) scallops(nausea, vomitting & diarrhea) lobster(nausea, vomitting, diarrhea) Current Home Meds: (Last Updated 07/23 11:05) alendronate (alendronate 70 mg oral tablet) 70 mg PO q7days allopurinol (allopurinol 300 mg oral tablet) TAKE 1 TABLET BY MOUTH DAILY atorvastatin (atorvastatin 80 mg oral tablet) 30 tab, 0 Refill(s) Responsible Provider: RISHI LOZANO 03/19 10:15 clobetasol topical (clobetasol 0.05% topical solution) Apply twice daily to affected areas of the scalp until improved or for a maximum of 4 weeks continuously. hydroCHLOROthiazide (hydroCHLOROthiazide 25 mg oral tablet) TAKE 1 TABLET BY MOUTH DAILY hydroxychloroquine (hydroxychloroquine 200 mg oral tablet) TAKE 1 AND 1/2 TABLETS BY MOUTH DAILY lisinopril (lisinopril 5 mg oral tablet) TAKE 1 TABLET BY MOUTH DAILY mometasone topical (mometasone 0.1% topical ointment) Apply 1-2 g once daily to affected areas of the face, neck, chest and arms until improved or for a maximum of 4 weeks continuously (up to 2 weeks for the face). predniSONE (predniSONE 5 mg oral tablet) TAKE 1 TABLET BY MOUTH DAILY triamcinolone topical (triamcinolone 0.025% topical ointment) 1 appl topical bid Admission Exam Per Admitting Provider Initial Wt: 07/23 61.4 kg 135 lb Physical Exam: (relevant to the procedure, including heart and lung evaluation) General: Alert and oriented x 3 with proper grooming and hygiene Eyes: Pupils are equal and reactive to light with accommodation. Extraocular movements are intact Throat: Posterior oropharynx clear without some edema, erythema or exudate Cardiac: Regular rate and rhythm with no murmurs or gallops appreciated Lungs: Clear to auscultation throughout with no wheezing, rales or rhonchi Abdomen: Nonobese, nondistended, nontender with normal active bowel sounds Extremities: Right hip; ROM: Flexion 100/ External rotation 45/ Internal rotation 10 3+/5Hip abductorStrength - Log roll + Tenderness over trochanteric bursa, gluteus medius - Stinchfield test -Tenderness lumbo sacral spine, piriformis, sciatic nerve -SI joint tenderness - Alan's testWell healed incision for previous BALJIT Trendelenburg gate 3mm shorter left leg than rightNeuro: Cranial nerves II through XII are intact no motor or sensory deficit Skin: Normal appearance with no open skin areas or discharge Principal Diagnosis Right hip abductor tendon tear Discharge Exam Right lower extremity: Outer dressing was removed. Silverlon is clean dry intact and left in place. Patient is able to perform active straight leg raise test. She is able to actively dorsi and plantarflex her foot. She is able to detect light sensation to touch over the pads of all digits. Quad strength is 3+ out of 5. She tolerates light passive hip flexion to about 70 degrees. I did not do any hip internal/external rotation AB or adduction due to the surgery. Patient is neurovascularly intact in the right lower extremity. Discharge Data Allergies Allergy/AdvReac Type Severity Reaction Status Date / Time adhesive tape Allergy ITCHING Verified 08/21/25 09:01 shellfish derived AdvReac Intermediate Gastrointestinal Verified 08/21/25 09:01 Upset morphine AdvReac Mild severe N/V Verified 08/21/25 09:01 Procedures Performed Operation Date: 08/21/25 10:20 Actual Procedures p Right Hip: Open Gluteus Shawn Transfer for Hip Abductor Tear(Right) - Jabier Bradshaw MD Hospital Course (1) History of transfer of tendon: Patient has regained full neurologic function of her right lower extremity following the surgery. Her plan is to be discharged home to rehab today for the next few weeks. Patient will then do 2 weeks of in-home therapy before trans itioning to [facility] for outpatient therapy. She is very pleased with the results of the surgery. She understands that she will need to be nonweightbearing on the right lower extremity for the next 6 weeks. Patient has regained full motor and sensory function of the right lower extremity D/C IV fluids as she's tolerating orals May DC patient's Joshi Will do PT/OT tomorrow Non-weightbearing RLE. OK to rest her R foot on the ground, however. DVT prophylaxis with aspirin. Anticipate discharge to rehab Today. Case management referral placed Ice with easy wrap Pain control with p.o. medication Follow-up at [facility] orthopedics as previously scheduled Keep Silverlon dressing in place With questions contact our clinic at [phone]. Total Time Total Time Spent Total Time Spent (In Minutes): 25 mins Discharge Plan Discharge Items Patient Disposition: Transfer Inpatient Rehab Fac Reason For Visit: Strain of Muscle, Fascia and Tendon of Right Hip Discharge Diagnosis: Open Gluteus Shawn Transfer for Irreparable Right Hip Abductor Tendon Tear Activity: As commented below Lifting: None Bathing: Keep incision dry Bathing Comment: May shower later today Sexual Activity: Wait until after follow-up appointment Exercise/Sports: Wait until after follow-up appointment Driving/Machine Use: No driving until cleared by land acquisition specialist Weightbearing: Right non-weightbearing Weightbearing Comment: With walker assistance x 6 weeks Non-emergency contact: Surgeon Call non-emergency contact if: you have any medication questions, your pain is not controlled, your temperature is above 101.5, your wound has increased drainage and your wound pain has increased Follow-up/Referrals: Dolly Perez DO [Primary Care Provider] - Diet: Regular Addtl Attending Provider Instructions: Post-operative Instructions Dear Patient and Family/Friends, Before you are discharged from the hospital, it is important to know what to expect when you get home after surgery. To that end, we have created this sheet of discharge instructions which covers many commonly asked questions. Make sure you go through this sheet in its entirety with your nurse before you are discharged. Please note that we will go over the specifics of your surgery and recovery when you return for your first post-operative visit. Sincerely, Dr. Bradshaw Pain Expect to be in a fair amount of pain after surgery. Remember, our goal is not to eliminate your pain, but to make it tolerable. It is a good idea to stay ahead of your pain by taking the medications you were prescribed once you get home. Typically, the pain starts improving 3-7 days after surgery. You should start weaning off the narcotic pain medication (oxycodone, hydrocodone, hydromorphone, morphine) as soon as your pain improves. Please call our office if your pain is not adequately controlled. Ice Ice your operative site at least 5 times a day for 15-30 minutes at a time. Make sure you have a thin cloth between the ice or cooling unit and your skin to prevent tyler bite. This is especially important if you received a nerve block. Continue icing your operative site for the first 5-7 days after surgery, then as needed. Diet/Nausea/Vomiting Start by drinking clear liquids and eating crackers. If you can tolerate this, then you may resume your normal diet. If you feel nauseated or vomit, take Zofran/ondansetron (if prescribed). Please call our office if you have intractable nausea or vomiting, or, if after hours, you may go to the Emergency Room for help. Constipation Constipation is a common side effect of narcotic pain medication. If you have not had a bowel movement within 2 days after surgery, we recommend purchasing an over the counter laxative such as Milk of Magnesia, Dulcolax, or Miralax from a local pharmacy, and taking it as instructed. Call our clinic if any questions. Nerve block The anesthesia team sometimes places a nerve block to help with post-operative pain control. This results in significant numbness and inability to move the extremity. The nerve block usually wears off in 8-12 hours, but sometimes can last up to 24 hours. Please call our office if you are still unable to move your extremity after 24 hours, unless you received a pain pump to take home. Nerve blocks typically wear off quickly, so start taking pain medication as soon as you start feeling soreness near your surgical site. Weight bearing and Range of Motion. Do not bear any weight through your operative extremity immediately after surgery. If you had upper extremity surgery, do not lift anything with that arm. If you are in a knee brace, keep it locked in place until your follow-up. We will discuss your weight bearing, range of motion, and lifting restrictions in detail at your first post-operative appointment. Continuous Passive Motion (CPM) Machine If you were prescribed a CPM machine, it will start after your first post- operative appointment, at which time we will give you instructions on the range of motion settings and duration of treatment Physical therapy You will be given a prescription for physical therapy or occupational therapy at your first post-operative appointment. Typically, patients start therapy within 1 week of surgery Wound care and showering We will inspect your wound at your first post-operative visit, and may do a dressing change at that time. Most patients will be in a water-proof dressing that is removed 14 days after surgery. It is normal to see some dried blood on the dressing. Do not remove your dressing, paper strips or sutures yourself unless you are given permission. Showering is allowed the day after surgery. Do not scrub or remove any dressings. The wound should not be submerged underwater (i.e. in a bathtub or pool) until 4 weeks after surgery ARTHUR stockings If you were given white stockings, these are to be worn at all times except to shower (on both legs) for the first 2 weeks after surgery. Driving You may not drive while taking narcotic pain medication or while in a cast, splint, sling or brace. You, the patient, need to make the final determination about when you are safe to drive, however, the earliest you may consider driving after surgery is below: Hand/Wrist/Elbow Surgery: 3 days Shoulder Surgery: 2 weeks Hip,/Knee/Ankle Surgery: 4 weeks Fracture repair: 6 weeks Return to Work Your return to work depends on what surgery was done and what type of work you do. Please bring any paperwork your employer needs completed to your first post-operative visit. Also, bring a description of your job duties, as this helps us to understand what risks you may face at work. Travel Avoid long distance travel (greater than 1 hour) in airplanes and cars for the first 6 weeks after surgery. If you must travel, you need to have a Doppler ultrasound done before you travel to rule out a blood clot in your legs. Follow-up You should have a follow-up appointment already scheduled 1-2 days after surgery. If not, please contact our office to make this appointment before you leave the hospital. When to call the office It is normal to have swelling and bruising in the limb that was operated on. This will improve with time. It is also normal to have fevers for the first 2 days after surgery. Reasons you should call your doctor include: Uncontrolled pain; Nausea, vomiting, or constipation that does not improve with medication; Fevers over 101.5, chills, sweats; Drainage or bleeding from the wound; Foul odor; Spreading areas of redness; Any other concerns. Contact Information Please call Dr. Bradshaw's office at [phone] with any concerns. Pending Studies at Discharge: No Stand-Alone Forms: My [facility] Skilled Items Patient informed of condition?: Yes DNR: No Discharge Level of Care: Acute rehab Communicable Disease: No Discharge Prognosis: Stable Lines: None Urinary Catheter: No Medications and DC Order Prescriptions: New aspirin 81 mg Tablet,Delayed Release (Dr/Ec) 81 mg PO BID 30 Days Qty: 60 0RF tramadol 50 mg Tablet 50 - 100 mg PO Q4H MDD Max 6/day PRN (Reason: Postoperative pain control) Qty: 28 0RF celecoxib [Celebrex] 100 mg capsule 100 mg PO BID 30 Days Qty: 60 0RF Continued hydroxychloroquine [Plaquenil] 200 mg tablet 200 mg PO QAM Rx Instructions: original:200mg po qam 05/09- per fill history 03/11 90 day supply #135: 300mg (1.5 tabs) po daily clobetasol 0.05 % cream 1 applic topical DAILY PRN (Reason: lupus flare) mometasone 0.1 % cream 1 applic topical DAILY PRN (Reason: lupus flare) prednisone 5 mg tablet 5 mg PO QAM allopurinol [Zyloprim] 300 mg tablet 300 mg PO QAM hydrochlorothiazide 25 mg tablet 25 mg PO QAM lisinopril [Zestril] 5 mg tablet 5 mg PO QAM alendronate [Fosamax] 70 mg Tablet 70 mg PO Q7D Patient Comments: TAKES ON SUNDAYS Rx Instructions: 02/26/21 :THIS MED TEMPORARILY ON HOLD. TAKE THIS MED EVERY MONDAY WHEN IT RESUMES. Soothe Lubricant 0.6-0.6 % dropperette 1 drp ophthalmic (eye) HS PRN (Reason: Dry Eye(S)) Rx Instructions: otc unable to verify cholecalciferol (vitamin D3) [Vitamin D3] 50 mcg (2,000 unit) Tablet 100 mcg PO QAM acetaminophen 500 mg tablet 1,000 mg PO Q8H MDD 3000MG PRN (Reason: mild to moderate pain) Rx Instructions: max of 3000mg a day, can purchase over the counter otc unable to verify Discharge Orders: Discharge Order (Routine); Ordered 08/22/25 Ordered By: [place] Admission Data Admit Date/Time: 08/21/25 12:46 Attending Provider: Jabier Bradshaw Admit Provider: Jabier Bradshaw Primary Care Provider: Dolly Perez
[2025-08-22 22:52] VITALS: BP 101/63; TEMP 98.1; O2SAT 96
[2025-08-23 09:50] VITALS: PULSE 99
[2025-08-24] MEDS ORDERED: ALENDRONATE SODIUM 70 MG TAB PO SCH (06:30)
== END 2025-08-23 12:43 ==
LOC: 3E 08:42 → ASU 08:42